=== PATIENT | male | born 1940 | race African-American/Black ===

== ENCOUNTER → 2017-01-26 | Outpatient (CLI) | payer BC ==
[~2017-01-26] MED LIST: B-COCAP2 PO; CALC-51 PO; MULT-506 PO; PRLSR20 PO; TAMS0.4C38 PO; VITAMIN B12 PO; vitamin d PO
[2017-01-26 17:04] LABS: ALB/GLOB RATIO 1.2 (0.9-2); ALKALINE PHOSPHATASE 55 U/L (45-117); ALT/SGPT 34 U/L (12-78); AST/SGOT 16 U/L (15-37); BLOOD UREA NITROGEN 13 mg/dl (7-18); BUN/CREATININE RATIO 11.6 (10-20); CALCIUM 9.1 mg/dl (8.5-10.1); CARBON DIOXIDE 27 mmol/L (21-32); CHLORIDE 108 mmol/L (98-107); GLUCOSE 99 mg/dl (70-99); POTASSIUM 3.9 mmol/L (3.5-5.1); SODIUM 143 mmol/L (136-145)
== END | disposition home or self-care (01) ==
LOC: C.LAB1850 15:00
PROVIDERS: ATTEND Internal Medicine
DX: E55.9 Vitamin D deficiency, unspecified (principal); G62.9 Polyneuropathy, unspecified; R74.8 Abnormal levels of other serum enzymes; Z86.39 Personal history of other endocrine, nutritional and metabolic disease

== ENCOUNTER → 2018-01-06 | Outpatient (CLI) | payer BC | END | disposition home or self-care (01) | LOC: C.LAB1850 15:58 | PROVIDERS: ATTEND Urology | DX: R35.0 Frequency of micturition (principal); R97.20 Elevated prostate specific antigen [PSA]; R35.1 Nocturia ==

== ENCOUNTER 2018-01-23 10:22 | Emergency (ER) | payer BC ==
[~2018-01-23] VITALS: Ht 180.3 cm; Wt 103.6 kg
[2018-01-23 10:28] VITALS: TEMP 36.4; Ht 180.3 cm; Wt 103.6 kg
[2018-01-23] MEDS ORDERED: PROPARACAINE HCL 0.5% OP SOLN 15 ML BTL ONE (10:58)
[2018-01-23] MEDS ORDERED: CYAN100020 PO (11:44)
[2018-01-23] MEDS ORDERED: CHOL100010 PO (11:44)
[2018-01-23] MEDS ORDERED: B-CO1CAP17 PO (11:44)
[2018-01-23] MEDS ORDERED: CALC-51 PO (11:44)
[2018-01-23 12:21] VITALS: BP 154/90; PULSE 62; O2SAT 98
--- NOTE | 2018-01-23 16:35 | EMERGENCY ROOM VISIT NOTE ---
History Report prepared by Ashia: Regino Shepherd Under the Supervision of: Dr. Roque Nowak M.D. First contact with patient: 10:44 Chief Complaint: EYE ASSESSMENT Stated Complaint: B/L RED EYE History of Present Illness The patient is a 77 year old male who presents to the Emergency Room with complaints of persistent left eye redness since yesterday. He states that he was on Skype with his daughter last night, when she noticed his left eye was red. He states that his insisted that he come to the ED for evaluation. He notified his eye doctor, though they were unable see him today. He denies any pain or changes to his vision. He denies any new discharge to his left eye. He notes that his right eye seems more teary-eyed than normal. He denies any crusting to the eye when he woke up this morning. He has a history of conjunctivitis. He wears glasses. He denies any history of glaucoma. He denies any trauma to his eye. He states that he has not been rubbing his eyes. Source of History: patient Onset: since yesterday Position: eye (left) Quality: other (redness) Timing: other (persistent) Note: He denies any pain or changes to his vision. He denies any crustiness or discharge to left eye. Review of Systems See HPI for pertinent positives & negatives. A total of 6 systems reviewed and were otherwise negative. Past Medical & Surgical Medical Problems: (1) Abnormal LFTs (2) Epigastric abdominal pain (3) Non-viral hepatitis Surgical Problems: (1) H/O parathyroidectomy (2) History of cholecystectomy Family History Cancer FH: heart disease FHx: gallbladder disease Hypertension Seizures Social History Smoking Status: Former Smoker Smokeless Tobacco Use: No Alcohol Use: occasionally Drug Use: none Marital Status: Housing Status: lives with significant other Occupation Status: unemployed Current/Historical Medications Scheduled Calcium Carbonate-Vitamin D (Calcium), 1 TAB PO DAILY Cholecalciferol (Vitamin D), 1 TAB PO DAILY Cyanocobalamin (Vitamin B12), 1 TAB PO DAILY Multivitamin (Multivitamin), 1 TAB PO DAILY Omeprazole (Prilosec), 20 MG PO DAILY Tamsulosin Hcl (Flomax), 1 CAP PO DAILY Vitamin B Cmplx/Vitc/Folic Ac (Nephrocaps), 1 CAP PO DAILY Allergies Coded Allergies: No Known Allergies (Verified , 09/23/15) Physical Exam Vital Signs Date Time Temp Pulse Resp B/P (MAP) Pulse Ox O2 Delivery O2 Flow Rate FiO2 01/23/18 12:21 62 18 154/90 98 01/23/18 10:28 36.4 64 16 173/115 97 Room Air Physical Exam GENERAL: Awake, alert, no distress, sitting on stretcher. HEENT: Mucous membranes moist. Conjunctival injection to lateral superior aspect of left eye. No crusting of lashes, no tearing. Left pupil is round and reactive to light. EOM intact and full. Visual acuity is 20/20 in both eyes. NEUROLOGIC: Awake and alert. Oriented x 3, no focal motor deficits. Medical Decision & Procedures Procedure Slit Lamp Examination Indication:left eye redness Slit lamp examination was performed in the standard fashion. Cornea appeared clear. Anterior chamber clear. Scleral injection was present laterally and superiorly. Zero discharge present. Fluorescein examination performed and revealed no uptake. No foreign bodies noted. Negative Hardik sign. The patient tolerated the procedure well without complication. ED Course 1047: The patient was evaluated in room C4. A complete history and physical exam was performed. 1108: I reassessed the patient at this time. I performed a slit lamp exam of the patient's left eye. Left eye pressure was 14 and right eye pressure was 15. 1216: I spoke with Dr. Carter, curbing stonecutter. We discussed the patient's case. He agrees with treatment plan. 1219: I reassessed the patient at this time. He is feeling better and resting comfortably. I discussed the results and treatment plan with the patient. I answered all pertaining questions that he had. He expressed understanding and verbalized agreement. The patient will be discharged home. Medical Decision The patient is a 77 year old male who presents to the ED with complaints of left eye redness. Differential diagnoses considered include subconjunctival hemorrhage, conjunctivitis, glaucoma, and allergic reaction. The patient presents with painless redness of the left eye. There has been no tearing or visual loss. On exam, the patient appeared to have a subconjunctival hemorrhage. Visual acuity was 20/20 in both eyes. Pressure testing in both eyes revealed a normal value. Slit-lamp exam did not reveal any concerning lesion or corneal irritation. The patient did not have any tearing from his eye. His blood pressure was high here but he was anxious and worked up and he states that the last time his blood pressure was taken, it was normal. The patient appears to have a subconjunctival hemorrhage. I did speak with ophthalmology. The patient is being discharged with [id number] eyedrops. He will follow with ophthalmology. If things are worsening, he can return. Medication Reconcilliation Current Medication List: was personally reviewed by me Blood Pressure Screening Patient's blood pressure: Elevated blood pressure Blood pressure disposition: Referred to PCP Consults Time Called: 1124 Consulting Physician: Dr. Carter, curbing stonecutter Returned Call: [address] Carter, curbing stonecutter. We discussed the patient's case. He agrees with treatment plan. Impression Primary Impression: Subconjunctival hemorrhage of left eye Scribe Attestation The scribe's documentation has been prepared under my direction and personally reviewed by me in its entirety. I confirm that the note above accurately reflects all work, treatment, procedures, and medical decision making performed by me. Departure Information Dispostion Home / Self-Care Referrals RV. Da Silva MD (PCP) Forms HOME CARE DOCUMENTATION FORM, IMPORTANT VISIT INFORMATION Patient Instructions My [facility] Additional Instructions use otc saline drops to the eye 1 drop every few hours return if worsening see your eye doctor as scheduled have your blood pressure rechecked by your doctor
== END 2018-01-23 12:21 | disposition home or self-care (01) ==
LOC: C.EDB 10:23 → C.EDC 12:21
DX: H11.32 Conjunctival hemorrhage, left eye (principal); Z87.891 Personal history of nicotine dependence; Z80.9 Family history of malignant neoplasm, unspecified; Z82.49 Family history of ischemic heart disease and other diseases of the circulatory system; Z83.79 Family history of other diseases of the digestive system; Z82.0 Family history of epilepsy and other diseases of the nervous system

== ENCOUNTER → 2018-03-03 | Outpatient (CLI) | payer BC ==
[~2018-03-03] MED LIST changes: +B-CO1CAP17 PO; -B-COCAP2 PO; +CHOL100010 PO; +CYAN100020 PO; -VITAMIN B12 PO; -vitamin d PO
[2018-03-03 16:52] LABS: ALBUMIN 3.7 gm/dl (3.4-5.0); ALT/SGPT 21 U/L (12-78); BLOOD UREA NITROGEN 18 mg/dl (7-18); CARBON DIOXIDE 25 mmol/L (21-32); GLUCOSE 83 mg/dl (70-99); SODIUM 141 mmol/L (136-145)
[2018-03-03 16:55] LABS: ALKALINE PHOSPHATASE 65 U/L (45-117); AST/SGOT 17 U/L (15-37); TOTAL PROTEIN 6.9 gm/dl (6.4-8.2)
== END | disposition home or self-care (01) ==
LOC: C.LABBC 14:05
PROVIDERS: ATTEND Internal Medicine
DX: R74.8 Abnormal levels of other serum enzymes (principal); M81.0 Age-related osteoporosis without current pathological fracture

== ENCOUNTER 2024-03-28 08:02 | Inpatient (IN) ==
--- NOTE | 2024-03-28 09:13 | XRay Report ---
SINGLE VIEW CHEST CLINICAL HISTORY: Dyspnea FINDINGS: An AP, portable, upright chest radiograph is compared to chest x-ray and chest CT dated 05/04. The heart is enlarged noting atherosclerotic calcification of the thoracic aorta. There is pul monary vascular congestion. Bilateral airspace opacities likely represent interstitial edema. There a re small layering pleural effusions with dependent consolidation. No pneumothorax is seen. The skelet al structures are osteopenic. The bony thorax is grossly intact. IMPRESSION: 1. Cardiomegaly with evidence of congestive failure. 2. Bilateral airspace opacities likely represent pulmonary edema. Correlate clinically for evidence o f a superimposed infectious/inflammatory pneumonitis. Radiographic follow-up to resolution is recomme nded. 3. Layering pleural effusions with dependent consolidation. ACT 112: Negative or not required by law. Electronically signed by: Roque Wong M.D. 03/28/2024 9:12 AM
[2024-03-28 09:15] LABS: Basophils # (auto) 0.05 K/uL (0.00-0.20); Basophils % (auto) 0.8 %; Eosinophils # (auto) 0.02 K/uL (0.00-0.50); Eosinophils % (auto) 0.3 %; Hematocrit (blood only) 43.8 % (42.0-52.0); Hemoglobin 15.1 g/dl (14.0-18.0); Immature Granulocytes # (auto) 0.02 K/uL (0.01-0.20); Immature Granulocytes % (auto) 0.3 %; Lymphocytes # (auto) 1.15 K/uL (1.20-3.40); Lymphocytes % (auto) 18.2 %; Mean Corpuscular Hemoglobin 31.3 pg (25.0-34.0); Mean Corpuscular Hgb Conc 34.5 g/dL (32.0-36.0); Mean Corpuscular Volume 90.7 fL (80.0-100.0); Mean Platelet Volume 11.1 fL (9.4-12.4); Monocytes # (auto) 0.43 K/uL (0.11-0.59); Monocytes % (auto) 6.8 %; Neutrophils # (auto) 4.65 K/uL (1.40-6.50); Neutrophils % (auto) 73.6 %; Platelet Count 216 K/uL (130-400); RDW Coefficient of Variation 13.6 % (11.5-14.5); RDW Standard Deviation 45.4 fL (36.4-46.3); Red Blood Count 4.83 M/uL (4.70-6.10); White Blood Count 6.32 K/ul (4.8-10.8)
[2024-03-28] MEDS: FUROSEMIDE INJ 20 MG/2 ML VIAL IV STA (09:35)
[2024-03-28 09:42] LABS: Albumin Globulin Ratio 1.5 (0.9-2); BUN Creatinine Ratio 18.7 (10-20); Bilirubin,Total 0.7 mg/dl (0.2-1.0); Calcium 8.8 mg/dl (8.6-10.3); Creatinine Clr Calc Pharmacy 62.6 ml/min; Est GFR (African American) 90.6 ml/min; Est GFR (Non-African American) 78.2 ml/min; Globulin 2.7 gm/dl (2.5-4.0); Potassium 3.8 mmol/L (3.5-5.1); Total Protein 6.7 gm/dl (6.0-8.3)
[2024-03-28] MEDS: FUROSEMIDE INJ 20 MG/2 ML VIAL IV ONE (09:56)
[2024-03-28 10:01] LABS: Troponin I High Sensitivity 55.8 pg/ml (0-20)
--- NOTE | 2024-03-28 10:40 | History & Physical Report ---
Date of Service March 28, 2024 Assessment & Plan (1) Acute heart failure with preserved ejection fraction: Plan: Lasix 40mg IV given in the ER, continue 40mg IV daily Strict I&Os Daily weight Low Na, heart healthy diet, fluid restrict TTE - consult cardiology if progression of aortic stenosis or new wall motion abnormalities (2) Aortic stenosis, moderate: (3) BPH (benign prostatic hyperplasia): Plan: Continue tamsulosin Bladder scan PVR to rule out if retention causing CHF Plan VTE prophylaxis - Lovenox 40 mg subcu daily Diet - low-sodium, heart healthy, fluid restricted Disposition - observation to med/tele Admission and Anticipated Discharge Date Admission Date: March 28, 2024 History of Present Illness Chief Complaint: Shortness of breath Primary Care Provider: Gee Wynn MD Vasile Thomas is an 84-year-old male with known moderate aortic stenosis who presents to the emergency room with shortness of breath on exertion and orthopnea. Symptoms started 1 week ago and getting progressively worse over the last week. No chest pain. Weight gain of 4 pounds this week. Noticed feet swelling this morning. No palpitations. Lightheadedness 1 week ago but not consistently. He is generally weak when climbing stairs and using his stair lift. No fevers, chills, nasal congestion, sinus pain. He has a mild cough which is no worse than usual. Due to shortness of breath while lying down he is averaging 2 hours of sleep per night. He has no known history of congestive heart failure although has moderate aortic stenosis and known regional wall abnormalities (deferred ischemic workup due to lack of ischemic symptoms). Allergies Allergy/AdvReac Type Severity Reaction Status Date / Time No Known Allergies Allergy Verified 03/28/24 09:08 Home Medications Medication Instructions Recorded Confirmed Type multivitamin (Daily Multi-Vitamin 1 tab PO DAILY #30 tabs 06/06/19 03/28/24 Rx tablet) vitamin B complex (B 1 tab PO DAILY #30 tabs 06/06/19 03/28/24 Rx Complex-Vitamin B12 tablet) calcium carbonate 500 mg-vitamin 1 tab PO DAILY 12/07/19 03/28/24 History D3 10 mcg (400 unit) chewable tablet (Calcium 500 + D) cyanocobalamin (vitamin B-12) 1,000 mcg PO DAILY 12/07/19 03/28/24 History 1,000 mcg tablet (Vitamin B-12) dextroamphetamine-amphetamine 5 mg 5 mg PO BID 05/18/22 03/28/24 History tablet (Adderall) tamsulosin 0.4 mg capsule 0.8 mg (2 x 0.4 mg) PO DAILY #180 10/31/23 03/28/24 Rx caps hydroxyzine HCl 10 mg tablet 5 - 10 mg (0.5 - 1 x 10 mg) PO HS 03/22/24 03/28/24 Rx PRN itching #20 tabs alprazolam 0.25 mg tablet 0.25 mg PO HS PRN Sleep 03/28/24 03/28/24 History aspirin 325 mg tablet 325 mg PO DAILY 03/28/24 03/28/24 History Past Med/Surg History Medical History Sleep disturbance Epigastric abdominal pain Adult ADHD Anxiety disorder Aortic stenosis, moderate Subconjunctival hemorrhage of left eye Abnormal LFTs Surgical History History of parathyroid surgery History of laparoscopic cholecystectomy H/O parathyroidectomy History of cholecystectomy Family History Sister Myocardial infarction Mother Ovarian cancer Schizophrenia Denies family history of Colon cancer Prostate cancer Breast cancer Social History Smoking Status: Former smoker Tobacco Type: Cigarettes, Pipe and Cigars Second Hand Exposure: No; Do You Dip or Chew Tobacco: No; Hx Alcohol Use: No Hx Substance Use: No Preferred Language: Turkish Communication Ability: Effective Visual Impairment: No Limitations Hearing Ability: Normal Transition Rn Required: No Beliefs That Will Affect Care: None marital status: Current Living Situation: Spouse current occupational status: retired Feels Safe at Home: Yes Childhood Exposure to Second-Hand Smoke: Yes Dental Care, Regularly: Yes Physical Activity Frequency: Does not Exercise Seatbelt Use: always Sunscreen Use: No Review of Systems Review of Systems: All systems reviewed & are unremarkable except as noted in HPI & below Physical Exam Constitutional: WD/WN, vitals as above Eyes: + anicteric sclerae; normal pupil size ENMT: external ear and nose normal, oropharynx normal Respiratory: normal respiratory effort; no respiratory distress Auscultation: + crackles (bibasal); breath sounds present, no diminished lung sounds, no rales, no rhonchi and no wheezes Cardiovascular: Rate/Rhythm: regular rate and regular rhythm Heart Sounds: + murmur ([place] loudest LUSB 5/6) Gastrointestinal (Abdomen): normal bowel sounds, soft, nontender, no hepatosplenomegaly Musculoskeletal: no cyanosis or clubbing, extremities motor strength 5/5 Skin: no rashes, warm and dry Neurologic: moves all extremities and awake; not confused Psychiatric: A+Ox3, euthymic affect Results & Data Results & Data Vital Signs (Past 12 Hours) Vital Signs Temp Pulse Pulse Resp BP BP Pulse Ox 03/28/24 09:35 95 H 20 118/92 94 03/28/24 08:58 99 H 20 120/90 91 03/28/24 08:58 91 03/28/24 08:57 91 03/28/24 08:41 102 H 03/28/24 08:06 36.0 C L 106 H 22 143/90 H 96 O2 Del Method 03/28/24 09:35 Room Air 03/28/24 08:58 Room Air 03/28/24 08:58 Room Air 03/28/24 08:57 Room Air 03/28/24 08:41 03/28/24 08:06 Room Air Laboratory Results Abnormal lab results 03/28/24 Range/Units 08:16 Lymph # (Auto) 1.15 L (1.20-3.40) K/uL Chloride 114 H (98-107) mmol/L Carbon Dioxide 20 L (21-32) mmol/L Glucose 103 H (70-99(Fasting)) mg/dl Troponin I High Sens 55.8 H* (0-20) pg/ml Diagnostic Findings SINGLE VIEW CHEST CLINICAL HISTORY: Dyspnea FINDINGS: An AP, portable, upright chest radiograph is compared to chest x-ray and chest CT dated 05/04/2022. The heart is enlarged noting atherosclerotic calcification of the thoracic aorta. There is pulmonary vascular congestion. Bilateral airspace opacities likely represent interstitial edema. There are small layering pleural effusions with dependent consolidation. No pneumothorax is seen. The skeletal structures are osteopenic. The bony thorax is grossly intact. IMPRESSION: 1. Cardiomegaly with evidence of congestive failure. 2. Bilateral airspace opacities likely represent pulmonary edema. Correlate clinically for evidence of a superimposed infectious/inflammatory pneumonitis. Radiographic follow-up to resolution is recommended. 3. Layering pleural effusions with dependent consolidation. Medications Administered ER medications given: Lasix 20 mg IV Lasix 20 mg IV ECG Rate (beats per minute): 106 Rhythm: sinus tachycardia Findings: + PAC and + RBBB Comparison ECG Date: from (May 19, 2023) Change: the following changes noted (PVCs no longer present, PACs now present) Code Status & VTE Plan Code Status Full VTE Prophylaxis Plan VTE Prophylaxis will be ordered: Yes PG Care Time/CCT Total # of Minutes Spent Total Time Spent with Patient: Total time spent is greater than 50% in coordination of care (as documented) at patient's floor/unit and/or counseling patient: Coding Level of Care Code 13654 INT INP/OBS CARE 3/75MIN Diagnoses Acute heart failure with preserved ejection fraction I50.31 Aortic stenosis, moderate I35.0 BPH (benign prostatic hyperplasia) N40.0
[2024-03-28 11:18] LABS: Troponin I High Sensitivity 69.8 pg/ml (0-20)
[2024-03-28 11:27] LABS: Thyroid Stimulating Hormone 4.076 uIu/ml (0.300-4.500)
--- NOTE | 2024-03-28 12:01 | Emergency Department Note ---
Impression & Plan Congestive heart failure, Aortic stenosis ED Provider Note CHIEF COMPLAINT: Shortness of breath HISTORY OF PRESENT ILLNESS: This 84-year-old male patient past medical history of moderate aortic stenosis, ADHD, anxiety disorder, GERD, hyperparathyroidism, LVH presents to the emergency department with complaints of difficulty sleeping and orthopnea. The patient has been to his PCP, he does have follow-up with cardiology scheduled. Patient states his nights have become increasingly more difficult, he sleeps just small increments and wakes up frequently with shortness of breath. He has been Google searching orthopnea and realized that it is related to congestive heart failure. He states the home health nurse that comes to take care of his was concerned about his heart murmur. Patient denies taking any diuretics. 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 REVIEW OF SYSTEMS: A review of systems was performed with positives and pertinent negatives listed in the history of present illness. 10 systems were reviewed and are otherwise negative. ALLERGIES: see below MEDICATIONS: see below PMH: see below SOCIAL HISTORY: see below DDx: Congestive heart failure, pneumonia, PE, hypertensive urgency, sleep apnea, asthma, among others PHYSICAL EXAM: Vital signs reviewed. General: Generally well-appearing 84-year-old male, in no significant distress. HEENT: No scleral icterus, PERRLA, neck supple. MMM Cardiovascular: Regular rate and rhythm,, systolic ejection murmur, no extra sounds. Pulmonary: Fine crackles to auscultation bilaterally, normal work of breathing sitting upright, increased work of breathing lying flat Abdomen: Soft, nontender, nondistended, positive bowel sounds. Musculoskeletal: Atraumatic, 2+ peripheral edema. Neurologic: Patient awake alert and oriented x 3, speech is clear Skin: Warm, dry, no rash EMERGENCY DEPARTMENT COURSE/MDM: This patient was evaluated and appeared to be in no significant distress. Patient did not require oxygen supplementation however was sitting up right at the bedside due to comfort. When lying flat, his work of breathing is significant. The patient's laboratory work reveals a mild elevation of the high-sensitivity troponin. Chest x-ray is consistent with cardiomegaly and congestive heart failure. The patient had been initially given 20 mg of IV Lasix. He was given an additional 20 mg of IV Lasix. On my reevaluation the patient was doing well, able to ambulate to the restroom on his own. Given his elevated troponin, congestive change on chest x-ray and orthopnea, hospitalist service was consulted for admission and further management. Case management was consulted to help assure the patient's 's caregivers are able to step when overnight. Patient was feeling comfortable with this plan and agrees. MONITORING: An order for cardiac monitoring was placed and the patient is noted to be in a normal sinus rhythm 87 beats per minute. RADIOLOGY: Chest x-ray to my interpretation reveals evidence of congestive heart failure, cardiomegaly. Otherwise defer to radiology is over read. EKG: To my interpretation reveals sinus tachycardia with PACs, left atrial enlargement, left axis deviation, right bundle branch block with rate of 106. QTc of 510. DISPOSITION: Admission Past Med/Surg History Medical History Sleep disturbance Epigastric abdominal pain Adult ADHD Anxiety disorder Aortic stenosis, moderate Subconjunctival hemorrhage of left eye Abnormal LFTs Surgical History History of parathyroid surgery History of laparoscopic cholecystectomy H/O parathyroidectomy History of cholecystectomy Family History Sister Myocardial infarction Mother Ovarian cancer Schizophrenia Denies family history of Colon cancer Prostate cancer Breast cancer Social History Smoking Status: Former smoker Tobacco Type: Cigarettes Second Hand Exposure: No; Do You Dip or Chew Tobacco: No; Hx Alcohol Use: No Hx Substance Use: No Preferred Language: Moldovan Communication Ability: Effective Visual Impairment: No Limitations Hearing Ability: Normal marital status: Current Living Situation: Spouse current occupational status: retired Feels Safe at Home: Yes Childhood Exposure to Second-Hand Smoke: Yes Dental Care, Regularly: Yes Physical Activity Frequency: Does not Exercise Seatbelt Use: always Sunscreen Use: No Allergies Allergies Allergy/AdvReac Type Severity Reaction Status Date / Time No Known Allergies Allergy Verified 03/28/24 09:08 Home Meds Home Medications Medication Instructions Recorded Confirmed calcium carbonate 500 mg-vitamin 1 tab PO DAILY 12/07/19 03/28/24 D3 10 mcg (400 unit) chewable tablet (Calcium 500 + D) cyanocobalamin (vitamin B-12) 1,000 mcg PO DAILY 12/07/19 03/28/24 1,000 mcg tablet (Vitamin B-12) dextroamphetamine-amphetamine 5 mg 5 mg PO BID 05/18/22 03/28/24 tablet (Adderall) alprazolam 0.25 mg tablet 0.25 mg PO HS PRN Sleep 03/28/24 03/28/24 aspirin 325 mg tablet 325 mg PO DAILY 03/28/24 03/28/24 Previous Rx's Medication Instructions Recorded multivitamin (Daily Multi-Vitamin 1 tab PO DAILY #30 tabs 06/06/19 tablet) vitamin B complex (B 1 tab PO DAILY #30 tabs 06/06/19 Complex-Vitamin B12 tablet) tamsulosin 0.4 mg capsule 0.8 mg (2 x 0.4 mg) PO DAILY #180 10/31/23 caps hydroxyzine HCl 10 mg tablet 5 - 10 mg (0.5 - 1 x 10 mg) PO HS 03/22/24 PRN itching #20 tabs Results & Data (ED) Vital Signs Vital Signs - 24 hr 03/28/24 08:06 03/28/24 08:41 03/28/24 08:57 Temperature 36.0 C L Temperature Source Temporal Artery Scan Pulse Rate 106 H 102 H Pulse Rate [Apical] Pulse Rhythm [Apical] Pulse Strength [Apical] Respiratory Rate 22 Respiratory Effort / Characteristics Non-Labored Respiratory Depth Normal Respiratory Pattern Blood Pressure 143/90 H Blood Pressure [Right Arm] Blood Pressure Mean 107 Blood Pressure Mean [Right Arm] Blood Pressure Position [Right Arm] Pulse Oximetry 96 91 Oxygen Delivery Method Room Air Room Air Sepsis Recent Fever Within 48 Hours No Sepsis New/Unexplained Change in Mental Status N/A Sepsis Action Taken by Nursing No Action Required 03/28/24 08:58 03/28/24 08:58 03/28/24 09:35 Temperature Temperature Source Pulse Rate Pulse Rate [Apical] 99 H 95 H Pulse Rhythm [Apical] Pulse Strength [Apical] Respiratory Rate 20 20 Respiratory Effort / Characteristics Non-Labored Non-Labored Respiratory Depth Normal Normal Respiratory Pattern Blood Pressure Blood Pressure [Right Arm] 120/90 118/92 Blood Pressure Mean Blood Pressure Mean [Right Arm] 100 100 Blood Pressure Position [Right Arm] Pulse Oximetry 91 91 94 Oxygen Delivery Method Room Air Room Air Room Air Sepsis Recent Fever Within 48 Hours Sepsis New/Unexplained Change in Mental Status Sepsis Action Taken by Nursing 03/28/24 11:15 Temperature Temperature Source Pulse Rate Pulse Rate [Apical] 87 Pulse Rhythm [Apical] Regular Pulse Strength [Apical] Normal Respiratory Rate 16 Respiratory Effort / Characteristics Non-Labored Respiratory Depth Normal Respiratory Pattern Regular Blood Pressure Blood Pressure [Right Arm] 121/93 Blood Pressure Mean Blood Pressure Mean [Right Arm] 102 Blood Pressure Position [Right Arm] Sitting Pulse Oximetry 95 Oxygen Delivery Method Sepsis Recent Fever Within 48 Hours Sepsis New/Unexplained Change in Mental Status Sepsis Action Taken by [facility] Medications Current Medication List: was personally reviewed by me Laboratory Data Attestation: I reviewed the patient's lab results. 03/28/24 08:16 03/28/24 08:16 Lab Results 03/28/24 03/28/24 03/28/24 Range/Units 08:16 10:20 10:28 WBC 6.32 (4.8-10.8) K/ul RBC 4.83 (4.70-6.10) M/uL Hgb 15.1 (14.0-18.0) g/dl Hct 43.8 (42.0-52.0) % MCV 90.7 (80.0-100.0) fL MCH 31.3 (25.0-34.0) pg MCHC 34.5 (32.0-36.0) g/dL RDW Std Deviation 45.4 (36.4-46.3) fL RDW Coeff of Renetta 13.6 (11.5-14.5) % Plt Count 216 (130-400) K/uL MPV 11.1 (9.4-12.4) fL Immature Gran % (Auto) 0.3 % Neut % (Auto) 73.6 % Lymph % (Auto) 18.2 % [place] % (Auto) 6.8 % Eos % (Auto) 0.3 % Baso % (Auto) 0.8 % Neut # (Auto) 4.65 (1.40-6.50) K/uL Lymph # (Auto) 1.15 L (1.20-3.40) K/uL [place] # (Auto) 0.43 (0.11-0.59) K/uL Eos # (Auto) 0.02 (0.00-0.50) K/uL Baso # (Auto) 0.05 (0.00-0.20) K/uL Immature Gran # (Auto) 0.02 (0.01-0.20) K/uL Sodium 142 (136-145) mmol/L Potassium 3.8 (3.5-5.1) mmol/L Chloride 114 H (98-107) mmol/L Carbon Dioxide 20 L (21-32) mmol/L Anion Gap 8 (3-11) BUN 17 (6-23) mg/dl Creatinine 0.91 (0.6-1.4) mg/dl Est Cr Clr Drug Dosing 62.6 ml/min Est GFR ( Amer) 90.6 ml/min Est GFR (Non-Af Amer) 78.2 ml/min BUN/Creatinine Ratio 18.7 (10-20) Glucose 103 H (70-99(Fasting)) mg/dl Calcium 8.8 (8.6-10.3) mg/dl Total Bilirubin 0.7 (0.2-1.0) mg/dl AST 28 (13-39) U/L ALT 46 (7-52) U/L Alkaline Phosphatase 52 (34-104) U/L Troponin I High Sens 55.8 H* 69.8 H* D Cancelled (0-20) pg/ml Total Protein 6.7 (6.0-8.3) gm/dl Albumin 4.0 (3.4-5.0) gm/dl Globulin 2.7 (2.5-4.0) gm/dl Albumin/Globulin Ratio 1.5 (0.9-2) TSH 4.076 (0.300-4.500) uIu/ml Administered Medications Discontinued Medications Furosemide (Furosemide Inj 20 Mg/2 Ml Vial) 20 mg IV NOW STA Stop: 03/28/24 08:54 Last Admin: 03/28/24 09:35 Dose: 20 mg Documented By: LILIA Furosemide (Furosemide Inj 20 Mg/2 Ml Vial) 20 mg IV ONE ONE Stop: 03/28/24 09:47 Last Admin: 03/28/24 09:56 Dose: 20 mg Documented By: LILIA Imaging Data Radiologist's Impression: Chest X-Ray 03/28/24 08:52 SINGLE VIEW CHEST CLINICAL HISTORY: Dyspnea FINDINGS: An AP, portable, upright chest radiograph is compared to chest x-ray and chest CT dated 05/04/2022. The heart is enlarged noting atherosclerotic calcification of the thoracic aorta. There is pulmonary vascular congestion. Bilateral airspace opacities likely represent interstitial edema. There are small layering pleural effusions with dependent consolidation. No pneumothorax is seen. The skeletal structures are osteopenic. The bony thorax is grossly intact. IMPRESSION: 1. Cardiomegaly with evidence of congestive failure. 2. Bilateral airspace opacities likely represent pulmonary edema. Correlate clinically for evidence of a superimposed infectious/inflammatory pneumonitis. Radiographic follow-up to resolution is recommended. 3. Layering pleural effusions with dependent consolidation. ACT 112: Negative or not required by law. Electronically signed by: Roque Wong M.D. 03/28/2024 9:12 AM Discharge Plan Visit Data Chief Complaint: Shortness of Breath/Dyspnea Stated Complaint: unable to sleep, trouble breathing when laying ED Provider: Omaira Lucas Discharge Problem: Congestive heart failure, Aortic stenosis Forms Stand Alone Forms: [employer] Prescriptions Prescriptions: No Action tamsulosin 0.4 mg capsule 0.8 mg PO DAILY Qty: 180 1RF multivitamin [Daily Multi-Vitamin] tablet 1 tab PO DAILY Qty: 30 0RF vitamin B complex [B Complex-Vitamin B12] tablet 1 tab PO DAILY Qty: 30 0RF dextroamphetamine-amphetamine [Adderall] 5 mg tablet 5 mg PO BID Rx Instructions: Morning and Noon hydroxyzine HCl 10 mg tablet 5 - 10 mg PO HS PRN (Reason: itching) Qty: 20 0RF cyanocobalamin (vitamin B-12) [Vitamin B-12] 1,000 mcg Tablet 1,000 mcg PO DAILY calcium carbonate-vitamin D3 [Calcium 500 + D] 500 mg(1,250mg) -400 unit Tablet,Chewable 1 tab PO DAILY aspirin 325 mg Tablet 325 mg PO DAILY alprazolam 0.25 mg tablet 0.25 mg PO HS PRN (Reason: Sleep) Referrals Referrals: Gee Wynn MD [Primary Care Provider] - Discharge Problem: Congestive heart failure Qualifiers: Heart failure type: unspecified Heart failure chronicity: acute Qualified Code(s): I50.9 - Heart failure, unspecified Aortic stenosis Qualifiers: Cardiac valve disease etiology: etiology unspecified Qualified Code(s): I35.0 - Nonrheumatic aortic (valve) stenosis
[2024-03-28 13:08] LABS: Appearance Urine Clear (Clear); Bilirubin Urine Negative (Negative); Blood Urine Negative (Negative); Color Urine Yellow; Glucose Urine UA Negative (Negative); Ketones Urine Negative (Negative); Leukocyte Esterase Urine Negative (Negative); Nitrite Urine Negative (Negative); Protein Urine Negative (Negative); Specific Gravity Urine 1.011 (1.000-1.030); Urobilinogen Urine Negative (Negative); pH Urine 5.5 (4.5-7.5)
[2024-03-28 15:08] LABS: Magnesium 2.2 mg/dl (1.7-2.4)
[2024-03-28] MEDS: ACETAMINOPHEN 325 MG TAB PO PRN (16:16)
[2024-03-28] MEDS ORDERED: ENOXAPARIN INJ 40 MG/0.4 ML SYR SQ SCH (21:00)
[2024-03-29 07:07] LABS: BUN Creatinine Ratio 24.2 (10-20); Calcium 8.5 mg/dl (8.6-10.3); Creatinine Clr Calc Pharmacy 62.6 ml/min; Est GFR (African American) 90.6 ml/min; Est GFR (Non-African American) 78.2 ml/min; Potassium 3.3 mmol/L (3.5-5.1)
[2024-03-29] MEDS: FUROSEMIDE 40 MG/4 ML VIAL IV SCH (08:11)
[2024-03-29] MEDS: MULTIVITAMIN TAB PO SCH (08:11)
[2024-03-29] MEDS: VITAMIN B COMPLEX TAB PO SCH (08:11)
[2024-03-29] MEDS: TAMSULOSIN HCL 0.4 MG CAP PO SCH (08:11)
[2024-03-29 08:58] LABS: Basophils # (auto) 0.05 K/uL (0.00-0.20); Basophils % (auto) 0.8 %; Eosinophils # (auto) 0.09 K/uL (0.00-0.50); Eosinophils % (auto) 1.4 %; Hematocrit (blood only) 39.9 % (42.0-52.0); Hemoglobin 13.7 g/dl (14.0-18.0); Immature Granulocytes # (auto) 0.04 K/uL (0.01-0.20); Immature Granulocytes % (auto) 0.6 %; Lymphocytes # (auto) 1.22 K/uL (1.20-3.40); Lymphocytes % (auto) 18.6 %; Mean Corpuscular Hemoglobin 30.9 pg (25.0-34.0); Mean Corpuscular Hgb Conc 34.3 g/dL (32.0-36.0); Mean Corpuscular Volume 90.1 fL (80.0-100.0); Mean Platelet Volume 11.5 fL (9.4-12.4); Monocytes # (auto) 0.54 K/uL (0.11-0.59); Monocytes % (auto) 8.2 %; Neutrophils # (auto) 4.61 K/uL (1.40-6.50); Neutrophils % (auto) 70.4 %; Platelet Count 201 K/uL (130-400); RDW Coefficient of Variation 13.5 % (11.5-14.5); RDW Standard Deviation 45.1 fL (36.4-46.3); Red Blood Count 4.43 M/uL (4.70-6.10); White Blood Count 6.55 K/ul (4.8-10.8)
--- NOTE | 2024-03-29 09:17 | Urology Consultation ---
<Statement entered by Mckay Dutta MD - 03/29/24 21:48> I have discussed Mr. Thomas' case with NOHELIA Navarrete and agree with the above documentation. Urinary retention currently managed with indwelling ocasio catheter. Hematuria most likely from traumatic catheterization or rapid decompression of his bladder. This should gradually clear, but catheter can be hand-irrigated if needed. We will plan to arrange outpatient followup to discuss urinary retention and further hematuria workup. -Mckay Dutta MD. Date of Consultation March 29, 2024 Assessment & Plan (1) Urinary retention: (2) BPH (benign prostatic hyperplasia): (3) Elevated PSA: Plan 84-year-old male admitted with acute heart failure. On admission, patient was found to be in urinary retention and a Ocasio catheter was placed. Urinary retention is currently managed with a Ocasio catheter. Ocasio is draining appropriatelyurine is clear yellow. Patient does report some hematuria after Ocasio insertion, but this appears to have cleared. Would recommend maintaining Ocasio catheter for 7-10 days to allow for bladder rest. Will arrange outpatient voiding trial in the urology clinic. We also discussed outpatient cystoscopy for further evaluation of the bladder and prostate. Recommend continuing tamsulosin. PSA 03/28/2024 noted to be 9.612. Prior PSA from 06/2023 was 2.895. We discussed potential implications of elevated PSA including benign explanations with inflammation and infection. Will plan to follow-up with repeat PSA as an outpatient after acute issues have resolved. Urology will sign-off. Please call with any further questions or concerns. History of Present Illness Attending Physician: Noelle Cheng MD History of Present Illness 84-year-old male who presented to the emergency room 03/28/24 with shortness of breath on exertion and orthopnea and admitted to medicine service with acute heart failure. In the ED, patient was bladder scanned for PVR of 900ml. A Ocasio catheter was placed. Patient developed hematuria after catheter placement. Urology was consulted for urinary retention. Urinalysis (03/28/24) without signs of infection or blood. Labs (03/29/2024): WBC 6.55, hemoglobin 13.7, creatinine 0.91. PSA (03/28/24): 9.612. Patient is known to the urology clinic, follows with Dr. Call. History of BPH on tamsulosin. Patient examined at bedside this AM. Awake, resting in bed on arrival. No acute distress. Ocasio intact and draining clear yellow urine. He reports that hematuria has cleared. Denies any significant pain or discomfort at present. Denies fever, chills, nausea, vomiting. Prior to this admission, he does note intermittent difficulty with voiding. Allergies Allergy/AdvReac Type Severity Reaction Status Date / Time No Known Allergies Allergy Verified 03/28/24 09:08 Home Medications Medication Instructions Recorded Confirmed Type multivitamin (Daily Multi-Vitamin 1 tab PO DAILY #30 tabs 06/06/19 03/28/24 Rx tablet) vitamin B complex (B 1 tab PO DAILY #30 tabs 06/06/19 03/28/24 Rx Complex-Vitamin B12 tablet) calcium carbonate 500 mg-vitamin 1 tab PO DAILY 12/07/19 03/28/24 History D3 10 mcg (400 unit) chewable tablet (Calcium 500 + D) cyanocobalamin (vitamin B-12) 1,000 mcg PO DAILY 12/07/19 03/28/24 History 1,000 mcg tablet (Vitamin B-12) dextroamphetamine-amphetamine 5 mg 5 mg PO BID 05/18/22 03/28/24 History tablet (Adderall) tamsulosin 0.4 mg capsule 0.8 mg (2 x 0.4 mg) PO DAILY #180 10/31/23 03/28/24 Rx caps hydroxyzine HCl 10 mg tablet 5 - 10 mg (0.5 - 1 x 10 mg) PO HS 03/22/24 03/28/24 Rx PRN itching #20 tabs alprazolam 0.25 mg tablet 0.25 mg PO HS PRN Sleep 03/28/24 03/28/24 History aspirin 325 mg tablet 325 mg PO DAILY 03/28/24 03/28/24 History Patient History Medical History Sleep disturbance Epigastric abdominal pain Adult ADHD Anxiety disorder Aortic stenosis, moderate Subconjunctival hemorrhage of left eye Abnormal LFTs Surgical History History of parathyroid surgery History of laparoscopic cholecystectomy H/O parathyroidectomy History of cholecystectomy Family History Sister Myocardial infarction Mother Ovarian cancer Schizophrenia Denies family history of Colon cancer Prostate cancer Breast cancer Social History Smoking Status: Former smoker Tobacco Type: Cigarettes, Pipe and Cigars Second Hand Exposure: No; Do You Dip or Chew Tobacco: No; Hx Alcohol Use: No Hx Substance Use: No Preferred Language: Canadian Communication Ability: Effective Visual Impairment: No Limitations Hearing Ability: Normal Heavy Duty Custodian Required: No Beliefs That Will Affect Care: None marital status: Current Living Situation: Spouse current occupational status: retired Feels Safe at Home: Yes Childhood Exposure to Second-Hand Smoke: Yes Dental Care, Regularly: Yes Physical Activity Frequency: Does not Exercise Seatbelt Use: always Sunscreen Use: No Assistive Devices: Glasses Review of Systems Review of Systems: All systems reviewed & are unremarkable except as noted in HPI & below Physical Exam Constitutional: no acute distress Respiratory: no respiratory distress and no labored breathing Musculoskeletal: Head/Neck/Chest: normocephalic Skin: No visible rashes or lesions to exposed skin areas Neurologic: moves all extremities and awake Psychiatric: A+Ox3, euthymic affect Genitourinary: Ocasio intact and draining clear yellow urine Results & Data Vital Signs (Past 12 Hours) Vital Signs Temp Pulse Pulse Resp BP Pulse Ox O2 Del Method 03/29/24 08:02 36.6 C 76 18 112/72 93 Room Air 03/29/24 03:09 36.6 C 65 18 99/62 L 94 Room Air 03/28/24 23:08 36.3 C L 53 L 18 110/66 96 Room Air 03/28/24 21:42 36.6 C 83 18 118/72 92 Room Air PG Care Time/CCT Total # of Minutes Spent Total Time Spent with Patient: Total time spent is greater than 50% in coordination of care (as documented) at patient's floor/unit and/or counseling patient: Coding Level of Care Code 93284 INT INP/OBS CARE 2/55MIN Diagnoses Urinary retention R33.9 BPH (benign prostatic hyperplasia) N40.0 Elevated PSA R97.20
[2024-03-29] MEDS: POTASSIUM CHLORIDE CRTAB 20 MEQ TABCR PO SCH (11:19)
--- NOTE | 2024-03-29 15:53 | Cardiology Consultation ---
Date of Consultation March 29, 2024 Assessment & Plan (1) Congestive heart failure: (2) Cardiomyopathy: (3) Aortic stenosis: (4) Elevated troponin: (5) Mitral regurgitation: Plan 1. Congestive heart failure: His congestive heart failure is most likely on the basis of aortic stenosis causing left ventricular dysfunction and failure, although other possibilities exist. This has improved with diuresis and I would continue. 2. Cardiomyopathy: We do not know the cause of his left ventricular dysfunction and that could have another cause other than aortic stenosis, however aortic stenosis is the most likely. The worsening of the mitral regurgitation could be contributory. Premature ventricular beats can also cause a cardiomyopathy but usually not this quickly but that is another possibility. It could also be ischemic or idiopathic. The best approach would be to perform cardiac catheterization to see whether he has coronary artery disease, both to determine whether that might be a cause of the cardiomyopathy and to see whether he would be a candidate for a TAVR versus an aortic valve replacement. He is agreeable to this approach and I will place him on the schedule for tomorrow afternoon and assuming he is stable for it we should be able to do with that. Otherwise we would have to wait till next week. I would probably hold off on testing for other causes of cardiomyopathy for the moment. He is currently not on any medications for his cardiomyopathy, I think low-dose beta-blockade would be a good idea and I will start him on carvedilol 3.125 mg twice a day. I am going to hold off on vasodilators such as PATITO, ARB or Entresto due to the aortic nasra nosis. Jardiance or Farxiga might not be unreasonable, especially if he would have coronary disease even if it is not a cause of his cardiomyopathy. 3. Aortic stenosis: He has had progressive aortic stenosis, it seems to have progressed quite significantly over the last year based on echocardiography and symptoms. At this point the valve will need to be treated if we are to keep this from progressing, in all likelihood it will progress quite quickly if we do not do anything with it. I discussed TAVR or open valve replacement with him and he is open to the idea. 4. Elevated troponin: His troponin is slightly elevated without a particular pattern, this is not really consistent with ischemia but more likely supply/demand mismatch. I suspect he does not have significant coronary disease but we would need to catheterization to be sure. 5. Mitral regurgitation: Last summer he had only trace mitral regurgitation, now it is perhaps moderate, that can be due to left ventricular dilatation affecting mitral valve closure. Morphologically the valve seems normal by echo so it is unlikely that mitral valve surgery would be required. History of Present Illness Reason for Consultation: CHF, cardiomyopathy, not aortic stenosis Attending Physician: Noelle Cheng MD History of Present Illness This is an 84-year-old male with a history of depression, peripheral neuropathy and hyperparathyroidism and remote alcohol abuse who also has a history of longstanding premature ventricular beats as well as aortic stenosis. He had been doing well when last seen in the office in the summer 2022. His PVCs have not been specifically treated and his aortic stenosis has not been severe and has been followed by echocardiography. He has never had invasive evaluation. He presented to the emergency room on March 28, 2024 with symptoms of shortness of breath. He described orthopnea and feels that this has been progressive with him waking up frequently due to shortness of breath. He evidently identified this as a symptom of heart failure when he looked it up himself. He has not had exertional chest discomfort. He has noticed some edema over the last several days which has improved during this hospitalization. In the emergency room he was found to be in congestive heart failure including by chest x-ray. 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 His electrocardiogram in the emergency room showed sinus tachycardia at 106 bpm with a bifascicular block pattern (right bundle branch block and left anterior fascicular block). This was similar to prior electrocardiograms. Laboratory studies included low-grade cardiac enzymes (peak troponin 69.8 but very little change control specialist 4 measurements) and his creatinine was 0.91. On his echocardiogram April 18, 2023 his left ventricular function was low normal with mild concentric left ventricular hypertrophy and a mildly dilated left ventricle with moderate aortic stenosis with a valve area reported 0.85 cm. An echocardiogram today (March 29, 2024) shows moderate to severe left ventricular dysfunction with an ejection fraction of 30 to 35%, concentric left ventricular hypertrophy and mild left ventricular dilatation. He has severe valvular aortic stenosis with a valve area calculated around 0.5 cm. He also has mild to moderate mitral regurgitation and an elevated right ventricular pressure (which is consistent with congestive heart failure), in contrast in March 2023 he had only trace mitral regurgitation. This could be related to ventricular dilatation or perhaps that has helped because him to go into congestive heart failure currently. Allergies Allergy/AdvReac Type Severity Reaction Status Date / Time No Known Allergies Allergy Verified 03/28/24 09:08 Home Medications Medication Instructions Recorded Confirmed Type multivitamin (Daily Multi-Vitamin 1 tab PO DAILY #30 tabs 06/06/19 03/28/24 Rx tablet) vitamin B complex (B 1 tab PO DAILY #30 tabs 06/06/19 03/28/24 Rx Complex-Vitamin B12 tablet) calcium carbonate 500 mg-vitamin 1 tab PO DAILY 12/07/19 03/28/24 History D3 10 mcg (400 unit) chewable tablet (Calcium 500 + D) cyanocobalamin (vitamin B-12) 1,000 mcg PO DAILY 12/07/19 03/28/24 History 1,000 mcg tablet (Vitamin B-12) dextroamphetamine-amphetamine 5 mg 5 mg PO BID 05/18/22 03/28/24 History tablet (Adderall) tamsulosin 0.4 mg capsule 0.8 mg (2 x 0.4 mg) PO DAILY #180 10/31/23 03/28/24 Rx caps hydroxyzine HCl 10 mg tablet 5 - 10 mg (0.5 - 1 x 10 mg) PO HS 03/22/24 03/28/24 Rx PRN itching #20 tabs alprazolam 0.25 mg tablet 0.25 mg PO HS PRN Sleep 03/28/24 03/28/24 History aspirin 325 mg tablet 325 mg PO DAILY 03/28/24 03/28/24 History Patient History Medical History Sleep disturbance Epigastric abdominal pain Adult ADHD Anxiety disorder Aortic stenosis, moderate Subconjunctival hemorrhage of left eye Abnormal LFTs Surgical History History of parathyroid surgery History of laparoscopic cholecystectomy H/O parathyroidectomy History of cholecystectomy Family History Sister Myocardial infarction Mother Ovarian cancer Schizophrenia Denies family history of Colon cancer Prostate cancer Breast cancer Social History Smoking Status: Former smoker Tobacco Type: Cigarettes, Pipe and Cigars Second Hand Exposure: No; Do You Dip or Chew Tobacco: No; Hx Alcohol Use: No Hx Substance Use: No Preferred Language: Indonesian Communication Ability: Effective Visual Impairment: No Limitations Hearing Ability: Normal Ekg Technician Required: No Beliefs That Will Affect Care: None marital status: Current Living Situation: Spouse current occupational status: retired Feels Safe at Home: Yes Childhood Exposure to Second-Hand Smoke: Yes Dental Care, Regularly: Yes Physical Activity Frequency: Does not Exercise Seatbelt Use: always Sunscreen Use: No Assistive Devices: Glasses Review of Systems Review of Systems: All systems reviewed & are unremarkable except as noted in HPI & below Physical Exam Physical Exam: Constitutional: Alert, cooperative and in no distress. HEENT: Unremarkable Neck: No jugular venous distention, carotid pulses are normal and equal bilaterally without bruits. Pulmonary: Decreased breath sounds on auscultation bilaterally. Cardiac: Regular rhythm with a grade 2/6 crescendo decrescendo murmur at the base, a grade 2/6 holosystolic murmur at the apex, no gallop or rub. Abdomen: Soft, nontender with normal bowel sounds. Extremities: No edema. Distal pulses intact. Neurologic: No focal findings. Skin: No rash, ecchymoses or petechiae. Results & Data Vital Signs (Past 12 Hours) Vital Signs Temp Pulse Resp BP Pulse Ox O2 Del Method O2 Del Method 03/29/24 13:26 Room Air 03/29/24 11:45 36.6 C 71 18 95/58 L 92 Room Air 03/29/24 08:02 36.6 C 76 18 112/72 93 Room Air Laboratory Results Cardiac Enzymes 03/28/24 03/29/24 Range/Units 18:21 05:53 Troponin I High Sens 65.1 H* 55.6 H* (0-20) pg/ml CBC 03/29/24 Range/Units 05:53 WBC 6.55 (4.8-10.8) K/ul RBC 4.43 L (4.70-6.10) M/uL Hgb 13.7 L (14.0-18.0) g/dl Hct 39.9 L (42.0-52.0) % Plt Count 201 (130-400) K/uL Neut # (Auto) 4.61 (1.40-6.50) K/uL Lymph # (Auto) 1.22 (1.20-3.40) K/uL [place] # (Auto) 0.54 (0.11-0.59) K/uL Eos # (Auto) 0.09 (0.00-0.50) K/uL Baso # (Auto) 0.05 (0.00-0.20) K/uL Comprehensive Metabolic Panel 03/29/24 Range/Units 05:53 Sodium 139 (136-145) mmol/L Potassium 3.3 L (3.5-5.1) mmol/L Chloride 109 H (98-107) mmol/L Carbon Dioxide 22 (21-32) mmol/L BUN 22 (6-23) mg/dl Creatinine 0.91 (0.6-1.4) mg/dl Glucose 106 H (70-99(Fasting)) mg/dl Calcium 8.5 L (8.6-10.3) mg/dl Intake and Output 03/29/24 03/29/24 03/29/24 06:59 14:59 22:59 Intake Total 250 / 250 240 / 240 Output Total 350 / 850 900 / 900 Balance -100 / -600 -660 / -660 Intake: Oral 250 / 250 240 / 240 Output: Urine Amount (Catheter) 350 / 850 900 / 900 [place]/Indwelling 350 / 850 900 / 900 Other: Weight 77.1 kg Weight Measurement Method Standing Scale Diagnostic Findings His electrocardiogram shows sinus rhythm and sinus tachycardia with bifascicular block. Telemetry shows sinus rhythm with his conduction abnormality throughout, frequent premature ventricular beats with some couplets and one 5 beat run of nonsustained ventricular tachycardia PG Care Time/CCT Total # of Minutes Spent Total Time Spent with Patient: Total time spent is greater than 50% in coordination of care (as documented) at patient's floor/unit and/or counseling patient: Coding Level of Care Code 13034 INT INP/OBS CARE 3/75MIN Diagnoses Congestive heart failure I50.9 Heart failure chronicity: acute Heart failure type: unspecified Cardiomyopathy I42.9 Aortic stenosis I35.0 Cardiac valve disease etiology: etiology unspecified Elevated troponin R79.89 Mitral regurgitation I34.0 (1) Congestive heart failure Heart failure chronicity: acute Heart failure type: unspecified Qualified Code(s): I50.9 - Heart failure, unspecified (3) Aortic stenosis Cardiac valve disease etiology: etiology unspecified Qualified Code(s): I35.0 - Nonrheumatic aortic (valve) stenosis
--- NOTE | 2024-03-29 16:03 | XCELERA ---
[id number]
[2024-03-29] MEDS ORDERED: PROCHLORPERAZINE 5 MG in SYRINGE 4 ML IV PRN (17:18)
--- NOTE | 2024-03-29 17:18 | Communication Note ---
Date of Service: March 29, 2024 10 beats VT -check BMP and mag Reviewed purchasing internship recs -carvedilol added -on schedule for cath tomorrow -appreciate input
--- NOTE | 2024-03-29 17:29 | Hospitalist Progress Note ---
Date of Service March 29, 2024 Assessment & Plan (1) Acute systolic heart failure: Plan: 84 y/o with history of aortic stenosis, previously moderate, who was admitted with new onset acute heart failure. Dyspnea and pulmonary edema improved with IV diuretics -remains volume overloaded - continue diuresis with IV lasix -BMP today reviewed, replaced mild hypokalemia, BUN/Cr stable and normal Cr -TTE reviewed - new moderately severe systolic dysfunction, worsened now severe by Echo, mod MR -consulted Dr. Gordon - added low dose carvedilol, planned for coronary angiogram tomorrow 10 beats WCT on tele - on IV diuretics, repeat BMP and mag now (2) Severe aortic stenosis: Plan: -now severe by Echo -assessment by coronary angiogram 03/30 (3) Urinary retention: Plan: Hx BPH Severe urinary retention in ED and ocasio placed Some mild hematuria likely ocasio trauma - monitor Urology consulted recommended catheter for 7-10d, follow up in urology clinic, outpatient cystoscopy, flomax, PSA elevated at 9.6 - planned for repeat PSA once acute issues resolved (4) BPH (benign prostatic hyperplasia): Plan: Continue tamsulosin Bladder scan PVR to rule out if retention causing CHF Plan VTE prophylaxis - SCDs, anticoagulation held because of hematuria Admission and Anticipated Discharge Date Admission Date: March 28, 2024 Subjective [place] much better in AM when I saw him with significant improvement in dyspnea and improvement in leg edema In afternoon dyspnea was more prominent again Discussed need for cardiology consultation and discussed option of thoracentesis Physical Exam 2 Physical Exam: PHYSICAL EXAMINATION Last 24h vital signs reviewed, see documentation in flowsheet General: comfortable appearing, no distress, very pleasant gentleman HEENT: Normocephalic, atraumatic, pupils round and equal, sclerae anicteric, no conjunctival injection, moist mucus membranes Lungs: Normal respiratory effort. Crackles one third of the way up in both bases, left base especially diminished no wheezing Heart: Regular rate and rhythm, no murmurs. +JVD Abdomen: Soft, nontender, nondistended. Bowel sounds present. Extremities: Warm, dry, well-perfused. Mild extremity edema. Neuro: Alert and oriented x 4, face symmetric, moves 4 extremities well Psych: Normal affect and behavior Results & Data Results & Data Vital Signs (Past 12 Hours) Vital Signs Temp Pulse Resp BP Pulse Ox O2 Del Method O2 Del Method 03/29/24 15:55 36.7 C 86 18 105/81 93 Room Air 03/29/24 13:26 Room Air 03/29/24 11:45 36.6 C 71 18 95/58 L 92 Room Air 03/29/24 08:02 36.6 C 76 18 112/72 93 Room Air Laboratory Results 03/29/24 05:53 03/29/24 05:53 PG Care Time/CCT Total # of Minutes Spent Total Time Spent with Patient: Total time spent is greater than 50% in coordination of care (as documented) at patient's floor/unit and/or counseling patient: Coding Level of Care Code 71467 SUB INP/OBS CARE 3/50MIN Diagnoses Acute systolic heart failure I50.21 Severe aortic stenosis I35.0 Urinary retention R33.9 BPH (benign prostatic hyperplasia) N40.0
[2024-03-29] MEDS: bisacodyL 5 MG TABEC PO PRN (18:04)
[2024-03-29] MEDS: carvediloL 3.125 MG TAB PO SCH (18:04)
[2024-03-29 18:17] LABS: BUN Creatinine Ratio 24.2 (10-20); Calcium 8.5 mg/dl (8.6-10.3); Creatinine Clr Calc Pharmacy 62.6 ml/min; Est GFR (African American) 90.6 ml/min; Est GFR (Non-African American) 78.2 ml/min; Potassium 3.4 mmol/L (3.5-5.1)
[2024-03-29] MEDS: POTASSIUM CHLORIDE CRTAB 20 MEQ TABCR PO STA (20:31)
[2024-03-29] MEDS: SENNA 8.6 MG TAB PO PRN (20:32)
[2024-03-29] MEDS: DOCUSATE SODIUM 100 MG CAP PO PRN (20:32)
[2024-03-29] MEDS: ALPRAZolam 0.25 MG TABLET PO PRN (20:32)
--- NOTE | 2024-03-29 21:41 | Communication Note ---
Date of Service: March 29, 2024 Notified by nursing of concern for increased dyspnea. Evaluated pt at bedside; no in any acute distress and no increased work of breathing. Denies chest pain/ chest tightness. States that he is having intermittent dyspnea and has been for much of the day. Lungs with crackles in bases. Repeat CXR per my read with pulmonology vasculature congestion, also concern for continued opacity especially in the left base. Will plan to give an additional 20mg IV Lasix this evening. Afebrile and no leukocytosis- does continue to have opacity on CXR so low threshold to start antibiotics. EKG largely unchanged form prior.. Troponin= 54.8; down from 55.6 earlier in the day. K= 3.6; will give an additional 20meq KCl.
[2024-03-29 21:48] LABS: BUN Creatinine Ratio 22.3 (10-20); Calcium 8.5 mg/dl (8.6-10.3); Creatinine Clr Calc Pharmacy 50.9 ml/min; Est GFR (African American) 70.5 ml/min; Est GFR (Non-African American) 60.8 ml/min; Magnesium 1.9 mg/dl (1.7-2.4); Potassium 3.6 mmol/L (3.5-5.1)
[2024-03-29 22:01] LABS: Troponin I High Sensitivity 54.8 pg/ml (0-20)
[2024-03-29] MEDS: FUROSEMIDE INJ 20 MG/2 ML VIAL IV ONE (23:12)
[2024-03-30] MEDS: POTASSIUM CHLORIDE CRTAB 20 MEQ TABCR PO ONE (00:56)
[2024-03-30] MEDS: MELATONIN 3 MG TAB PO PRN ×2 (01:58→22:00)
--- NOTE | 2024-03-30 07:44 | XRay Report ---
XR chest 1V portable HISTORY: Dyspnea COMPARISON: Chest 03/28/2024. FINDINGS: No pneumothorax. The heart remains mildly enlarged. Moderate pulmonary edema and small bila teral pleural effusions persist. No acute fractures. Bibasilar densities are nonspecific but favor at electasis. IMPRESSION: No significant change in pulmonary edema and small bilateral pleural effusions. ACT 112: Negative or not required by law. Electronically signed by: Sixto Potter M.D. 03/30/2024 7:43 AM
[2024-03-30 08:22] LABS: BUN Creatinine Ratio 25.8 (10-20); Calcium 8.9 mg/dl (8.6-10.3); Creatinine Clr Calc Pharmacy 61.2 ml/min; Est GFR (African American) 88.3 ml/min; Est GFR (Non-African American) 76.2 ml/min; Magnesium 2.1 mg/dl (1.7-2.4)
--- NOTE | 2024-03-30 12:22 | Electrocardiogram Report ---
Test Reason : Blood Pressure : / mmHG Vent. Rate : 083 BPM Atrial Rate : 083 BPM P-R Int : 182 ms QRS Dur : 144 ms QT Int : 380 ms P-R-T Axes : 039 -47 068 degrees QTc Int : 446 ms Sinus rhythm with frequent Premature ventricular complexes Possible Left atrial enlargement Right bundle branch block Left anterior fascicular block Bifascicular block Abnormal ECG When compared with ECG of 28-MAR-2024 08:14, (unconfirmed) Premature ventricular complexes are now Present Premature atrial complexes are no longer Present HR has decreased Confirmed by Milind Gordon ([id number]) on 03/30/2024 12:22:36 PM Referred By: REFERRED SELF Confirmed By:Milind Gordon
--- NOTE | 2024-03-30 14:08 | Pre Anesthesia Assessment ---
Date of Service March 30, 2024 Pre Sedation Assessment Vital Signs Temp Pulse Pulse Resp BP Pulse Ox O2 Del Method 03/30/24 13:50 88 14 126/82 98 Room Air 03/30/24 13:37 03/30/24 10:54 97.5 F L 56 L 18 111/71 96 Room Air 03/30/24 09:02 Room Air 03/30/24 09:02 96 H 03/30/24 07:38 97.2 F L 66 18 113/70 95 Room Air 03/30/24 03:10 97.5 F L 74 20 107/72 95 Room Air 03/30/24 00:16 76 03/29/24 22:27 97.5 F L 85 20 108/71 98 Room Air 03/29/24 19:38 98.1 F 73 18 103/66 94 Room Air 03/29/24 15:55 98.1 F 86 18 105/81 93 Room Air O2 Del Method 03/30/24 13:50 03/30/24 13:37 Room Air 03/30/24 10:54 03/30/24 09:02 03/30/24 09:02 03/30/24 07:38 03/30/24 03:10 03/30/24 00:16 03/29/24 22:27 03/29/24 19:38 03/29/24 15:55 Cardiovascular + regular rate Respiratory normal respiratory effort, lungs clear to auscultation Pre-Sedation Airway Assessment Smoking Status: Former smoker Hx Sleep Apnea: No Hx Difficult Intubation: No Short, Thick Neck: No Thyromental Distance: > or= 3.5 Finger Breadths Oral Cavity: + Dentures Mallampati Class: III ASA: ASA3 NPO Status Date of Last Intake of Fluids: 03/29/24 Time of Last Intake of Fluids: 17:00 Date of Last Intake of Solid Food: 03/29/24 Time of Last Intake of Solid Foods: 17:00 Procedure Planning Contraindications for Sedation: none Current Medications Reviewed: Yes Notes The planned sedation has been discussed with the patient. Informed Consent was o btained. I have identified the patient, determined the appropriateness of sedation and have assessed the patient immediately prior to the procedure. All medicine(s) and interventions are by my order.
[2024-03-30] MEDS: OPTIRAY 350 ONE (14:45)
[2024-03-30] MEDS: fentaNYL citrate PF 100 MCG/2 ML VIAL ONE (14:46)
[2024-03-30] MEDS: MIDAZOLAM HCL 1 MG/ML 2ML VIAL ONE (14:46)
[2024-03-30] MEDS: niCARdipine HCL INJ 2.5 MG/ML 10 ML AMP ONE (14:46)
[2024-03-30] MEDS: NITROGLYCERIN/D5W 100MCG/ML 20ML SYR ONE (14:46)
--- NOTE | 2024-03-30 14:50 | Post Anesthesia Assessment ---
Date of Service March 30, 2024 Post Sedation Assessment Vital Signs Temp Pulse Pulse Resp BP Pulse Ox O2 Del Method 03/30/24 13:50 88 14 126/82 98 Room Air 03/30/24 13:37 03/30/24 10:54 97.5 F L 56 L 18 111/71 96 Room Air 03/30/24 09:02 Room Air 03/30/24 09:02 96 H 03/30/24 07:38 97.2 F L 66 18 113/70 95 Room Air 03/30/24 03:10 97.5 F L 74 20 107/72 95 Room Air 03/30/24 00:16 76 03/29/24 22:27 97.5 F L 85 20 108/71 98 Room Air 03/29/24 19:38 98.1 F 73 18 103/66 94 Room Air 03/29/24 15:55 98.1 F 86 18 105/81 93 Room Air O2 Del Method 03/30/24 13:50 03/30/24 13:37 Room Air 03/30/24 10:54 03/30/24 09:02 03/30/24 09:02 03/30/24 07:38 03/30/24 03:10 03/30/24 00:16 03/29/24 22:27 03/29/24 19:38 03/29/24 15:55 Recovery Score Activity: Moves 4 extremities Respiration: Deep Breath/Cough Circulation: +/-20% PreAnes Value Consciousness: Fully Awake Oxygen Saturation: O2 needed for >90% Discharge Sedation Level of Care: Fast Track Phase II Post Sedation Plan On clinical assessment, the patient appears to have tolerated the sedation without complications. Patient is recovering as anticipated. Patient will continue to be monitored by nursing and may be discharged when sedation discharge criteria are met per below protocol. Upon Completions of procedure up to 15 minutes continue every 5 minute vital signs and the P.A.R. score; then discharge to a Phase I or Fast Track to Phase II per the following guidelines: * Discharge Patient to appropriate Phase II area if PAR is 8 or greater or return to pre- procedure baseline. The post - procedure orders will be as directed. * If PAR score is less than 8 or not return to pre-procedure baseline then alexa ent will follow Phase I monitoring till PAR is reached for Phase II. The Phase I may be done in procedure room or may call to secure a Phase I area. * If naloxone or flumazenil are used for reversal, hold in Phase I for continued monitoring from when last reversal dose was given for a minimum of 60 minutes or longer pending the nurse and/or physician discretion of patient condition before discharge to Phase II. Please call the Sedation Physician to re-evaluate and complete post-note for discharge to Phase II area. Do NOT discharge from procedure sedation or Phase 1 until post- sedation e valuation note is complete by procedure /sedation MD Sedation Discharge Instructions to be given to the patient at discharge to home.
--- NOTE | 2024-03-30 15:00 | Cardiac Catheterization ---
[facility] Data: Visual Merchandising Director Cardiac Status Clinical evaluation leading to the procedure CAD Presenation: Sx unlikely to be ischemic Heart Failure: NYHA Class: CCS IV Diagnostic Physicians Name: Bony Griffin MD Closure Device Recommendations: Medical Therapy and/or Counseling Cardiac Cath Procedure Full Procedure Date March 30, 2024 Pre-Procedure Diagnosis Pre-Procedure Diagnosis: Valvular Disease, CHF and Cardiomyopathy AUC Score AUC Score: 7 Post-Procedure Diagnosis Post-Procedure Diagnosis: Moderate CAD Procedure(s) Performed Procedure(s) Performed: Coronary Angiography Industrial Boilermaker Bony Griffin MD Brake Coupler Dinkey(s) Claudia Estimated Blood Loss Estimated Blood Loss: 5 Medication(s) Medication(s): Fentanyl, Heparin, Lidocaine 1%, Nicardipine, Nitroglycerin and Versed Summary of Findings Indication: Severe aortic stenosis, LV dysfunction, CHF Access: 6 Fr slender right radial artery Catheters: [place] Findings: LM -normal caliber, luminal irregularities LAD -large caliber, 20% proximal to mid disease. Distal vessel wraps around apex. Medium D2 without significant disease. Circumflex -large caliber, no significant disease. Gives off large high OM1. Branch of OM1 with 60% ostial stenosis remainder of OM1 without significant dis ease. RCA -dominant, large caliber, no significant disease. Small PDA, medium terminal PLB without significant disease. Arterial Closure: TR band Summary: 1. Mild to moderate nonobstructive coronary artery disease -25% proximal to mid LAD disease Small Branch off OM1 with 60% ostial stenosis Recommendations: Referral to tertiary center for TAVR evaluation Continued ASCVD risk factor modification Hemodynamics Rest Ao:: 106/75/9 Final Ao: 105/79/107 LV: -- Recommendations Recommendations: Medical Therapy and/or Counseling Specimens Specimens: None Radiation Exposure (mGy) 729 Contrast (mls) 40 Anesthesia Moderate [id number] Procedural Complication(s) None Disposition PCU I attest to the content of the Intraoperative Record and any orders documented therein. Any exceptions are noted below. [facility] Card Cath Procedure Codes Cardiac Catheterization Procedure 1: Cardiovascular Cath Procedures: 05834 Coronaries Moderate Sedation Procedure 1: Sedation/Anesthesia: 14389 Mod Sedation by the same physician;Init15 Min Child Age 5 & Up PG Care Time/CCT Total # of Minutes Spent Total Time Spent with Patient: Total time spent is greater than 50% in coordination of care (as documented) at patient's floor/unit and/or counseling patient:
--- NOTE | 2024-03-30 15:29 | Hospitalist Progress Note ---
Date of Service March 30, 2024 Assessment & Plan (1) Acute systolic heart failure: Plan: 84 y/o with history of aortic stenosis, previously moderate, who was admitted with new onset acute heart failure. Dyspnea and pulmonary edema improved with IV diuretics -remains volume overloaded - 20 mg IV additional lasix and potassium given last night by resident -TTE reviewed - new moderately severe systolic dysfunction, worsened now severe by Echo, mod MR -consulted Dr. Gordon - added low dose carvedilol, consider jardiance or farxiga, hold off on PATITO/ARB/entresto because of severe , recommended coronary angiogram -BMP today reviewed, electrolytes and Cr normal, BUN elevated at 24. urine is dark but might be old blood/hematuria resolving, BP normal -continue lasix IV in AM, AM BMP mag -if still dyspneic with relative euvolemia pursue thoracentesis for comfort. bilateral pleural effusions probably related to heart failure Coronary angiogram 03/30: Summary: 1. Mild to moderate nonobstructive coronary artery disease -25% proximal to mid LAD disease Branch off of large OM1 with 60% ostial stenosis 10 beats WCT on tele 03/29 - replaced potassium of 3.4, mag 1.9. May be triggered by mild electrolyte depletion setting IV diuretics and underlying cardiomyopathy (2) Severe aortic stenosis: Plan: -now severe by Echo -coronary angiogram 03/30 -signal manager recommended referral to tertiary care for consideration of TAVR (3) BPH (benign prostatic hyperplasia): Plan: BPH with severe urinary retention in ED requiring ocasio catheter placement Some mild hematuria likely ocasio trauma - monitor, improved Urology consulted recommended catheter for 7-10d, follow up in urology clinic, outpatient cystoscopy, flomax, PSA elevated at 9.6 - planned for repeat PSA once acute issues resolved Plan VTE prophylaxis - SCDs, anticoagulation held because of hematuria Admission and Anticipated Discharge Date Admission Date: March 28, 2024 Subjective had a bad night with increasing shortness of breath, resident gave more IV lasix which did help has felt ok today wrt dyspnea and tolerated cath procedure well urine in ocasio is dark, not red any more Physical Exam 2 Physical Exam: PHYSICAL EXAMINATION Last 24h vital signs reviewed, see documentation in flowsheet General: comfortable appearing, no distress, very pleasant gentleman HEENT: Normocephalic, atraumatic, pupils round and equal, sclerae anicteric, no conjunctival injection, moist mucus membranes Lungs: Normal respiratory effort. Crackles chcf in both bases, DTP R>L base Heart: Regular rate and rhythm, no murmurs. +JVD Abdomen: Soft, nontender, nondistended. Bowel sounds present. dark urine in ocasio Extremities: Warm, dry, well-perfused. Mild extremity edema. Neuro: Alert and oriented x 4, face symmetric, moves 4 extremities well Psych: Normal affect and behavior Results & Data Results & Data Vital Signs (Past 12 Hours) Vital Signs Temp Pulse Pulse Resp BP Pulse Ox O2 Del Method 03/30/24 15:10 85 18 117/78 92 Room Air 03/30/24 14:55 77 18 117/89 92 Room Air 03/30/24 13:50 88 14 126/82 98 Room Air 03/30/24 13:37 03/30/24 10:54 36.4 C L 56 L 18 111/71 96 Room Air 03/30/24 09:02 Room Air 03/30/24 09:02 96 H 03/30/24 07:38 36.2 C L 66 18 113/70 95 Room Air O2 Del Method 03/30/24 15:10 03/30/24 14:55 03/30/24 13:50 03/30/24 13:37 Room Air 03/30/24 10:54 03/30/24 09:02 03/30/24 09:02 03/30/24 07:38 Laboratory Results 03/29/24 05:53 03/30/24 07:36 PG Care Time/CCT Total # of Minutes Spent Total Time Spent with Patient: Total time spent is greater than 50% in coordination of care (as documented) at patient's floor/unit and/or counseling patient: Coding Level of Care Code 88483 SUB INP/OBS CARE 2/35MIN Diagnoses Acute systolic heart failure I50.21 Severe aortic stenosis I35.0 BPH (benign prostatic hyperplasia) N40.0
[2024-03-30] MEDS: HEPARIN (PORCINE) 1000 UNIT/ML 10 ML (CATH LAB USE ONLY) ONE (19:33)
[2024-03-30] MEDS: ALPRAZolam 0.25 MG TABLET PO STA (22:00)
--- NOTE | 2024-03-31 03:55 | Communication Note ---
Date of Service: March 31, 20241999 Notified that patient was experiencing was experiencing increased dyspnea and anxiety. Patient noted to have waxing and waning dyspnea througout admission in association with CHF associated pulmonary edema/pleural effusions - considering thoracentesis. Patient's symptoms were noted to be largely situational and resolve with company and conversation. Patient elected to take night time dose of PRN Xanax. 2100 Notified that patient was feeling like something was 'off' and that he could not fall asleep. Presented to bedside to evaluate patient. He noted ongoing dyspnea w/o chest pain that improves whenever he has someone in the room to talk with him. Patient denies headaches, lightheadedness, or dizziness. He is not experiencing abdominal discomfort or bowel/bladder changes. Vitals wnl. Physical exam revealed RRR w/ systolic murmur and unlabored breathing w/ crackles in the lower lobes bilaterally (unchanged from prior examinations). Ongoing lower extremity edema. Lagunas draining clear yellow urine. Nasal canula applied by nursing for comfort. Patient elected to try additional dose of Xanax 0.25, Melatonin, and Tylenol. Nursing noted resolution of symptoms and patient fell asleep shortly after. 0300 Notified that patient now awakening from sleep in a panicked state, vital signs remain normal. Patient notes he has not slept well his entire admission and believes he is becoming 'sleep deprived'. Patient noted to have a recurring cycle of falling asleep, sleeping for 5-10 minutes, and they waking up again panicked. Symptoms resolve with 1:1 support and conversation. Patient noting significant life stressors regarding his own health, family's health, and career. Patient takes Vistaril at home, offered a dose for symptom support. Patient accepted. 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
[2024-03-31] MEDS: hydrOXYzine HCl 25 MG TAB PO STA (04:34)
[2024-03-31] MEDS ORDERED: FAMOTIDINE 20 MG TAB PO PRN (07:58)
[2024-03-31] MEDS: ALUMINUM/MAGNESIUM SUSP 30 ML UDC PO PRN (08:46)
[2024-03-31] MEDS: CYANOCOBALAMIN (B-12) 500 MCG TABLET PO SCH (08:47)
[2024-03-31 09:17] LABS: BUN Creatinine Ratio 30.2 (10-20); Creatinine Clr Calc Pharmacy 59.3 ml/min; Est GFR (Non-African American) 73.3 ml/min; Magnesium 2.1 mg/dl (1.7-2.4); Potassium 4.2 mmol/L (3.5-5.1)
--- NOTE | 2024-03-31 09:17 | Cardiology Progress Note ---
Date of Service March 31, 2024 Assessment & Plan (1) Congestive heart failure: (2) Cardiomyopathy: (3) Aortic stenosis: (4) Elevated troponin: (5) Mitral regurgitation: (6) NSVT (nonsustained ventricular tachycardia): (7) CAD (coronary artery disease): Plan 1. Congestive heart failure: His congestive heart failure is most likely on the basis of aortic stenosis causing left ventricular dysfunction and failure, although other possibilities exist. This has improved with diuresis and I would continue although we need to be careful not to drop his intravascular volume due to his aortic stenosis. If he goes home over the weekend I would make sure that he is seen in our heart failure area midweek next week to monitor his volume status closely. 2. Cardiomyopathy: We do not know the cause of his left ventricular dysfunction and that could have another cause other than aortic stenosis, however aortic stenosis is the most likely. The worsening of the mitral regurgitation could be contributory. Premature ventricular beats can also cause a cardiomyopathy but usually not this quickly but that is another possibility. It evidently is not ischemic. It could be idiopathic. I would probably hold off on testing for other causes of cardiomyopathy for the moment. He is currently on minimal medications for his cardiomyopathy, I think low-dose beta-blockade is a good idea and he is on carvedilol 3.125 mg twice a day. With his labile blood pressure I am not going to increase that today. I am going to hold off on vasodilators such as PATITO, ARB or Entresto due to the aortic stenosis. Jardiance or Farxiga might not be unreasonable, especially since he does have coronary disease even if it is not a cause of his cardiomyopathy. 3. Aortic stenosis: He has had progressive aortic stenosis, it seems to have progressed quite significantly over the last year based on echocardiography and symptoms. At this point the valve will need to be treated if we are to keep this from progressing, in all likelihood it will progress quite quickly if we do not do anything with it. He will need an outpatient evaluation for possible TAVR. 4. Elevated troponin: His troponin is slightly elevated without a particular pattern, this is not really consistent with ischemia but consistent with supply/demand mismatch. His underlying coronary artery disease could be contributory. 5. Mitral regurgitation: Last summer he had only trace mitral regurgitation, now it is perhaps moderate, that can be due to left ventricular dilatation affecting mitral valve closure. Morphologically the valve seems normal by echo so it is unlikely that mitral valve surgery would be required. 6. NSVT: He does have some ventricular rhythms, these are brief and relatively slow., this is a little bit worrisome given his left ventricular dysfunction and beta-blockade would be a good idea for this but I would not start antiarrhythmic therapy at this time. I would like to gradually go up on his beta-blockade although at the moment I am not increasing it. This can be done as an outpatien t. 7. Coronary disease: He does have coronary disease, he is on aspirin which I would continue, he should also be on a statin and I will start atorvastatin. If he goes home over the weekend I will make sure that we have made some type of arrangement for TAVR evaluation, that may have been done by Dr. Griffin. If not I can make those arrangements Tuesday. He would prefer [facility] over [facility] but does not have a true preference. Admission and Anticipated Discharge Date Admission Date: March 30, 2024 Subjective Cardiac catheterization yesterday shows nonobstructive coronary disease which should be treated with risk factor modification but does not indicate a need for revascularization or intervention. Intermittent dyspnea during the night noted. This is felt to be at least in part anxiety related. Today he is not feeling short of breath but he is concerned about getting short of breath at night at home. In general at rest however he does not have cardiovascular symptoms. Physical Exam Physical Exam: Constitutional: Alert, cooperative and in no distress. HEENT: Unremarkable Neck: No jugular venous distention, carotid pulses are normal and equal bilaterally without bruits. Pulmonary: Decreased breath sounds on auscultation bilaterally. Cardiac: Regular rhythm with a grade 2/6 crescendo decrescendo murmur at the base, a grade 2/6 holosystolic murmur at the apex, no gallop or rub. Abdomen: Soft, nontender with normal bowel sounds. Extremities: No edema. Distal pulses intact. Neurologic: No focal findings. Skin: No rash, ecchymoses or petechiae. Results & Data Vital Signs (Past 12 Hours) Vital Signs Temp Pulse Pulse Resp BP BP Pulse Ox 03/31/24 08:13 36.5 C 63 24 150/57 H 92 03/31/24 03:00 36.5 C 73 23 120/89 98 03/31/24 00:51 72 22 110/83 96 03/31/24 00:00 67 18 91/55 L 90 03/30/24 22:55 36.5 C 80 18 96/69 L 97 03/30/24 22:00 78 O2 Del Method O2 Flow Rate 03/31/24 08:13 Room Air 03/31/24 03:00 Nasal Cannula 03/31/24 00:51 Nasal Cannula 2 03/31/24 00:00 Nasal Cannula 03/30/24 22:55 Nasal Cannula 03/30/24 22:00 Laboratory Results Comprehensive Metabolic Panel 03/31/24 Range/Units 08:20 Sodium 140 (136-145) mmol/L Potassium 4.2 (3.5-5.1) mmol/L Chloride 110 H (98-107) mmol/L Carbon Dioxide 24 (21-32) mmol/L BUN 29 H (6-23) mg/dl Creatinine 0.96 (0.6-1.4) mg/dl Glucose 121 H (70-99(Fasting)) mg/dl Calcium 9.0 (8.6-10.3) mg/dl Intake and Output 03/30/24 03/31/24 03/31/24 22:59 06:59 14:59 Output Total 500 / 650 150 / 650 Balance -500 / -650 -150 / -650 Output: Urine Amount (Catheter) 500 / 650 150 / 650 Lagunas/Indwelling 500 / 650 150 / 650 Other: Weight 76.5 kg Weight Measurement Method Built in [facility] Diagnostic Findings Telemetry sinus rhythm in the 80s generally. He does have PVCs, and runs of a slow ventricular rhythm. These are brief runs and evidently asymptomatic. PG Care Time/CCT Total # of Minutes Spent Total Time Spent with Patient: Total time spent is greater than 50% in coordination of care (as documented) at patient's floor/unit and/or counseling patient: Coding Level of Care Code 25323 SUB INP/OBS CARE 3/50MIN Diagnoses Congestive heart failure I50.9 Heart failure chronicity: acute Heart failure type: unspecified Cardiomyopathy I42.9 Aortic stenosis I35.0 Cardiac valve disease etiology: etiology unspecified Elevated troponin R79.89 Mitral regurgitation I34.0 NSVT (nonsustained ventricular tachycardia) I47.29 CAD (coronary artery disease) I25.10 (1) Congestive heart failure Heart failure chronicity: acute Heart failure type: unspecified Qualified Code(s): I50.9 - Heart failure, unspecified (3) Aortic stenosis Cardiac valve disease etiology: etiology unspecified Qualified Code(s): I35.0 - Nonrheumatic aortic (valve) stenosis
[2024-03-31] MEDS ORDERED: DEXTROAMPHETAMINE/AMPHETAMINE ER 5 MG CAP PO ONE (10:05)
[2024-03-31] MEDS: ASPIRIN 325 MG ECTAB PO SCH (10:17)
[2024-03-31] MEDS: DEXTROAMPHETAMINE/AMPHETAMIME IR 5 MG TAB PO SCH (10:18)
[2024-03-31] MEDS: ATORVASTATIN 20 MG TAB PO SCH (10:20)
--- NOTE | 2024-03-31 16:01 | Discharge Summary ---
Date of Service March 31, 2024 Admission HPI Per Admitting Provider Vasile Thomas is an 84-year-old male with known moderate aortic stenosis who presents to the emergency room with shortness of breath on exertion and orthopnea. Symptoms started 1 week ago and getting progressively worse over the last week. No chest pain. Weight gain of 4 pounds this week. Noticed feet swelling this morning. No palpitations. Lightheadedness 1 week ago but not consistently. He is generally weak when climbing stairs and using his stair lift. No fevers, chills, nasal congestion, sinus pain. He has a mild cough which is no worse than usual. Due to shortness of breath while lying down he is averaging 2 hours of sleep per night. He has no known history of congestive heart failure although has moderate aortic stenosis and known regional wall abnormalities (deferred ischemic workup due to lack of ischemic symptoms). Principal Diagnosis acute systolic heart failure, severe aortic stenosis, mild-moderate coronary artery disease, BPH with acute urinary retention Discharge Exam PHYSICAL EXAMINATION Last 24h vital signs reviewed, see documentation in flowsheet General: sitting in bed, comfortable appearing HEENT: Normocephalic, atraumatic, pupils round and equal, sclerae anicteric, no conjunctival injection, moist mucus membranes Lungs: Normal respiratory effort. Heart: neck veins flat Abdomen: Soft, nondistended. yellow urine in ocasio Extremities: Warm, dry, well-perfused. Mild extremity edema. Neuro: Alert and oriented x 4, face symmetric, moves 4 extremities well Psych: Normal affect and behavior Discharge Data Allergies Allergy/AdvReac Type Severity Reaction Status Date / Time No Known Allergies Allergy Verified 03/28/24 09:08 Consultations 03/28/24 10:24 ED Decision to Admit Stat 03/28/24 14:02 Consult Urology Routine 03/29/24 15:04 Consult Cardiology Routine 03/31/24 15:53 Consult [facility] regional rehabilitation director Routine Procedures Performed Operation Date: 03/30/24 11:30 Actual Procedures p Cineradiography w/Routine Exam - Bony Griffin MD s Cath, Coronaries ONLY (no LV) - Bony Griffin MD Ordered Studies 03/30/24 07:01 CL Cath Imgs for PACS use only Routine Hospital Course (1) Acute systolic heart failure: 84 y/o with history of aortic stenosis, previously moderate, who was admitted with new onset acute heart failure. Dyspnea and pulmonary edema improved with IV diuretics - diuresed with IV Lasix from 8182 kg down to 76.5 kg with improvement in dyspnea, lung exam, edema -TTE obtained - new moderately severe systolic dysfunction, worsened now severe by Echo, mod MR -consulted Dr. Gordon - added low dose carvedilol, consider jardiance or farxiga, hold off on PATITO/ARB/entresto because of severe , recommended coronary angiogram - only mild to moderate nonobstructive coronary artery disease on angiogram therefore etiology of cardiomyopathy is likely his aortic stenosis, other possibilities remain - discharged on Lasix 20 mg daily and low-dose carvedilol, made referral to heart failure clinic, also follow-up with his hair and makeup designer Dr. Rodriguez Coronary angiogram 03/30: Summary: 1. Mild to moderate nonobstructive coronary artery disease -25% proximal to mid LAD disease Branch off of large OM1 with 60% ostial stenosis - aspirin was continued and atorvastatin was added for coronary artery disease (2) Severe aortic stenosis: -now severe by Echo -coronary angiogram 03/30 -hair and makeup designer recommended referral to tertiary care for consideration of TAVR - Drs. Griffin and ana Gonzalez making outpatient referral (3) BPH (benign prostatic hyperplasia): BPH with severe urinary retention in ED requiring ocasio catheter placement, gross hematuria following catheter placement was likely traumatic in nature and resolved urology consulted this admission Some mild hematuria likely ocasio trauma - monitor, improved Urology recommended catheter for 7-10d, follow up in urology clinic, outpatient cystoscopy, flomax, PSA elevated at 9.6 - planned for repeat PSA once acute issues resolved has urology appointment 04/05 Total Time Total Time Spent Total Time Spent (In Minutes): I personally spent: 40 minutes today on clinical care activities including: reviewing chart notes and vital signs reviewing labs discussion with hair and makeup designer discussion with career representative examining and counseling the patient writing orders, prescriptions, discharge instructions coordinating clinic follow-up/referral documentation Discharge Plan Discharge Items Patient Disposition: Home - Self-Care Reason For Visit: ACUTE CHF Discharge Diagnosis: acute systolic heart failure, severe aortic stenosis, mild-moderate coronary artery disease, BPH with acute urinary retention Activity: Resume your previous activity Non-emergency contact: Primary Care Provider, Instructor Physical Education and Urologist Call non-emergency contact if: you have any medication questions, your symptoms worsen and you have a fever Follow-up/Referrals: Mikie Call MD [Physician] - Gee Wynn MD [Primary Care Provider] - 04/04/24 3:00 pm (Hospital follow up scheduled April 04 at 3:00 with Maria De Jesus Jonna) Bony Rodriguez MD [Physician] - Jing Palma PA-C [Physician Foundry Superintendant] - Diet: Low Sodium (2gm) Addtl Attending Provider Instructions: You were treated for acute heart failure (fluid buildup in lungs and legs) related to severe aortic stenosis which has also caused some weakening of your heart squeeze -this was treated with diuretics -you had coronary angiogram and you do have some mild to moderate coronary artery disease, but stents were not required -the hair and makeup designer recommended continuing daily aspirin, low dose of carvedilol, atorvastatin to help prevent progression of coronary artery disease -you will be on a diuretic - lasix (furosemide) -referral will be made to tertiary care to consider aortic valve procedure -follow up with Dr. Rodriguez - call to see if your appointment can be moved up -we made referral to heart failure clinic to check on your medications and symptoms - ideally they will see you within 1-2 weeks monitor your weight every morning -if you gain 3 pounds or more over 1-2 nights or 5 pounds or more in a week it is likely water weight - call your hair and makeup designer for adjustment of diuretic dose -likewise if you have increasing leg swelling and/or trouble breathing You had urinary retention related to enlarged prostate. Your PSA was elevated - hopefully just related to urinary retention/catheter placement -keep taking tamsulosin -keep the catheter for now -follow up with Dr. Call on 04/05 as scheduled. He can do a voiding trial, recheck PSA, arrange any other necessary testing Addtl Meter Mechanic Provider Instructions: Call your Primary Care doctor if any of the following symptoms or problems start or get worse: * Shortness of breath or difficulty breathing * Wake up at night short of breath * Chest pain * Cough * Swelling of your hands, feet, or legs * More fatigued or tired with your normal activity * Palpitations - sudden fast heart beats WEIGHT * Weigh yourself every morning after using the bathroom. * Use the same scale. * Wear the same amount of clothing. * Write your weight down on a chart. * Call your Primary Care doctor if you gain more than 2-3 pounds in 1-2 days. MEDICATIONS * Use this discharge instruction sheet for medication instructions. * Take your medications at the time your doctor ordered. * Do not skip a dose of your medicines. * If you miss a dose of medicine, take it as soon as possible, but DO NOT DOUBLE A DOSE. * Read your medicine information when you get home. * Know all of the side effects of your medicine. If in doubt, ask your pharmacist * Call your Primary Care doctor's office if you have any side effects. * Be sure all of your doctors know what medicine and herbs you take (including cold, flu, and herbal medicine). Take the following with you to your follow-up doctor appointments: * Weight Chart * Medication List * List of questions Do not drink excessive alcohol, beer or wine. Pending Studies at Discharge: No Stand-Alone Forms: My [facility], Smoking Cessation Medications and DC Order Prescriptions: New atorvastatin 20 mg Tablet 20 mg PO QAM Qty: 30 0RF carvedilol 3.125 mg Tablet 3.125 mg PO BIDM Qty: 60 0RF furosemide 20 mg tablet 20 mg PO QAM Qty: 30 0RF potassium chloride 10 mEq tablet extended release 10 meq PO DAILY Qty: 30 0RF Continued tamsulosin 0.4 mg capsule 0.8 mg PO DAILY Qty: 180 1RF multivitamin [Daily Multi-Vitamin] tablet 1 tab PO DAILY Qty: 30 0RF vitamin B complex [B Complex-Vitamin B12] tablet 1 tab PO DAILY Qty: 30 0RF dextroamphetamine-amphetamine [Adderall] 5 mg tablet 5 mg PO BID Rx Instructions: Morning and Noon hydroxyzine HCl 10 mg tablet 5 - 10 mg PO HS PRN (Reason: itching) Qty: 20 0RF cyanocobalamin (vitamin B-12) [Vitamin B-12] 1,000 mcg Tablet 1,000 mcg PO DAILY calcium carbonate-vitamin D3 [Calcium 500 + D] 500 mg(1,250mg) -400 unit Tablet,Chewable 1 tab PO DAILY aspirin 325 mg Tablet 325 mg PO DAILY alprazolam 0.25 mg tablet 0.25 mg PO HS PRN (Reason: Sleep) Discharge Orders: Discharge Order- CHF (Routine); Ordered 03/31/24 Ordered By: Noelle Oconnor/Other Patient Handouts: Aortic Stenosis, Cardiomyopathy Dc, ED Ocasio Catheter, Care Admission Data Admit Date/Time: 03/30/24 18:21 Attending Provider: Noelle Cheng Admit Provider: Noelle Cheng Primary Care Provider: Gee Wynn V. Other Providers: Stevo Espinoza; Milind Gorodn Other Interventions: Discharge Summary Assessment (RN) Last Done: 03/31/24 13:25 Coding Level of Care Code 16304 INP/OBS DISCH >30 MIN Diagnoses Acute systolic heart failure I50.21 Severe aortic stenosis I35.0 BPH (benign prostatic hyperplasia) N40.0
--- NOTE | 2024-04-01 18:48 | Electrocardiogram Report ---
Test Reason : Blood Pressure : / mmHG Vent. Rate : 106 BPM Atrial Rate : 106 BPM P-R Int : 176 ms QRS Dur : 142 ms QT Int : 384 ms P-R-T Axes : 049 -36 057 degrees QTc Int : 510 ms Sinus tachycardia with Premature atrial complexes Possible Left atrial enlargement Left axis deviation Right bundle branch block Abnormal ECG When compared with ECG of 19-MAY-2023 10:44, (unconfirmed) Premature ventricular complexes are no longer Present Vent. rate has increased BY 36 BPM Confirmed by Milind Gordon ([id number]) on 04/01/2024 6:48:17 PM Referred By: REFERRED SELF Confirmed By:Milind Gordon
== END 2024-03-31 14:12 | disposition home or self-care (01) | DRG 287 ==
LOC: ED 08:02 → EDINP 08:02 → SUATTDRO 10:51 → 2W 20:43 → 2S 03-30 15:42
PROC: CLB.CCO (2024-03-30 11:30)

== ENCOUNTER 2024-05-02 03:39 | Inpatient (IN) ==
[2024-05-02 04:35] LABS: iSTAT Creatinine 1.6 mg/dl (0.6-1.3); iSTAT Hemoglobin 11.9 g/dl (14.0-18.0); iSTAT Ionized Calcium 1.02 mmol/l (1.12-1.32)
[2024-05-02 04:49] LABS: Alanine Aminotransferase 111 U/L (7-52); Albumin Globulin Ratio 0.9 (0.9-2); Albumin Level 2.9 gm/dl (3.4-5.0); Alkaline Phosphatase 98 U/L (34-104); Anion Gap 20 (3-11); Aspartate Aminotransferase 125 U/L (13-39); BUN Creatinine Ratio 43.9 (10-20); Bilirubin,Total 1.2 mg/dl (0.2-1.0); Blood Urea Nitrogen 69 mg/dl (6-23); Calcium 8.2 mg/dl (8.6-10.3); Carbon Dioxide 18 mmol/L (21-32); Chloride 107 mmol/L (98-107); Est GFR (African American) 46.9 ml/min; Est GFR (Non-African American) 40.4 ml/min; Globulin 3.2 gm/dl (2.5-4.0); Glucose 147 mg/dl (70-99(Fasting)); Potassium 4.1 mmol/L (3.5-5.1); Sodium 145 mmol/L (136-145); Total Protein 6.1 gm/dl (6.0-8.3)
[2024-05-02] MEDS: CEFEPIME 2,000 MG/20 ML VIAL IV STA (05:06)
[2024-05-02 05:07] LABS: Troponin I High Sensitivity 265.6 pg/ml (0-20)
[2024-05-02 05:14] LABS: Basophils # (auto) 0.02 K/uL (0.00-0.20); Basophils % (auto) 0.1 %; Hematocrit (blood only) 35.4 % (42.0-52.0); Hemoglobin 11.1 g/dl (14.0-18.0); Immature Granulocytes # (auto) 0.14 K/uL (0.01-0.20); Immature Granulocytes % (auto) 0.9 %; Lymphocytes # (auto) 0.71 K/uL (1.20-3.40); Lymphocytes % (auto) 4.4 %; Mean Corpuscular Hemoglobin 29.8 pg (25.0-34.0); Mean Corpuscular Hgb Conc 31.4 g/dL (32.0-36.0); Mean Corpuscular Volume 95.2 fL (80.0-100.0); Mean Platelet Volume 12.1 fL (9.4-12.4); Monocytes # (auto) 0.57 K/uL (0.11-0.59); Monocytes % (auto) 3.5 %; Neutrophils # (auto) 14.87 K/uL (1.40-6.50); Neutrophils % (auto) 91.1 %; Nucleated RBC % (auto) 0.6 %; Platelet Count 52 K/uL (130-400); Platelet Estimate Decreased (Normal); Polychromasia 1+; RDW Coefficient of Variation 15.3 % (11.5-14.5); RDW Standard Deviation 53.1 fL (36.4-46.3); Red Blood Count 3.72 M/uL (4.70-6.10); White Blood Count 16.31 K/ul (4.8-10.8)
[2024-05-02] MEDS: NOREPINEPHRINE/D5W 4 MG/250 ML PLCT IV SCH (05:28)
[2024-05-02] MEDS ORDERED: VANCOMYCIN CONSULT ACTIVE PRN ×2 (05:49→07:38)
[2024-05-02] MEDS: MIDAZOLAM HCL 1 MG/ML 2ML VIAL ONE (05:57)
[2024-05-02] MEDS: MIDAZOLAM HCL 1 MG/ML 2ML VIAL IV STA (06:01)
--- NOTE | 2024-05-02 06:03 | History & Physical Report ---
Date of Service May 02, 2024 Assessment & Plan (1) CAD (coronary artery disease): Plan: 84yo male with history of CAD, severe and HFrEF, recent embolic CVA s/p thrombectomy on 04/03/24 presenting from [facility] with confusion. Patient appears to be septic - elevated WBC count, tachycardic, tachypneic and hypotensive on arrival. Markedly elevated lactate level of 9. Source unclear, likely pulmonary/pneumonia. Neuro: Patient with confusion, likely secondary to underlying infection and critical illness. He is awake and answering questions at present. Patient with recent embolic CVA s/p thrombectomy performed at [facility] [place] on 04/03/24. -Admit to MICU -Check CT head -Delirium prevention strategies Pulmonary: patient with bilateral airspace opacities present on CXR. Suspect PNA vs pulmonary edema/CHF. He has neutrophil predominant leukocytosis as well as elevation of BNP>4000. Presently with adequate oxygenation on HFNC. -Check Procalcitonin -Follow cultures - blood and urine sent from ER -Continue supplemental O2 as needed -No diuresis at this time as patient is currently on Levophed Cardiovascular: Patient hypotensive requiring Levophed. Presently on 1mcg/kg/min. Blood pressure has been difficult to obtain, most recently 97/62. Patient with ICA dissection noted during thrombectomy at [facility] [place] - he is on ASA and Pravastatin. Also with HFrEF - echocardiogram performed 04/09/24 with moderately reduced EF of 35-40%, diffuse hypokinesis, biatrial enlargement, severe , severe MR. Also with CAD - mild to moderate nonobstructive CAD noted on most recent cardiac catheterization from 03/30/24. Patient with elevated troponin - no acute ischemic changes present on EKG. Component of acute decompensated CHF suspected -Continue Levophed as needed - titrate for target MAP of 65 -Continue ASA and Pravastatin -Trend troponin -Check Cortisol -Continue Coumadin 2.5mg po daily - INR is pending GI: No acute issues -Keep NPO : Patient with Lagun[place] catheter in place. Minimal amount of dark urine in the bag. Has history of hematuria. Patient with JONY, Cr=1.57 from baseline of appx 1. Likely secondary to hypotension, possible sepsis and CHF. Anion gap metabolic acidosis with Gap=20, HCO3=18. Likely secondary to patient's elevated Lactate and mild JONY. VBG with pH of 7.4 performed in ER -Monitor UOP -Avoid nephrotoxic agents -Renal dosing where needed Heme: Neutrophil predominant leukocytosis, mild anemia and thrombocytopenia. Likely secondary to underlying infection -Check ddimer, fibrinogen -monitor INR -Continue Coumadin ID: Suspect PNA as source of sepsis. Leukocytosis, elevated lactate -Vancomycin and Cefepime -Follow cultures -Procalcitonin pending -Check MRSA nares -Trend Lactate -Biofire panel PENDING Endo: No active issues -Hyperglycemia protocol (2) Severe aortic stenosis: (3) Acute systolic heart failure: (4) Hyperlipidemia: (5) GERD without esophagitis: History of Present Illness Chief Complaint: unresponsive Primary Care Provider: Gee Wynn MD Vasile Thomas is an 84yo male presenting from [facility] with confusion. Patient is an 84yo male with history of CAD, severe aortic stenosis, MR, GERD and HFrEF who was recently admitted to [facility] after presenting with a left M1 embolic CVA. Patient had a thrombectomy performed by Neurosurgery on 04/03/24. 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 CVA thought to be secondary to undiagnosed atrial fibrillation. Patient was started on Coumadin for anticoagulation. Patient's hospital course was complicated by an episode of flash pulmonary edema requiring diuresis. Also with ongoing hematuria which was treated with continuous bladder irrigation. Patient was discharged to [facility] on 04/29/24. Patient confused tonight and was brought to [facility]. On arrival he was tachycardic - atrial fibrillation with HR of 140 - 160. Blood pressure was unobtainable initially. He was tachypneic. Saturation was unobtainable initially. Patient was emergently cardioverted at bedside with improvement in heart rate. He is answering some questions but is confused. Offers no complaints. ER Course: Midazolam 1mg IV Levophed gtt Cefepime 2gm Allergies Allergy/AdvReac Type Severity Reaction Status Date / Time No Known Allergies Allergy Verified 04/03/24 20:34 Home Medications Medication Instructions Recorded Confirmed Type multivitamin (Daily Multi-Vitamin 1 tab PO DAILY #30 tabs 06/06/19 04/03/24 Rx tablet) calcium carbonate 500 mg-vitamin 1 tab PO DAILY 12/07/19 04/03/24 History D3 10 mcg (400 unit) chewable tablet (Calcium 500 + D) cyanocobalamin (vitamin B-12) 1,000 mcg PO DAILY 12/07/19 04/03/24 History 1,000 mcg tablet (Vitamin B-12) dextroamphetamine-amphetamine 5 mg 5 mg PO BID 05/18/22 04/03/24 History tablet (Adderall) tamsulosin 0.4 mg capsule 0.8 mg (2 x 0.4 mg) PO DAILY #180 10/31/23 04/03/24 Rx caps hydroxyzine HCl 10 mg tablet 5 - 10 mg (0.5 - 1 x 10 mg) PO HS 03/22/24 04/03/24 Rx PRN itching #20 tabs alprazolam 0.25 mg tablet 0.25 mg PO HS PRN Sleep 03/28/24 04/03/24 History aspirin 325 mg tablet 325 mg PO DAILY 03/28/24 04/03/24 History atorvastatin 20 mg tablet 20 mg PO QAM #30 tabs 03/31/24 04/03/24 Rx carvedilol 3.125 mg tablet 3.125 mg PO BIDM #60 tabs 03/31/24 04/03/24 Rx furosemide 20 mg tablet 20 mg PO QAM #30 tabs 03/31/24 04/03/24 Rx potassium chloride 10 mEq 10 meq PO DAILY take with lasix 03/31/24 04/03/24 Rx tablet,extended release (furosemide) #30 tabs vitamin B complex 1 tab PO DAILY 04/03/24 04/03/24 History Past Med/Surg History Problem List (Updated 05/02/24 @ 06:45 by NOHELIA Bradley) Dissection of carotid artery Acute kidney injury Acute hypoxic respiratory failure Septic shock CAD (coronary artery disease) Severe aortic stenosis Acute systolic heart failure Mitral regurgitation Cardiomyopathy Urinary retention Apneic episode Sleep disturbance Hyperlipidemia Abnormal ventricular wall motion Echocardiogram abnormal Constipation Adult ADHD (Acute) Anxiety disorder (Acute) Health care maintenance BPH (benign prostatic hyperplasia) (Acute) Depression (Acute) Elevated PSA (Acute) Frequent PVCs (Acute) GERD without esophagitis (Acute) History of hyperparathyroidism (Acute) Impairment of balance (Acute) LVH (left ventricular hypertrophy) (Acute) Liver cyst (Acute) Lung nodule (Acute) Nocturia (Acute) Osteopenia (Acute) Osteoporosis (Acute) Peripheral neuropathy (Acute) Systolic murmur (Acute) Toenail deformity (Acute) Urinary frequency (Acute) Vitamin D deficiency disease (Acute) Medical History Sleep disturbance Epigastric abdominal pain Subconjunctival hemorrhage of left eye Abnormal LFTs Surgical History History of parathyroid surgery History of laparoscopic cholecystectomy H/O parathyroidectomy History of cholecystectomy Family History Sister Myocardial infarction Mother Ovarian cancer Schizophrenia Denies family history of Colon cancer Prostate cancer Breast cancer Social History Smoking Status: Unknown if ever smoked Tobacco Type: Cigarettes, Pipe and Cigars Second Hand Exposure: No; Do You Dip or Chew Tobacco: No; Hx Alcohol Use: No Hx Substance Use: No Preferred Language: Welsh Communication Ability: Effective Visual Impairment: No Limitations Hearing Ability: Normal Smoking Pipes Cleaner Required: No Beliefs That Will Affect Care: None marital status: Current Living Situation: Spouse current occupational status: retired Feels Safe at Home: Yes Childhood Exposure to Second-Hand Smoke: Yes Dental Care, Regularly: Yes Physical Activity Frequency: Does not Exercise Seatbelt Use: always Sunscreen Use: No Assistive Devices: Glasses Review of Systems Review of Systems: All systems reviewed & are unremarkable except as noted in HPI & below Physical Exam Physical Exam: General: patient ill in appearance, answers some questions and follows commands Skin: warm, dry, intact, no rashes or lesions HEENT: NC/AT, PERRL, EOMI, anicteric sclera, conjunctiva without injection, external ear normal to inspection and nontender, nares patent, moist mucus membranes, dentition intact, no oropharyngeal lesions, neck supple, trachea midline, no LAD, no thyromegaly, no JVD Heart: +S1/S2, irregularly irregular, 3/6 [place] across precordium Lungs: tachypneic, no rales/rhonchi/wheezes anteriorly Abd: +BS, soft, ND, no masses/organomegaly/ascites Ext: cool feet and hands, palpable distal pulses Neuro: patient moving all extremities Results & Data Results & Data Vital Signs (Past 12 Hours) Vital Signs Temp Pulse Pulse Resp BP BP Pulse Ox 05/02/24 05:53 89 97/62 L 100 05/02/24 05:10 36.5 C 90 26 H 101/70 05/02/24 05:00 83 30 H 122/78 05/02/24 04:46 81 05/02/24 04:42 87 40 H 90/73 L 05/02/24 04:30 80 26 H 05/02/24 04:18 131 H 36 H 100/59 L 05/02/24 04:03 129 H 34 H 87/67 L 05/02/24 03:54 140 H 32 H 90/56 L 05/02/24 03:47 133 H O2 Del Method O2 Flow Rate FiO2 05/02/24 05:53 High Flow Nasal Cannula 05/02/24 05:10 05/02/24 05:00 05/02/24 04:46 05/02/24 04:42 05/02/24 04:30 High Flow Nasal Cannula 40 100 05/02/24 04:18 05/02/24 04:03 05/02/24 03:54 05/02/24 03:47 Laboratory Results Laboratory Results WBC 16.31 K/ul (4.8-10.8) H 05/02/24 04:17 RBC 3.72 M/uL (4.70-6.10) L 05/02/24 04:17 Hgb 11.1 g/dl (14.0-18.0) L 05/02/24 04:17 POC Hgb 11.9 g/dl (14.0-18.0) L 05/02/24 04:22 Hct 35.4 % (42.0-52.0) L 05/02/24 04:17 POC Hct 35 % (42-52) L 05/02/24 04:22 MCV 95.2 fL (80.0-100.0) 05/02/24 04:17 MCH 29.8 pg (25.0-34.0) 05/02/24 04:17 MCHC 31.4 g/dL (32.0-36.0) L 05/02/24 04:17 RDW Std Deviation 53.1 fL (36.4-46.3) H 05/02/24 04:17 RDW Coeff of Renetta 15.3 % (11.5-14.5) H 05/02/24 04:17 Plt Count 52 K/uL (130-400) L 05/02/24 04:17 MPV 12.1 fL (9.4-12.4) 05/02/24 04:17 Immature Gran % (Auto) 0.9 % 05/02/24 04:17 Neut % (Auto) 91.1 % 05/02/24 04:17 Lymph % (Auto) 4.4 % 05/02/24 04:17 [place] % (Auto) 3.5 % 05/02/24 04:17 Eos % (Auto) 0.0 % 05/02/24 04:17 Baso % (Auto) 0.1 % 05/02/24 04:17 Neut # (Auto) 14.87 K/uL (1.40-6.50) H 05/02/24 04:17 Lymph # (Auto) 0.71 K/uL (1.20-3.40) L 05/02/24 04:17 [place] # (Auto) 0.57 K/uL (0.11-0.59) 05/02/24 04:17 Eos # (Auto) 0.00 K/uL (0.00-0.50) 05/02/24 04:17 Baso # (Auto) 0.02 K/uL (0.00-0.20) 05/02/24 04:17 Immature Gran # (Auto) 0.14 K/uL (0.01-0.20) 05/02/24 04:17 Absolute Nucleated RBC 0.10 K/uL (0.00-0.12) 05/02/24 04:17 Nucleated RBC % (auto) 0.6 % 05/02/24 04:17 Platelet Estimate Decreased (Normal) L 05/02/24 04:17 Polychromasia 1+ 05/02/24 04:17 PT Cancelled 05/02/24 04:17 INR Cancelled 05/02/24 04:17 POC Sodium 143 mmol/L (135-144) 05/02/24 04:22 Sodium 145 mmol/L (136-145) 05/02/24 04:17 POC Potassium 4.0 mmol/L (3.3-5.0) 05/02/24 04:22 Potassium 4.1 mmol/L (3.5-5.1) 05/02/24 04:17 POC Chloride 109 mmol/L (101-112) 05/02/24 04:22 Chloride 107 mmol/L (98-107) 05/02/24 04:17 Carbon Dioxide 18 mmol/L (21-32) L 05/02/24 04:17 POC Total CO2 19 mmol/L (24-31) L 05/02/24 04:22 Anion Gap 20 (3-11) H 05/02/24 04:17 POC Anion Gap 20.0 mmol/L (16-25) 05/02/24 04:22 POC BUN 55 mg/dl (7-18) H 05/02/24 04:22 BUN 69 mg/dl (6-23) H 05/02/24 04:17 Creatinine 1.57 mg/dl (0.6-1.4) H 05/02/24 04:17 POC Creatinine 1.6 mg/dl (0.6-1.3) H 05/02/24 04:22 Est Cr Clr Drug Dosing Not Reportable 05/02/24 04:17 Est GFR ( Amer) 46.9 ml/min 05/02/24 04:17 Est GFR (Non-Af Amer) 40.4 ml/min 05/02/24 04:17 BUN/Creatinine Ratio 43.9 (10-20) H 05/02/24 04:17 Glucose 147 mg/dl (70-99(Fasting)) H 05/02/24 04:17 POC Glucose (other) 139 mg/dl (70-99) H 05/02/24 04:22 Lactate 9.3 mmol/L (0.4-2.0) H* 05/02/24 04:17 Calcium 8.2 mg/dl (8.6-10.3) L 05/02/24 04:17 POC Ioniz Calcium Krishna 1.02 mmol/l (1.12-1.32) L 05/02/24 04:22 Total Bilirubin 1.2 mg/dl (0.2-1.0) H 05/02/24 04:17 AST 125 U/L (13-39) H 05/02/24 04:17 ALT 111 U/L (7-52) H 05/02/24 04:17 Alkaline Phosphatase 98 U/L (34-104) 05/02/24 04:17 Troponin I High Sens 265.6 pg/ml (0-20) H* 05/02/24 04:17 B-Natriuretic Peptide 4167 pg/ml (0-100) H 05/02/24 04:17 Total Protein 6.1 gm/dl (6.0-8.3) 05/02/24 04:17 Albumin 2.9 gm/dl (3.4-5.0) L 05/02/24 04:17 Globulin 3.2 gm/dl (2.5-4.0) 05/02/24 04:17 Albumin/Globulin Ratio 0.9 (0.9-2) 05/02/24 04:17 Urine Color [place] 05/02/24 05:35 Urine Appearance Turbid (Clear) A 05/02/24 05:35 Urine pH 5.0 (4.5-7.5) 05/02/24 05:35 Ur Specific [place] 1.018 (1.000-1.030) 05/02/24 05:35 Urine Protein 2+ (Negative) H 05/02/24 05:35 Urine Glucose (UA) Negative (Negative) 05/02/24 05:35 Urine Ketones Negative (Negative) 05/02/24 05:35 Urine Blood 3+ (Negative) H 05/02/24 05:35 Urine Nitrite Negative (Negative) 05/02/24 05:35 Urine Bilirubin 1+ (Negative) H 05/02/24 05:35 Urine Urobilinogen Negative (Negative) 05/02/24 05:35 Ur Leukocyte Esterase 1+ (Negative) H 05/02/24 05:35 Urine WBC (Auto) 11-20 /hpf (0-5) H 05/02/24 05:35 Urine RBC (Auto) >20 /hpf (0-2) H 05/02/24 05:35 U Hyaline Cast (Auto) >20 /lpf (0-2) H 05/02/24 05:35 U Epithel Cells (Auto) 6-10 /hpf (0-2) H 05/02/24 05:35 Urine Bacteria (Auto) None Seen (None Seen) 05/02/24 05:35 Hyaline Casts Present /lpf (None Presnt) A 05/02/24 05:35 Granular Casts Present /lpf (None Prsent) A 05/02/24 05:35 Diagnostic Findings CXR - per my interpretation - patient with bilateral airspace disease, right more than left, bilateral pleural effusions Code Status & VTE Plan VTE Prophylaxis Plan VTE Prophylaxis will be ordered: Yes PG Care Time/CCT Total # of Minutes Spent Total Time Spent with Patient: Total time spent is greater than 50% in coordination of care (as documented) at patient's floor/unit and/or counseling patient: Coding Level of Care Code 55005 INT INP/OBS CARE 375MIN Diagnoses CAD (coronary artery disease) I25.10 Severe aortic stenosis I35.0 Acute systolic heart failure I50.21 Hyperlipidemia E78.5 GERD without esophagitis K21.9
[2024-05-02 06:06] LABS: Appearance Urine Turbid (Clear); Bacteria Urine Automated None Seen (None Seen); Bilirubin Urine 1+ (Negative); Blood Urine 3+ (Negative); Cast Urine Automated >20 /lpf (0-2); Color Urine Orange; Glucose Urine UA Negative (Negative); Granular Casts Urine Present /lpf (None Prsent); Hyaline Casts Urine Present /lpf (None Presnt); Ketones Urine Negative (Negative); Leukocyte Esterase Urine 1+ (Negative); Nitrite Urine Negative (Negative); Protein Urine 2+ (Negative); RBC Urine Automated >20 /hpf (0-2); Specific Gravity Urine 1.018 (1.000-1.030); Urobilinogen Urine Negative (Negative)
[2024-05-02 06:57] LABS: Magnesium 2.7 mg/dl (1.7-2.4)
--- NOTE | 2024-05-02 06:59 | Critical Care Consultation ---
Date of Consultation May 02, 2024 Assessment & Plan (1) Septic shock: Reason Critically Ill: 84-year-old male with extensive past medical history significant for Atrial fibrillation, CHF, severe , severe mitral stenosis, and recent admission for MCA CVA at [facility] where he underwent thrombectomy and was found to have ICA dissection. Presents to the emergency department with A-fib RVR, hypotensive, and hypoxic requiring high flow nasal cannula and vasopressor support and underwent cardioversion. Neuro - Encephalopathylikely secondary to underlying sepsis. Mild elevation of BUN may be contributing. CT head currently pending. 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 Cardiac - Shocklikely mixed etiology with underlying systolic heart failure, severe and A-fib RVR on admission requiring cardioversion. Patient likely septic from pulmonary source as well. - See ID for treatment of sepsis - Random cortisol pending - TTE 04/20: Moderate to severely reduced EF, with mild concentric hypertrophy, severe valvular aortic stenosis with moderate mitral regurg and elevated RV systolic pressure 40-50. - Cardiology recommendation for TAVR consult once stable enough to proceed on last admission. - Cardioverted for A-fib RVR. Continuous monitoring on telemetry - Currently maintaining MAP greater than 65 with low-dose Levophed drip. Consider central line if increased vasopressor requirement -Careful with fluid and resuscitation given underlying CHF/hypoxic respiratory failure Respiratory - Acute hypoxic respiratory failurelikely mixed etiology in the setting of acute CHF following A-fib RVR, and possible underlying pneumonia. - CT chest pending - ABG with hypoxia, compensated metabolic acidosis - PE unlikely given systemic anticoagulation - Careful with diuresis giving shock - See ID for treatment of underlying pneumonia - Currently on high flow nasal cannula, low threshold for intubation. - Continuous O2 monitoring GI - N.p.o. for now RENAL/LYTES - AKIlikely prerenal in the setting of septic shock. - Maintain MAP greater than 65. -Trend BMPs. - Avoid nephrotoxins and renally adjust medications. Monitor - Careful with fluid resuscitation given sepsis - Foleystrict I's and O's ENDO - Is currently euglycemic. ICU hyperglycemic protocol HEME - H&H stable, monitor routine CBC ID - Sepsispatient with leukocytosis, Possible pneumonia on chest x-ray. CT chest currently pending - Elevated lactate, Pro-Barrington pending - Blood cultures and urine culture pending - BioFire, nasal MRSA pending - Continue vancomycin, cefepime, for now LINES/IV ACCESS - Peripheral IVs DVT PROPHYLAXIS - SCDs, systemic anticoagulation I have personally spent 46 minutes of critical care time in the direct management of this patient. This is a life/limb threatening event. This includes time spent evaluating patient, direct bedside care, chart review, placing orders, interpretation of diagnostic studies, discussion with consultants, patient, and family members, as well as other required patient management activities. This time is exclusive of all separately billable procedures, and teaching time and separate from and in addition to any other critical care service time. Thank you for allowing us to participate in the care of this patient. Please refer to my attending physician's documentation for any further recommendations. (2) Acute hypoxic respiratory failure: (3) Severe aortic stenosis: (4) Mitral regurgitation: (5) GERD without esophagitis: (6) Acute kidney injury: (7) Acute systolic heart failure: (8) CAD (coronary artery disease): (9) Hyperlipidemia: (10) Dissection of carotid artery: Supervising Physician Co-Signing Physician Notes I have personally evaluated and examined this patient. I agree with assessment and plan of Sukumar POZO. This note represents my care after receiving the patient in signout at 0 700. Adjusting antibiotics to Zosyn from cefepime to provide anaerobic coverage given the pneumobilia discontinuing the Flagyl. Adding doxycycline 200 mg initial dose then continuing for atypical coverage. I cannot exclude a abdominal source however I am led to believe this is predominantly a pulmonary issue. There could also be aspects of DIC. Concern for healthcare acquired as he is recently been in [facility] for a stroke as well as DIC History of Present Illness History of Present Illness Patient is a 84-year-old male with past medical history significant for severe aortic stenosis, MR, GERD, HFrEF, CAD with recent admission to [facility] for M1 embolic CVA in which he had a thrombectomy on 04/03 and was found to have ICA dissection. CVA contributed to atrial fibrillation, and he was started on Coumadin. During the hospital course he was noted to have episode of pulmonary edema requiring diuretics and ongoing hematuria with continuous bladder irrigation. He was discharged to [facility] care on 04/29. Patient presented from [facility] with respiratory distress and found to be in A-fib RVR, with hypoxic respiratory failure and hypotension. He underwent cardioversion, but remained hypotensive and hypoxic. He is now on high flow nasal cannula, and low-dose Levophed. Upon evaluation in the emergency department the patient is mildly confused but able to answer most questions appropriately. He denies any headache, dizziness, chest pain, palpitations, cough or congestion, abdominal pain, back pain, nausea or vomiting or diarrhea. He does report shortness of breath. Chest x-ray consistent with pulmonary edema, with possible underlying pneumonia. ABG showing metabolic acidosis and he did have elevated lactate. Patient now being admitted to ICU for further management at this time. Allergies Allergy/AdvReac Type Severity Reaction Status Date / Time No Known Allergies Allergy Verified 04/03/24 20:34 Home Medications Medication Instructions Recorded Confirmed Type multivitamin (Daily Multi-Vitamin 1 tab PO DAILY #30 tabs 06/06/19 04/03/24 Rx tablet) calcium carbonate 500 mg-vitamin 1 tab PO DAILY 12/07/19 04/03/24 History D3 10 mcg (400 unit) chewable tablet (Calcium 500 + D) cyanocobalamin (vitamin B-12) 1,000 mcg PO DAILY 12/07/19 04/03/24 History 1,000 mcg tablet (Vitamin B-12) dextroamphetamine-amphetamine 5 mg 5 mg PO BID 05/18/22 04/03/24 History tablet (Adderall) tamsulosin 0.4 mg capsule 0.8 mg (2 x 0.4 mg) PO DAILY #180 10/31/23 04/03/24 Rx caps hydroxyzine HCl 10 mg tablet 5 - 10 mg (0.5 - 1 x 10 mg) PO HS 03/22/24 04/03/24 Rx PRN itching #20 tabs alprazolam 0.25 mg tablet 0.25 mg PO HS PRN Sleep 03/28/24 04/03/24 History aspirin 325 mg tablet 325 mg PO DAILY 03/28/24 04/03/24 History atorvastatin 20 mg tablet 20 mg PO QAM #30 tabs 03/31/24 04/03/24 Rx carvedilol 3.125 mg tablet 3.125 mg PO BIDM #60 tabs 03/31/24 04/03/24 Rx furosemide 20 mg tablet 20 mg PO QAM #30 tabs 03/31/24 04/03/24 Rx potassium chloride 10 mEq 10 meq PO DAILY take with lasix 03/31/24 04/03/24 Rx tablet,extended release (furosemide) #30 tabs vitamin B complex 1 tab PO DAILY 04/03/24 04/03/24 History Patient History Medical History Sleep disturbance Epigastric abdominal pain Subconjunctival hemorrhage of left eye Abnormal LFTs Surgical History History of parathyroid surgery History of laparoscopic cholecystectomy H/O parathyroidectomy History of cholecystectomy Family History Sister Myocardial infarction Mother Ovarian cancer Schizophrenia Denies family history of Colon cancer Prostate cancer Breast cancer Social History Smoking Status: Former smoker Tobacco Type: Cigarettes, Pipe and Cigars Second Hand Exposure: No; Do You Dip or Chew Tobacco: No; Hx Alcohol Use: No Hx Substance Use: No Preferred Language: Frisian Communication Ability: Effective Visual Impairment: No Limitations Hearing Ability: Normal Servomechanism Assembler Required: No Beliefs That Will Affect Care: None marital status: Current Living Situation: Rehab Current Living Situation Comment: [facility] 04/03 current occupational status: retired Feels Safe at Home: Yes Childhood Exposure to Second-Hand Smoke: Yes Dental Care, Regularly: Yes Physical Activity Frequency: Does not Exercise Seatbelt Use: always Sunscreen Use: No Assistive Devices: Glasses Review of Systems Review of Systems: All systems reviewed & are unremarkable except as noted in HPI & below Physical Exam Constitutional: + frail appearing; no acute distress Eyes: PERRL, conjunctivae normal, anicteric sclerae ENMT: external ear and nose normal, oropharynx normal Neck: trachea midline, no thyromegaly Respiratory: Coarse crackles auscultated bilaterally with diminished bases bilaterally. Symmetrical chest wall movement. Tachypnea without labored breathing. Cardiovascular: Regular rate and rhythm, S1-S2 auscultated, positive murmur. +1 bilateral lower extremity edema. Gastrointestinal (Abdomen): normal bowel sounds, soft, nontender, no he patosplenomegaly Musculoskeletal: no cyanosis or clubbing, extremities motor strength 5/5 Skin: no rashes, warm and dry Neurologic: PERRL, EOMI, accommodation nl, no face palsy, no dysarthria Psychiatric: Orientation: oriented to person and cooperative; + not oriented to place and + not oriented to time Genitourinary: Indwelling Lagunas catheter present, urine cloudy and concentrated yellow Results & Data Results & Data Vital Signs (Past 12 Hours) Vital Signs Temp Pulse Pulse Resp BP BP Pulse Ox 05/02/24 05:53 89 97/62 L 100 05/02/24 05:10 36.5 C 90 26 H 101/70 05/02/24 05:00 83 30 H 122/78 05/02/24 04:46 81 05/02/24 04:42 87 40 H 90/73 L 05/02/24 04:30 80 26 H 05/02/24 04:18 131 H 36 H 100/59 L 05/02/24 04:03 129 H 34 H 87/67 L 05/02/24 03:54 140 H 32 H 90/56 L 05/02/24 03:47 133 H O2 Del Method O2 Flow Rate FiO2 05/02/24 05:53 High Flow Nasal Cannula 05/02/24 05:10 05/02/24 05:00 05/02/24 04:46 05/02/24 04:42 05/02/24 04:30 High Flow Nasal Cannula 40 100 05/02/24 04:18 05/02/24 04:03 05/02/24 03:54 05/02/24 03:47 Coding Level of Care Code 71713 CRITICAL CARE 1ST 30-74M Diagnoses Septic shock A41.9; R65.21 Acute hypoxic respiratory failure J96.01 Severe aortic stenosis I35.0 Mitral regurgitation I34.0 GERD without esophagitis K21.9 Acute kidney injury N17.9 Acute systolic heart failure I50.21 CAD (coronary artery disease) I25.10 Hyperlipidemia E78.5 Dissection of carotid artery I77.71
[2024-05-02 07:02] LABS: Phosphorus 6.4 mg/dl (2.5-4.9)
--- NOTE | 2024-05-02 07:09 | CT Scan Report ---
CT SCAN OF THE BRAIN WITHOUT IV CONTRAST CLINICAL HISTORY: Change in mental status. COMPARISON STUDY: CT of the brain dated 04/03/2024. TECHNIQUE: Unenhanced axial CT scan of the brain is performed from the vertex to the skull base. A do se lowering technique was utilized adhering to the principles of ALARA. 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 There is no hemorrhage, mass effect, or evidence of acute territ orial ischemia by CT criteria. Almendarez-white matter differentiation is preserved. No extra-axial fluid c ollection is seen. Ventricles, sulci, cisterns: Prominent secondary to involutional change. Intracranial vasculature: There is atherosclerotic calcification of the cavernous carotid arteries. Calvarium: Unremarkable. Sinuses and mastoids: The visualized paranasal sinuses are clear. The mastoid air cells are well pneu matized. Orbits: The bony orbits are grossly intact. IMPRESSION: There is no hemorrhage, mass effect, or evidence of acute territorial ischemia by CT yancy hoover. ACT 112: Negative or not required by law. Electronically signed by: Roque Wong M.D. 05/02/2024 7:07 AM
[2024-05-02 07:18] LABS: Troponin I High Sensitivity 338.4 pg/ml (0-20)
--- NOTE | 2024-05-02 07:29 | CT Scan Report ---
CT SCAN OF THE ABDOMEN AND PELVIS WITHOUT IV CONTRAST CLINICAL HISTORY: Sepsis. COMPARISON STUDY: Abdominal CT dated 04/03/2024. TECHNIQUE: CT scan of the abdomen and pelvis is performed from the lung bases to the proximal femora. Images are reviewed in the axial, sagittal, and coronal planes. IV contrast was not administered for this examination. Note that the examination is suboptimal without oral and IV contrast. There is str eak artifact from the arms which could not be elevated above the abdomen, as well as motion artifact. A dose lowering technique was utilized adhering to the principles of ALARA. FINDINGS: Lung bases: The heart is enlarged and without pericardial effusion. There are coronary artery calcifi cations. There is diminished attenuation of the cardiac blood pool was compared to the myocardium sug gesting anemia. There are small left and trace right pleural effusions. Airspace consolidation is pre sent at both lung bases. A small hiatal hernia is noted. Liver: The unenhanced liver is normal in size, contour, and attenuation. There is mild central intrah epatic biliary ductal dilatation. A multiloculated right lobe cyst measures up to 3.3 cm. Additional subcentimeter hepatic hypodensities also likely represent cysts but are too small for definitive keira acterization. There is a focus of gas within the right hepatic lobe on image #48. This could represen t trace pneumobilia versus portal venous gas. Gallbladder: Surgically absent noting clips in the gallbladder fossa. Spleen: Diminutive. Pancreas: The unenhanced pancreas is moderately atrophic and grossly unremarkable. Adrenal glands: Nonspecific thickening of the adrenal glands is similar to previous. Kidneys: The unenhanced kidneys demonstrate mild cortical atrophy and are without hydronephrosis. The re is a punctate nonobstructing left renal calculus. No ureteral stone is seen. There is no evidence of contour deforming renal mass lesion. Abdominal vasculature: The abdominal aorta is normal in course and caliber noting mild atheroscleroti c calcification. Bowel: Question gastric wall thickening. There is rectosigmoid fecal retention and moderate constipat ion. No bowel obstruction is seen. There is no pneumatosis intestinalis or mesenteric venous gas. The appendix is not visualized. Peritoneum: There is no intraperitoneal free air or abdominal ascites. There is mesenteric edema. A s mall fat-containing umbilical hernia is observed. Lymphadenopathy: None. Pelvic viscera: The prostate gland is enlarged and heterogeneous. The bladder is partially decompress ed and a Lagunas catheter. The wall is thickened/trabeculated indicating chronic outlet obstruction. Th ere is nonspecific intraluminal gas which may be related to instrumentation. There are likely tiny bl adder calculi. Skeletal structures: The skeletal structures are osteopenic. There is a severe chronic compression de formity of L2. Moderate lumbosacral spondylosis is observed. No lytic or blastic lesions are seen. Soft tissues: There is body wall edema. IMPRESSION: 1. Significantly suboptimal examination without oral or IV contrast. There is also significant streak and motion artifact. 2. Multifocal airspace consolidation is seen at both lung bases. 3. Cardiomegaly noting small left and trace right pleural effusions. 4. There is a small focus of indeterminate gas within the right hepatic lobe which could represent tr kosta pneumobilia versus portal venous gas. No pneumobilia was seen on several prior CT scans. Clinical correlation will be essential. 5. Retrosigmoid fecal retention and moderate constipation. 6. The bladder wall is significantly thickened, which may related to chronic outlet obstruction. Liset elate with urinalysis. 7. Punctate nonobstructing left renal calculus. 8. There is body wall and mesenteric edema suggesting fluid overload. 9. Question gastric wall thickening. This is not well assessed by CT. If clinically warranted this co uld be further assessed with endoscopy. 10. Additional findings as above. ACT 112: Negative or not required by law. Electronically signed by: Roque Wong M.D. 05/02/2024 7:27 AM
[2024-05-02 07:36] LABS: Prothrombin Time 69.2 Seconds (9.0-12.0)
[2024-05-02] MEDS ORDERED: ONDANSETRON INJ 2 MG/ML 2 ML VIAL IV PRN (07:38)
--- NOTE | 2024-05-02 07:39 | XRay Report ---
SINGLE VIEW CHEST CLINICAL HISTORY: Respiratory distress. Dyspnea. FINDINGS: An AP, portable, upright chest radiograph is compared to study dated 03/29/2024 and correlate d with chest CT dated 04/03/2024. The heart is enlarged. There is pulmonary vascular congestion. Multif ocal airspace consolidation is seen throughout both lungs, right greater than left. There are small p leural effusions. No pneumothorax is seen. The skeletal structures are osteopenic. The bony thorax is grossly intact. IMPRESSION: 1. Cardiomegaly with pulmonary vascular congestion. 2. Asymmetric multifocal airspace consolidation is seen throughout both lungs. This could represent p ulmonary edema, multifocal pneumonia, and/or ARDS. Clinical correlation will be required and radiogra [facility] follow-up to resolution is recommended. 3. Small pleural effusions. ACT 112: Negative or not required by law. Electronically signed by: Roque Wong M.D. 05/02/2024 7:38 AM
[2024-05-02 07:43] LABS: D Dimer > 35200 ug/L FEU (0-500); Fibrinogen < 50 mg/dl (184-400); INR 7.2 (0.9-1.1)
[2024-05-02] MEDS: VANCOMYCIN HCL 1,500 MG in SODIUM CHLORIDE 0.9% 500 ML IV ONE (07:51)
--- NOTE | 2024-05-02 07:52 | Emergency Department Note ---
Impression & Plan Atrial fibrillation with rapid ventricular response, Sepsis, Acute hypotension admit to the ICU ED Provider Note NAME: CAYDEN PEREZ AGE: 84 SEX: Male INFORMANT: EMS ED PROVIDER(S): Lynda Guzman DO CHIEF COMPLAINT: tachypnea and hypoxia PLAN: Disposition: admit to the ICU MEDICAL DECISION MAKING: this is an 84-year-old male patient who presents to us from [facility] with tachypnea and hypoxia. The patient was admitted to their facility yesterday afternoon from [facility] where the patient had been admitted for a stroke. They noticed overnight tonight the patient was having increased respiratory distress and was hypoxic. EMS was called and he was transported here. And route, the patient was noted to be in atrial fibrillation with a rapid ventricular response. I had difficulty obtaining an O2 saturation and blood pressure. Patient does have history of atrial fibrillation and takes Coumadin. Upon presentation, heart rates were in the 160s, the patient was hypothermic. We were not able to obtain an O2 saturation. Initial blood pressure readings readings were mid 90s systolic. IV lock was initiated and labs were drawn. Patient was placed on supplemental oxygen and multiple attempts were made at obtaining an oxygen saturation with no success. The patient became more tachypneic and the patient was placed on high flow oxygen. The patient became more hypotensive and required synchronized cardioversion. Chest x-ray revealed evidence of pulmonary vascular congestion along with multifocal airspace opacity. This in conjunction with lactate greater than 9 raise concern for severe sepsis and septic shock. Patient was treated with IV antibiotics and placed on Levophed for pressure support. I did discuss the case by phone with the patient's and made her aware of his critical condition. She did present to the emergency department I spoke with her in the room. Patient had a white count of 16.3. H&H were stable. The patient had significant thrombocytopenia with a platelet count of 5052. INR was up to 5.2. BUN of 75 and creatinine of 1.5. BNP of 4167. ABG revealed a pH of 7.5 pCO2 of 21 pO2 of 57 and bicarb of 17. Urinalysis revealed 3+ blood, 1+ leukocyte esterase and 11-20 white blood cells. This is somewhat concerning for infection. I discussed the case with the [facility] Hospitalist as well as the critical care team and the patient was transferred over the ICU. The patient did not receive IV crystalloid therapy for sepsis as he had significant pulmonary vascular congestion and fluid overload. His blood pressure was supported with IV Levophed. patient will be admitted to the ICU Care/management discussed with: community marketing manager, the patient's , Ernesto V[facility] Hospitalist, critical care medicine Triage Nursing notes: reviewed and agree with them. Vital Signs: reviewed and remarkable for tachypnea and hypotension Additional History obtained from: EMS Chronic Medical/Social Conditions affecting care: recent left MCA stroke; A-fib Prior/ Outside/ External records reviewed: I reviewed discharge summary from [facility] Differential Diagnosis: A-fib with RVR, STEMI, CHF, pneumonia, sepsis ECG: As interpreted by ga-atrial fibrillation with rapid ventricular response a rate of 131. There is no obvious signs of ischemia repeat ECG: As interpreted by ga-normal sinus rhythm at a rate of 85 with no obvious ischemia. There are PVCs. Portable chest x-ray: As per my independent interpretation-pulmonary vascular congestion with cardiomegaly; multifocal airspace opacities bilaterally PAST MEDICAL HISTORY: See Below, PAST SURGICAL HISTORY: See Below, SOCIAL HISTORY: See Below, HOME MEDICATIONS: see list ALLERGIES: none VITALS: See Below PHYSICAL EXAMINATION: HEENT: Head - normocephalic and atraumatic. Pupils are equal, round, and reactive to light. Extraocular eye muscles are intact, and sclera are anicteric. Nose - moist nasal mucosa without discharge. Mouth - moist buccal mucosa. Oropharynx is nonerythematous and there is no tonsillar exudate or edema noted. Neck: Supple; no JVD, nuchal rigidity, cervical lymphadenopathy, or auscultated bruits. Heart: irregularly irregular rhythm with a tachycardic rate. There is a normal S1 and S2 with no murmurs, clicks, or gallops appreciated. Lungs: Clear to auscultation bilaterally with no wheezes, rales, or rhonchi. Abdomen: Soft, completely nontender, nondistended, with good bowel sounds. There are no palpable pulsatile masses or hepatosplenomegaly. There is no guarding, rigidity, or rebound noted. Extremities: trace pitting edema with poor perfusion Skin: warm and dry with good turgor and no rashes. emergency department treatment: satellite project site monitor, supplemental oxygen, high flow oxygen, IV Versed, IV cefepime emergency department course: The patient was evaluated in room C-3. A complete history and physical was performed. Laboratory studies were drawn as above. Patient was placed on nasal cannula. He was switched to high flow nasal cannula. and orders placed for continuous cardiac monitoring. The patient was in A-fib with rapid ventricular response at a rate of 168. A twelve-lead EKG was obtained. Patient became increasingly hypotensive and decision was made for synchronized cardioversion. All the appropriate equipment and personnel were assembled. The patient was medicated with 1 mg of IV Versed. He was cardioverted with 100 J. This produced a normal sinus rhythm at a rate of 85. Portable chest x-ray was performed. ABG was obtained. Repeat EKG was performed. Lactate returned at 9. The patient was dosed with IV cefepime. Patient remained hypotensive and was thought to be septic. He was placed on IV Levophed. I discussed the case with the patient's . A urine specimen and blood cultures were obtained. I discussed the case with the [facility] Hospitalist as well as the critical care team. I have personally spent greater than 120 minutes of critical care time in the direct management of this patient. This includes bedside care, interpretation of diagnostic studies, and testing, discussion with consultants, patient, and family members, and other required patient management activities. This 120 minutes is in excess of all separately billable procedures. Past Med/Surg History Problem List (Updated 05/02/24 @ 14:49 by Janelle Ballesteros) Pneumonia (Acute) Encephalopathy (Acute) Acute hypotension (Acute) Sepsis (Acute) Atrial fibrillation with rapid ventricular response (Acute) Dissection of carotid artery Acute kidney injury Acute hypoxic respiratory failure Septic shock CAD (coronary artery disease) Severe aortic stenosis Acute systolic heart failure Mitral regurgitation Cardiomyopathy Urinary retention Apneic episode Sleep disturbance Hyperlipidemia Abnormal ventricular wall motion Echocardiogram abnormal Constipation Adult ADHD (Acute) Anxiety disorder (Acute) Health care maintenance BPH (benign prostatic hyperplasia) (Acute) Depression (Acute) Elevated PSA (Acute) Frequent PVCs (Acute) GERD without esophagitis (Acute) History of hyperparathyroidism (Acute) Impairment of balance (Acute) LVH (left ventricular hypertrophy) (Acute) Liver cyst (Acute) Lung nodule (Acute) Nocturia (Acute) Osteopenia (Acute) Osteoporosis (Acute) Peripheral neuropathy (Acute) Systolic murmur (Acute) Toenail deformity (Acute) Urinary frequency (Acute) Vitamin D deficiency disease (Acute) Medical History Sleep disturbance Epigastric abdominal pain Subconjunctival hemorrhage of left eye Abnormal LFTs Surgical History History of parathyroid surgery History of laparoscopic cholecystectomy H/O parathyroidectomy History of cholecystectomy Family History Sister Myocardial infarction Mother Ovarian cancer Schizophrenia Denies family history of Colon cancer Prostate cancer Breast cancer Social History Smoking Status: Former smoker Tobacco Type: Cigarettes, Pipe and Cigars Second Hand Exposure: No; Do You Dip or Chew Tobacco: No; Hx Alcohol Use: No Hx Substance Use: No Preferred Language: Bolivian Communication Ability: Effective Visual Impairment: No Limitations Hearing Ability: Normal Broker Required: No Beliefs That Will Affect Care: None marital status: Current Living Situation: Rehab Current Living Situation Comment: [facility] 04/03 current occupational status: retired Feels Safe at Home: Yes Childhood Exposure to Second-Hand Smoke: Yes Dental Care, Regularly: Yes Physical Activity Frequency: Does not Exercise Seatbelt Use: always Sunscreen Use: No Assistive Devices: Glasses and Walker Allergies Allergies Allergy/AdvReac Type Severity Reaction Status Date / Time No Known Allergies Allergy Verified 04/03/24 20:34 Home Meds Home Medications Medication Instructions Recorded Confirmed calcium carbonate 500 mg-vitamin 1 tab PO DAILY 12/07/19 04/03/24 D3 10 mcg (400 unit) chewable tablet (Calcium 500 + D) cyanocobalamin (vitamin B-12) 1,000 mcg PO DAILY 12/07/19 04/03/24 1,000 mcg tablet (Vitamin B-12) dextroamphetamine-amphetamine 5 mg 5 mg PO BID 05/18/22 04/03/24 tablet (Adderall) alprazolam 0.25 mg tablet 0.25 mg PO HS PRN Sleep 03/28/24 04/03/24 aspirin 325 mg tablet 325 mg PO DAILY 03/28/24 04/03/24 vitamin B complex 1 tab PO DAILY 04/03/24 04/03/24 Previous Rx's Medication Instructions Recorded multivitamin (Daily Multi-Vitamin 1 tab PO DAILY #30 tabs 06/06/19 tablet) tamsulosin 0.4 mg capsule 0.8 mg (2 x 0.4 mg) PO DAILY #180 10/31/23 caps hydroxyzine HCl 10 mg tablet 5 - 10 mg (0.5 - 1 x 10 mg) PO HS 03/22/24 PRN itching #20 tabs atorvastatin 20 mg tablet 20 mg PO QAM #30 tabs 03/31/24 carvedilol 3.125 mg tablet 3.125 mg PO BIDM #60 tabs 03/31/24 furosemide 20 mg tablet 20 mg PO QAM #30 tabs 03/31/24 potassium chloride 10 mEq 10 meq PO DAILY take with lasix 03/31/24 tablet,extended release (furosemide) #30 tabs Results & Data (ED) Vital Signs Vital Signs - 24 hr 05/02/24 03:47 05/02/24 03:54 05/02/24 04:03 Temperature Temperature Source Pulse Rate 133 H 140 H 129 H Pulse Rate [Apical] Pulse Rhythm Irregular Pulse Rhythm [Apical] Respiratory Rate 32 H 34 H Respiratory Effort / Characteristics Respiratory Depth Respiratory Pattern Rapid/Deep Blood Pressure 90/56 L 87/67 L Blood Pressure [Right Arm] Blood Pressure Mean 67 72 Blood Pressure Mean [Right Arm] Pulse Oximetry Oxygen Delivery Method Oxygen Flow Rate Fraction of Inspired Oxygen Sepsis Recent Fever Within 48 Hours No Sepsis New/Unexplained Change in Mental Status Yes Sepsis Action Taken by Nursing Physician Notified 05/02/24 04:18 05/02/24 04:30 05/02/24 04:42 Temperature Temperature Source Pulse Rate 131 H 87 Pulse Rate [Apical] 80 Pulse Rhythm Pulse Rhythm [Apical] Respiratory Rate 36 H 26 H 40 H Respiratory Effort / Characteristics Spontaneous Accessory Muscle Use Respiratory Depth Respiratory Pattern Blood Pressure 100/59 L 90/73 L Blood Pressure [Right Arm] Blood Pressure Mean 72 78 Blood Pressure Mean [Right Arm] Pulse Oximetry Oxygen Delivery Method High Flow Nasal Cannula Oxygen Flow Rate 40 Fraction of Inspired Oxygen 100 Sepsis Recent Fever Within 48 Hours Sepsis New/Unexplained Change in Mental Status Sepsis Action Taken by Nursing 05/02/24 04:46 05/02/24 05:00 05/02/24 05:10 Temperature 36.5 C Temperature Source Rectal Pulse Rate 81 83 Pulse Rate [Apical] 90 Pulse Rhythm Pulse Rhythm [Apical] Respiratory Rate 30 H 26 H Respiratory Effort / Characteristics Respiratory Depth Normal Respiratory Pattern Blood Pressure 122/78 Blood Pressure [Right Arm] 101/70 Blood Pressure Mean 92 Blood Pressure Mean [Right Arm] 80 Pulse Oximetry Oxygen Delivery Method Oxygen Flow Rate Fraction of Inspired Oxygen Sepsis Recent Fever Within 48 Hours Sepsis New/Unexplained Change in Mental Status Sepsis Action Taken by Nursing 05/02/24 05:53 Temperature Temperature Source Pulse Rate Pulse Rate [Apical] 89 Pulse Rhythm Pulse Rhythm [Apical] Irregular Respiratory Rate Respiratory Effort / Characteristics Respiratory Depth Respiratory Pattern Blood Pressure Blood Pressure [Right Arm] 97/62 L Blood Pressure Mean Blood Pressure Mean [Right Arm] 73 Pulse Oximetry 100 Oxygen Delivery Method High Flow Nasal Cannula Oxygen Flow Rate Fraction of Inspired Oxygen Sepsis Recent Fever Within 48 Hours Sepsis New/Unexplained Change in Mental Status Sepsis Action Taken by Nursing Laboratory Data 05/02/24 04:17 05/02/24 11:55 Lab Results 05/02/24 05/02/24 05/02/24 Range/Units 04:17 04:21 04:22 WBC 16.31 H (4.8-10.8) K/ul RBC 3.72 L (4.70-6.10) M/uL Hgb 11.1 L (14.0-18.0) g/dl POC Hgb 12.2 L 11.9 L (14.0-18.0) g/dl Hct 35.4 L (42.0-52.0) % POC Hct 36 L 35 L (42-52) % MCV 95.2 (80.0-100.0) fL MCH 29.8 (25.0-34.0) pg MCHC 31.4 L (32.0-36.0) g/dL RDW Std Deviation 53.1 H (36.4-46.3) fL RDW Coeff of Renetta 15.3 H (11.5-14.5) % Plt Count 52 L (130-400) K/uL MPV 12.1 (9.4-12.4) fL Immature Gran % (Auto) 0.9 % Neut % (Auto) 91.1 % Lymph % (Auto) 4.4 % [place] % (Auto) 3.5 % Eos % (Auto) 0.0 % Baso % (Auto) 0.1 % Neut # (Auto) 14.87 H (1.40-6.50) K/uL Lymph # (Auto) 0.71 L (1.20-3.40) K/uL [place] # (Auto) 0.57 (0.11-0.59) K/uL Eos # (Auto) 0.00 (0.00-0.50) K/uL Baso # (Auto) 0.02 (0.00-0.20) K/uL Immature Gran # (Auto) 0.14 (0.01-0.20) K/uL Absolute Nucleated RBC 0.10 (0.00-0.12) K/uL Nucleated RBC % (auto) 0.6 % Platelet Estimate Decreased L (Normal) Polychromasia 1+ Peripher Smr Path Cons PT Cancelled INR Cancelled POC pH 7.50 H (7.35-7.45) POC pCO2 21 L (35-46) mmHg POC pO2 57 L (80-95) mmHg POC HCO3 17 L (19-24) sarah/L POC Total CO2 17 L 19 L (24-31) mmol/L POC Base Excess -7.0 (-9-1.8) sarah/L POC ABG O2 Sat 92.0 (90-95) % POC Sodium 137 143 (135-144) mmol/L Sodium 145 (136-145) mmol/L POC Potassium > 9.0 H* 4.0 (3.3-5.0) mmol/L Potassium 4.1 (3.5-5.1) mmol/L POC Chloride 109 (101-112) mmol/L Chloride 107 (98-107) mmol/L Carbon Dioxide 18 L (21-32) mmol/L Anion Gap 20 H (3-11) POC Anion Gap 20.0 (16-25) mmol/L POC BUN 55 H (7-18) mg/dl BUN 69 H (6-23) mg/dl Creatinine 1.57 H (0.6-1.4) mg/dl POC Creatinine 1.6 H (0.6-1.3) mg/dl Est Cr Clr Drug Dosing Not Reportable Est GFR ( Amer) 46.9 ml/min Est GFR (Non-Af Amer) 40.4 ml/min BUN/Creatinine Ratio 43.9 H (10-20) Glucose 147 H (70-99(Fasting)) mg/dl POC Glucose (other) 139 H (70-99) mg/dl Lactate 9.3 H* (0.4-2.0) mmol/L Calcium 8.2 L (8.6-10.3) mg/dl POC Ioniz Calcium Krishna 1.02 L (1.12-1.32) mmol/l Total Bilirubin 1.2 H (0.2-1.0) mg/dl AST 125 H (13-39) U/L ALT 111 H (7-52) U/L Alkaline Phosphatase 98 (34-104) U/L Troponin I High Sens 265.6 H* (0-20) pg/ml B-Natriuretic Peptide 4167 H (0-100) pg/ml Total Protein 6.1 (6.0-8.3) gm/dl Albumin 2.9 L (3.4-5.0) gm/dl Globulin 3.2 (2.5-4.0) gm/dl Albumin/Globulin Ratio 0.9 (0.9-2) Urine Color Urine Appearance (Clear) Urine pH (4.5-7.5) Ur Specific Knott (1.000-1.030) Urine Protein (Negative) Urine Glucose (UA) (Negative) Urine Ketones (Negative) Urine Blood (Negative) Urine Nitrite (Negative) Urine Bilirubin (Negative) Urine Urobilinogen (Negative) Ur Leukocyte Esterase (Negative) Urine WBC (Auto) (0-5) /hpf Urine RBC (Auto) (0-2) /hpf U Hyaline Cast (Auto) (0-2) /lpf U Epithel Cells (Auto) (0-2) /hpf Urine Bacteria (Auto) (None Seen) Hyaline Casts (None Presnt) /lpf Granular Casts (None Prsent) /lpf 05/02/24 Range/Units 05:35 WBC (4.8-10.8) K/ul RBC (4.70-6.10) M/uL Hgb (14.0-18.0) g/dl POC Hgb (14.0-18.0) g/dl Hct (42.0-52.0) % POC Hct (42-52) % MCV (80.0-100.0) fL MCH (25.0-34.0) pg MCHC (32.0-36.0) g/dL RDW Std Deviation (36.4-46.3) fL RDW Coeff of Renetta (11.5-14.5) % Plt Count (130-400) K/uL MPV (9.4-12.4) fL Immature Gran % (Auto) % Neut % (Auto) % Lymph % (Auto) % [place] % (Auto) % Eos % (Auto) % Baso % (Auto) % Neut # (Auto) (1.40-6.50) K/uL Lymph # (Auto) (1.20-3.40) K/uL [place] # (Auto) (0.11-0.59) K/uL Eos # (Auto) (0.00-0.50) K/uL Baso # (Auto) (0.00-0.20) K/uL Immature Gran # (Auto) (0.01-0.20) K/uL Absolute Nucleated RBC (0.00-0.12) K/uL Nucleated RBC % (auto) % Platelet Estimate (Normal) Polychromasia Peripher Smr Path Cons PT INR POC pH (7.35-7.45) POC pCO2 (35-46) mmHg POC pO2 (80-95) mmHg POC HCO3 (19-24) sarah/L POC Total CO2 (24-31) mmol/L POC Base Excess (-9-1.8) sarah/L POC ABG O2 Sat (90-95) % POC Sodium (135-144) mmol/L Sodium (136-145) mmol/L POC Potassium (3.3-5.0) mmol/L Potassium (3.5-5.1) mmol/L POC Chloride (101-112) mmol/L Chloride (98-107) mmol/L Carbon Dioxide (21-32) mmol/L Anion Gap (3-11) POC Anion Gap (16-25) mmol/L POC BUN (7-18) mg/dl BUN (6-23) mg/dl Creatinine (0.6-1.4) mg/dl POC Creatinine (0.6-1.3) mg/dl Est Cr Clr Drug Dosing Est GFR ( Amer) ml/min Est GFR (Non-Af Amer) ml/min BUN/Creatinine Ratio (10-20) Glucose (70-99(Fasting)) mg/dl POC Glucose (other) (70-99) mg/dl Lactate (0.4-2.0) mmol/L Calcium (8.6-10.3) mg/dl POC Ioniz Calcium Krishna (1.12-1.32) mmol/l Total Bilirubin (0.2-1.0) mg/dl AST (13-39) U/L ALT (7-52) U/L Alkaline Phosphatase (34-104) U/L Troponin I High Sens (0-20) pg/ml B-Natriuretic Peptide (0-100) pg/ml Total Protein (6.0-8.3) gm/dl Albumin (3.4-5.0) gm/dl Globulin (2.5-4.0) gm/dl Albumin/Globulin Ratio (0.9-2) Urine Color [place] Urine Appearance Turbid A (Clear) Urine pH 5.0 (4.5-7.5) Ur Specific Knott 1.018 (1.000-1.030) Urine Protein 2+ H (Negative) Urine Glucose (UA) Negative (Negative) Urine Ketones Negative (Negative) Urine Blood 3+ H (Negative) Urine Nitrite Negative (Negative) Urine Bilirubin 1+ H (Negative) Urine Urobilinogen Negative (Negative) Ur Leukocyte Esterase 1+ H (Negative) Urine WBC (Auto) 11-20 H (0-5) /hpf Urine RBC (Auto) >20 H (0-2) /hpf U Hyaline Cast (Auto) >20 H (0-2) /lpf U Epithel Cells (Auto) 6-10 H (0-2) /hpf Urine Bacteria (Auto) None Seen (None Seen) Hyaline Casts Present A (None Presnt) /lpf Granular Casts Present A (None Prsent) /lpf Administered Medications Aspirin (Aspirin 81 Mg Ectab) 81 mg PO DAILY [facility] Stop: 06/01/24 08:59 Last Admin: 05/02/24 10:03 Dose: Not Given Documented By: CAROLYN Norepinephrine Bitartrate (Levophed/D5w) 4 mg in 250 mls @ 22.5 mls/hr IV .Q11H7M [facility]; Protocol Stop: 06/01/24 05:29 Last Admin: 05/02/24 15:00 Dose: 0.08 mcg/kg/min, 22.5 mls/hr Documented By: CAROLYN Co-signed By: CHAZ Titration: 05/02/24 14:34 Dose: Infused Documented By: CAROLYN Co-signed By: CHAZ Titration: 05/02/24 05:51 Dose: 0.1 mcg/kg/min, 28.1 mls/hr Documented By: Admin: 05/02/24 05:28 Dose: 0.05 mcg/kg/min, 14.1 mls/hr Documented By: CHRIS Co-signed By: FLEX Thiamine HCl 500 mg/ Sodium (Chloride) 55 mls @ 210 mls/hr IV Q8H [facility] Stop: 05/03/24 02:16 Last Infusion: 05/02/24 11:15 Dose: Infused Documented By: Admin: 05/02/24 10:59 Dose: 210 mls/hr Documented By: CAROLYN Pantoprazole Sodium 40 mg/ (Syringe) 10 mls @ 5 mls/min IV DAILY@1100 [facility] Stop: 06/01/24 10:59 Last Admin: 05/02/24 11:00 Dose: 5 mls/min Documented By: CAROLYN Miscellaneous (Icu Protocol For Hyperglycemia) 1 each N/A ACHS [facility] Stop: 05/04/24 07:37 Last Admin: 05/02/24 12:33 Dose: Not Given Documented By: Admin: 05/02/24 10:03 Dose: Not Given Documented By: CAROLYN Discontinued Medications Cefepime HCl (Maxipime) 2,000 mg in 20 mls @ 5 mls/min IV NOW STA; Protocol Stop: 05/02/24 04:52 Last Admin: 05/02/24 05:06 Dose: 5 mls/min Documented By: SHANTANU Vancomycin HCl 1,500 mg/ (Sodium Chloride) 530 mls @ 200 mls/hr IV NOW ONE Stop: 05/02/24 08:27 Last Infusion: 05/02/24 10:30 Dose: Infused Documented By: Admin: 05/02/24 07:51 Dose: 200 mls/hr Documented By: CAROLYN Metronidazole (Flagyl) 500 mg in 100 mls @ 100 mls/hr IV Q8H [facility]; Protocol Stop: 05/12/24 07:59 Last Infusion: 05/02/24 09:42 Dose: Infused Documented By: Admin: 05/02/24 08:42 Dose: 100 mls/hr Documented By: CAROLYN Calcium Gluconate () 1,000 mg in 60 mls @ 240 mls/hr IV NOW STA Stop: 05/02/24 07:52 Last Infusion: 05/02/24 08:10 Dose: Infused Documented By: Admin: 05/02/24 07:55 Dose: 240 mls/hr Documented By: CAROLYN Piperacillin Sod/Tazobactam (Sod 4.5 gm/ Dextrose) 100 mls @ 200 mls/hr IV NOW ONE; Protocol Stop: 05/02/24 10:29 Last Infusion: 05/02/24 11:28 Dose: Infused Documented By: Admin: 05/02/24 10:58 Dose: 200 mls/hr Documented By: CAROLYN Doxycycline Hyclate 100 mg/ (Dextrose) 100 mls @ 50 mls/hr IV Q2H [facility] Stop: 05/02/24 13:59 Last Infusion: 05/02/24 14:57 Dose: Infused Documented By: Admin: 05/02/24 12:57 Dose: 50 mls/hr Documented By: Infusion: 05/02/24 12:57 Dose: Infused Documented By: Admin: 05/02/24 10:59 Dose: 50 mls/hr Documented By: CAROLYN Midazolam HCl (Midazolam Hcl 1 Mg/Ml 2ml Vial) Confirm Administered Dose 2 mg .ROUTE .STK-MED ONE Stop: 05/02/24 04:26 Last Admin: 05/02/24 05:57 Dose: 1 mg Documented By: FLEX Midazolam HCl (Midazolam Hcl 1 Mg/Ml 2ml Vial) 1 mg IV NOW STA Stop: 05/02/24 05:58 Last Admin: 05/02/24 06:01 Dose: Not Given Documented By: HB Miscellaneous (Stat Iv Infusion Titration Per Protocol) 1 each N/A NOW STA Stop: 05/02/24 05:25 Last Admin: 05/02/24 13:22 Dose: Not Given Documented By: ES Miscellaneous (Patient's Height &/Or Weight Needed) 1 each N/A NOW STA Stop: 05/02/24 05:56 Last Admin: 05/02/24 07:53 Dose: 1 each Documented By: CAROLYN Imaging Data Radiologist's Impression: Chest X-Ray 05/02/24 04:04 SINGLE VIEW CHEST CLINICAL HISTORY: Respiratory distress. Dyspnea. FINDINGS: An AP, portable, upright chest radiograph is compared to study dated 03/29/2024 and correlated with chest CT dated 04/03/2024. The heart is enlarged. There is pulmonary vascular congestion. Multifocal airspace consolidation is seen throughout both lungs, right greater than left. There are small pleural effusions. No pneumothorax is seen. The skeletal structures are osteopenic. The bony thorax is grossly intact. IMPRESSION: 1. Cardiomegaly with pulmonary vascular congestion. 2. Asymmetric multifocal airspace consolidation is seen throughout both lungs. This could represent pulmonary edema, multifocal pneumonia, and/or ARDS. Clinical correlation will be required and radiographic follow-up to resolution is recommended. 3. Small pleural effusions. ACT 112: Negative or not required by law. Electronically signed by: Roque Wong M.D. 05/02/2024 7:38 AM Discharge Plan Visit Data Chief Complaint: Altered Mental Status Stated Complaint: RAPID AFIB, POOR PERFUSION, ALTERED ED Provider: Lynda Guzman Discharge Problem: Atrial fibrillation with rapid ventricular response, Sepsis, Acute hypotension Patient Disposition: Admitted As Inpatient Discharge Instructions Interventions: ED Discharge Assessment Last Done: 05/02/24 07:16
[2024-05-02] MEDS: Patient's HEIGHT &/or WEIGHT Needed STA (07:53)
[2024-05-02 07:55] LABS: Adenovirus PCR Not Detected (NotDetected); Bordetella parapertussis PCR Not Detected (NotDetected); Bordetella pertussis PCR Not Detected (NotDetected); Chlamydia pneumoniae PCR Not Detected (NotDetected); Coronavirus 229E PCR Not Detected (NotDetected); Coronavirus CoV-2 (COVID19)PCR Not Detected (NotDetected); Coronavirus HKU1 PCR Not Detected (NotDetected); Coronavirus NL63 PCR Not Detected (NotDetected); Coronavirus OC43PCR Not Detected (NotDetected); Human Metapneumovirus PCR Not Detected (NotDetected); Influenza A PCR Not Detected (NotDetected); Influenza B PCR Not Detected (NotDetected); Mycoplasma pneumoniae PCR Not Detected (NotDetected); Parainfluenza Virus 1 PCR Not Detected (NotDetected); Parainfluenza Virus 2 PCR Not Detected (NotDetected); Parainfluenza Virus 3 PCR Not Detected (NotDetected); Parainfluenza Virus 4 PCR Not Detected (NotDetected); Respiratory Syncytial VirusPCR Not Detected (NotDetected); Rhinovirus/Enterovirus PCR Not Detected (NotDetected)
[2024-05-02] MEDS: CALCIUM GLUCONATE 1,000 MG/60 ML BAG IV STA (07:55)
--- NOTE | 2024-05-02 08:13 | Pharmacy Report ---
Pharmacy PK ABX Note - Date of Service May 02, 2024 - Assessment and Plan Assessment 84 year old M receiving vancomycin and cefepime empirically. Pertinent microbiologic data includes:MRSA Nasal Swab, urine and bcx pending. WBC and lactic acid elevated, procalcitonin is pending. Day # 1 of antimicrobial therapy. Plan Vancomycin * Loading dose: 1500 mg IV x 1 * Maintenance dose: 1000 mg IV every 24 hours * Regimen is predicted to achieve target AUC/EDIN of 400-600 mg/L.hr * Level will be ordered if therapy continues past current duration of 48 hours Pharmacy will continue to follow and will adjust dose/frequency as necessary. Thank you. Pharmacy has transitioned to AUC monitoring for vancomycin. AUC/EDIN is the preferred PK/PD target and is associated with decreased risk of nephrotoxicity compared to traditional trough targets.
--- NOTE | 2024-05-02 08:24 | CT Scan Report ---
CT chest diagnostic wo con CT DOSE: 2306.58 mGy.cm HISTORY: Hypoxic resp failure TECHNIQUE: Multiaxial CT images of the chest were performed without contrast. A dose lowering techni que was utilized adhering to the principles of ALARA. COMPARISON: Chest CT 04/03/2024. FINDINGS: There is an old, healed midsternal fracture. No acute fractures within the chest. The centr al airways are patent. No pneumothorax. The abdominal structures will be reported separately on the day abdomen and pelvis CT. Trace right and small left pleural effusions are again noted. Moderate body wall edema. Surgical clips adjacent to the left thyroid lobe. Normal caliber esophagus. The hea rt remains enlarged. Decreased attenuation within the blood pool suggestive of underlying anemia. Nor mal caliber thoracic aorta. Moderate coronary artery calcifications. No mediastinal or hilar lymphade nopathy. Punctate focus of gas in the right hepatic lobe. Multifocal bilateral airspace opacities and interstitial thickening seen throughout the lungs. This has progressed in the interval. This could r epresent multifocal pneumonia with superimposed pulmonary edema. Irregular 12 mm right upper lobe air space opacity seen on the prior study is likely obscured by the airspace opacities. IMPRESSION: 1. Interval progression of the multifocal bilateral airspace opacities and interstitial thickening. T his may represent a pneumonia with superimposed pulmonary edema. 2. Trace right and small left pleural effusions. 3. Cardiomegaly. 4. The irregular 12 mm density within the right upper lobe on the prior chest CT is likely obscured b y the airspace opacities. Therefore, [address] follow-up recommended for further evaluation of this possible pulmonary lesion. 5. Please refer to the same day abdomen and pelvis CT for further evaluation of the abdominal structu res including the punctate focus of gas within the right hepatic lobe. ACT 112: Negative or not required by law. Electronically signed by: Sixto Potter M.D. 05/02/2024 8:23 AM
[2024-05-02] MEDS: metroNIDAZOLE 500 MG/100 ML BAG IV SCH (08:42)
[2024-05-02] MEDS: ICU Protocol for HYPERglycemia SCH (10:03)
[2024-05-02] MEDS: ASPIRIN 81 MG ECTAB PO SCH (10:03)
[2024-05-02 10:38] LABS: iSTAT Arterial Blood Gas HCO3 17 meg/L (19-24); iSTAT Arterial Blood Gas pCO2 21 mmHg (35-46); iSTAT Arterial Blood Gas pO2 57 mmHg (80-95); iSTAT Carbon Dioxide 17 mmol/L (24-31); iSTAT Hematocrit 36 % (42-52); iSTAT Hemoglobin 12.2 g/dl (14.0-18.0); iSTAT Potassium > 9.0 mmol/L (3.3-5.0); iSTAT Sodium 137 mmol/L (135-144)
[2024-05-02] MEDS: PIPER/TAZO 4.5g in D5W MINI-B 100 ML IV ONE (10:58)
[2024-05-02] MEDS: THIAMINE HCL 500 MG in SODIUM CHLORIDE 0.9% 50 ML IV SCH (10:59)
[2024-05-02] MEDS: DOXYCYCLINE HYCLATE 100 MG in D5W MINI-B (NOW) IV SCH (10:59)
[2024-05-02] MEDS: PANTOprazole 40 MG in SYRINGE DAILY IV SCH (11:00)
[2024-05-02 12:37] LABS: Albumin Level 2.7 gm/dl (3.4-5.0); BUN Creatinine Ratio 48.7 (10-20); Bilirubin Direct 0.4 mg/dl (0-0.2); Calcium 8.1 mg/dl (8.6-10.3); Creatinine Clr Calc Pharmacy 36.8 ml/min; Est GFR (Non-African American) 41.4 ml/min; Potassium 3.8 mmol/L (3.5-5.1); Total Protein 5.4 gm/dl (6.0-8.3)
[2024-05-02 13:02] LABS: Partial Thromboplastin Ratio 1.7; Partial Thromboplastin Time 45 Seconds (21-31)
[2024-05-02 13:05] LABS: Prothrombin Time 51.7 Seconds (9.0-12.0)
[2024-05-02 13:08] LABS: INR 5.2 (0.9-1.1)
[2024-05-02 13:09] LABS: Fibrinogen < 50 mg/dl (184-400)
[2024-05-02] MEDS: STAT IV Infusion **Titration per Protocol STA (13:22)
--- OUTSIDE RECORDS SUMMARY | 2024-05-02 13:35 | External Medical Summary | Continuity of Care Document ---
Author Name Unknown Organization [facility] [address] Address [address] [place], [place] [id number] Care Team Providers Care Embossing Clerk Name Role Phone Gee Da Silva V Primary Care Ph ysician [phone] Encounter [facility] [id number] Date(s): 04/03/24 - 04/03/24 [facility] [address] [place], [place] [id number] [place] Discharge Disposition: Home or Self Care Attending Physician: MD Arnulfo, Inocencio Noe Referring Physician: MD Tierra, Ben Sandoval Allergies, Adverse Reactions, Alerts Substance Reaction Severity Status Unable to Obtain Allergy Act carin Medications ALPRAZolam 0.25 mg oral tablet Start: 04/04/24 5:18:00 EDT, 1 tab, PO, qhs, PRN: insomnia Start Date: 04/04/24 Status: Ordered amphetamine-dextroamphetamine 5 mg oral tablet take 1 tablet by mouth every morning and 1 tablet by mouth AT NOON Start Date: 04/04/24 Status: Ordered aspirin 325 mg oral delayed release tablet Start: 04/04/24 5:18:00 EDT, 1 tab, PO, Daily Start Date: 04/04/24 Status: Ordered Aspirin Low Dose Start: 12/18/15 14:52:00, 81 mg =, PO, Daily Start Date: 12/18/15 Status: Ordered atorvastatin 20 mg oral tablet Start: 04/04/24 5:19:00 EDT, 1 tab, PO, Daily Start Date: 04/04/24 Status: Ordered calcium (as carbonate)-vitamin D 500 mg-10 mcg (400 intl units) oral tablet Start: 04/04/24 5:17:00 EDT, 1 tab, Daily Start Date: 04/04/24 Status: Ordered Calcium 500+D Start: 12/18/15 14:52:00, 1 tab, PO, bid Start Date: 12/18/15 Status: Ordered carvedilol 3.125 mg oral tablet Start: 04/04/24 5:19:00 EDT, 1 tab, PO, bid Start Date: 04/04/24 Status: Ordered Flomax 0.4 mg oral capsule Start: 12/18/15 14:58:00, 1 cap, PO, Daily Start Date: 12/18/15 Status: Ordered furosemide 20 mg oral tablet Start: 04/04/24 5:19:00 EDT, 1 tab, PO, Daily Start Date: 04/04/24 Status: Ordered multivitamin Start: 12/18/15 14:52:00, 1 tab, PO, Daily Start Date: 12/18/15 Status: Ordered omeprazole Start: 12/18/15 14:53:00, 40 mg =, PO, Daily Start Date: 12/18/15 Status: Ordered Potassium Chloride (Yxr-[id number] 10) 10 mEq oral tablet, extended release TAKE 1 TABLET ORALLY DAILY FOR TAKE WITH LASIX (FUROSEMIDE) Start Date: 04/04/24 Status: Ordered Vitamin B Complex Start: 12/18/15 14:52:00, 1 tab, PO, Daily Start Date: 12/18/15 Status: Ordered Vitamin B12 Start: 04/04/24 5:17:00 EDT, 1,000 mcg =, Daily Start Date: 04/04/24 Status: Ordered Vitamin B12 Start: 12/18/15 14:51:00, 100 mcg =, PO, Daily Start Date: 12/18/15 Status: Ordered Vitamin D2 Start: 12/18/15 14:52:00, 400 Int_Unit =, PO, Daily Start Date: 12/18/15 Status: Ordered Problem List Condition Confirmation Course Effective Dates Status Health St atus Informant Arthritis Confirmed Active Neuropathy, peripheral Confirmed Active Heartburn Confirmed Active Hiatal hernia Confirmed Active Weight disorder Confirmed Active Procedures Procedure Date Related Diagnosis Body Site Status CAT scan 2014 Completed MRI 2014 Completed Surgery 2013 Completed Cholecystectomy 1996 Completed 1ABD 2ABD 3parathyroid Social History Social History Type Response Smoking Status Never smoked cigaret vinnie Sex Male Patient Care team information Care Team Personnel Name: MD Rekha, Gee Durbin Position: Referring DIRECT Member Role: Primary Care Provider Address: Address: [facility] [address] [place] [address] Care Team Related Persons Name: JAMAL PEREZ Address: [address], [place] [phone] Name: CUONG RODARTE
[2024-05-02] MEDS ORDERED: WARFARIN SOD 2.5 MG TAB PO SCH (16:00)
[2024-05-02] MEDS: PIPER/TAZO 4.5g in D5W MINI-B 100 ML IV SCH (16:43)
[2024-05-02] MEDS: PRAVASTATIN SOD 10 MG TAB PO SCH (16:43)
[2024-05-02] MEDS ORDERED: CEFEPIME 2,000 MG in SYRINGE 0 ML IV SCH (17:00)
--- NOTE | 2024-05-02 17:11 | Medical Student Progress Note ---
Date of Service May 02, 2024 Assessment & Plan (1) Septic shock: Plan: Patient with leukocytosis, Possible pneumonia on chest x-ray. CT chest showed possible pna and pneumobilia - Elevated lactate, Pro-Barrington elevated (0.69) - Blood cultures and urine culture pending - BioFire, nasal MRSA neg, likely hospital acquired - Etiology:iatrogenic pneumonia v pneumobilia, given history and chest CT pna more likely - Given low Platelet 52, elevated D-dimer>[id number], low fibrinogen<50, elevated PT 51.7 and elevated aPTT 45, concern for DIC, however peripheral smear was reassuring - Continue vancomycin, Zosyn, doxycycline (2) Acute hypoxic respiratory failure: Plan: Acute hypoxic respiratory failurelikely mixed etiology in the setting of acute CHF following A-fib RVR, and possible underlying pneumonia. - CT chest showed bilateral airspace opacities and interstitial thickening possibly pna and superimposed pulmonary edema as well as a possible lesion - ABG with hypoxia respiratory alkalosis - PE unlikely given systemic anticoagulation - Careful with diuresis giving shock - Currently on high flow nasal cannula, low threshold for intubation. - Continuous O2 monitoring (3) Encephalopathy: Plan: Likely secondary to underlying sepsis. Mild elevation of BUN may be contributing. CT head unremarkable. 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 (4) Acute kidney injury: Plan: Likely prerenal in the setting of septic shock. - Maintain MAP greater than 65. - Trend BMPs. - Avoid nephrotoxins and renally adjust medications. Monitor - Careful with fluid resuscitation given sepsis (5) Acute systolic heart failure: Plan: -Random cortisol elevated (>60) -TTE 04/20: Moderate to severely reduced EF, with mild concentric hypertrophy, severe valvular aortic stenosis with moderate mitral regurg and elevated RV systolic pressure 40-50. - Currently maintaining MAP greater than 65 with low-dose Levophed drip. Consider central line if increased vasopressor requirement. Picc line placed this morning -Careful with fluid and resuscitation given underlying CHF/hypoxic respiratory failure (6) Atrial fibrillation with rapid ventricular response: Plan: Cardioverted 05/02 for A-fib RVR. Continuous monitoring on telemetry. Currently NSR (7) CAD (coronary artery disease): Plan: as above (8) Severe aortic stenosis: Plan: Cardiology recommendation for TAVR consult once stable enough to proceed on last admission. 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 Easily confused. Denies any pain or shortness of breath. Vitals noted, in general he is awake and alert easily confused but does not appear to be in distress. He is on significant high flow nasal cannula. Lungs are surprisingly clear without rales rhonchi or wheezes, although of course exam is suboptimal because of his positioning and weakness. Skin with diffuse bruising scattered throughout, but no petechiae. No focal neurodeficits on gross exam. Labs and diagnostics noted and reviewed severe sepsis/septic shock with possible DICpneumonia is most likely source. Pneumobilia concerning, but he does not otherwise clinically appear consistent with cholangitiscontinue broad antibiotic coverage, serial exams, supportive care, follow cultures. While delirious, he does look more alert and energetic at bedside than anticipated based on how ill he is, which is reassuring. Greatly appreciate ICU management Subjective Admitted to the ICU after presenting in the ED for confusion and hypotension from [facility] after recent discharge from [facility]. Confused at bedside this morning, oriented to self, interview limited due to disorientation. Review of Systems Review of Systems: as per HPI Physical Exam Constitutional: frail appearing, in distress (confusion) Respiratory: tachypneic, shallow breaths, no accessory muscle use, crackles in the lower cabello bilaterally on ascultation Cardiovascular: Regular rate and rhythm, no edema, lower extremities cool to touch Gastrointestinal (Abdomen): Normal bowel sounds, no hepatosplenomegaly palpated Psychiatric: Oriented to self but not time, place, or president, poor gross memory, did not seem internally preoccupied Genitourinary: Indwelling ocasio catheter Results & Data Vital Signs (Past 12 Hours) Vital Signs Temp Pulse Pulse Resp BP BP Pulse Ox 05/02/24 07:28 90 26 H 95 05/02/24 05:53 89 97/62 L 100 06/05/24 05:10 36.5 C 90 26 H 101/70 05/02/24 05:00 83 30 H 122/78 05/02/24 04:46 81 05/02/24 04:42 87 40 H 90/73 L 05/02/24 04:30 80 26 H 05/02/24 04:18 131 H 36 H 100/59 L 05/02/24 04:03 129 H 34 H 87/67 L 05/02/24 03:54 140 H 32 H 90/56 L 05/02/24 03:47 133 H O2 Del Method O2 Flow Rate FiO2 05/02/24 07:28 High Flow Nasal Cannula 40 100 05/02/24 05:53 High Flow Nasal Cannula 05/02/24 05:10 05/02/24 05:00 05/02/24 04:46 05/02/24 04:42 05/02/24 04:30 High Flow Nasal Cannula 40 100 05/02/24 04:18 05/02/24 04:03 05/02/24 03:54 05/02/24 03:47
[2024-05-02] MEDS: DOXYCYCLINE HYCLATE 100 MG in D5W MINI-B 100 ML (Q12H) IV SCH (21:00)
[2024-05-02] MEDS: ACETAMINOPHEN 325 MG TAB PO PRN (22:18)
[2024-05-03 05:17] LABS: Hematocrit (blood only) 29.1 % (42.0-52.0); Hemoglobin 9.5 g/dl (14.0-18.0); Mean Corpuscular Hemoglobin 30.4 pg (25.0-34.0); Mean Corpuscular Hgb Conc 32.6 g/dL (32.0-36.0); Mean Corpuscular Volume 93.3 fL (80.0-100.0); Mean Platelet Volume 12.2 fL (9.4-12.4); Nucleated RBC # (auto) 0.06 K/uL (0.00-0.12); Nucleated RBC % (auto) 0.3 %; Platelet Count 42 K/uL (130-400); RDW Coefficient of Variation 15.4 % (11.5-14.5); RDW Standard Deviation 51.3 fL (36.4-46.3); Red Blood Count 3.12 M/uL (4.70-6.10); White Blood Count 18.45 K/ul (4.8-10.8)
[2024-05-03 05:44] LABS: Albumin Level 2.5 gm/dl (3.4-5.0); BUN Creatinine Ratio 54.4 (10-20); Bilirubin Direct 0.3 mg/dl (0-0.2); Bilirubin,Total 0.9 mg/dl (0.2-1.0); Calcium 7.9 mg/dl (8.6-10.3); Creatinine Clr Calc Pharmacy 49.7 ml/min; Est GFR (Non-African American) 59.6 ml/min; Magnesium 2.6 mg/dl (1.7-2.4); Phosphorus 3.8 mg/dl (2.5-4.9); Potassium 3.1 mmol/L (3.5-5.1); Total Protein 5.1 gm/dl (6.0-8.3)
--- NOTE | 2024-05-03 07:14 | XRay Report ---
XR chest 1V portable HISTORY: 84 years-old Male Resp failure acute shortness of breath with respiratory failure COMPARISON: 05/02/2024 TECHNIQUE: AP view of the chest FINDINGS: Right-sided PICC has been placed, distal tip in expected location of the mid SVC. No postprocedural p neumothorax. Cardiac silhouette is enlarged. Extensive mixed interstitial and alveolar opacities are redemonstrated, right greater than left. Trace right and small left pleural effusions. No significant change. Bones appear grossly intact. IMPRESSION: 1. Status post placement of a right-sided PICC. No postprocedural pneumothorax. 2. Stable appearance of the extensive mixed interstitial and alveolar opacities. 3. Trace right and small left pleural effusions. ACT 112: Negative or not required by law. The above report was generated using voice recognition software. It may contain grammatical, syntax o r spelling errors. Electronically signed by: Deuce Zuniga M.D. 05/03/2024 7:13 AM
[2024-05-03] MEDS ORDERED: DEXTROSE 50% 50 ML SYRINGE IV PRN (08:09)
[2024-05-03] MEDS ORDERED: GLUCOSE 10 TAB/TUBE PO PRN (08:09)
[2024-05-03] MEDS ORDERED: CARBOHYDRATES FOR HYPOGLYCEMIA PO PRN (08:09)
[2024-05-03] MEDS ORDERED: GLUCAGON FOR INJ 1 MG VIAL SQ PRN (08:09)
[2024-05-03] MEDS ORDERED: GLUCOSE 40% GEL 15 GM TUBE PO PRN (08:09)
[2024-05-03] MEDS: METOPROLOL TARTRATE 1 MG/ML VIAL IV STA ×2 (09:43→15:00)
[2024-05-03] MEDS ORDERED: 0.2 MICRON FILTER SET 1 EACH IV STA (09:44)
[2024-05-03] MEDS ORDERED: AMIODARONE IV BOLUS & DRIP IV STA (09:44)
[2024-05-03] MEDS ORDERED: STAT IV Infusion **Titration per Protocol STA (09:44)
--- NOTE | 2024-05-03 10:03 | Critical Care Progress Note ---
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 Presents to the emergency department with A-fib RVR, hypotensive, and hypoxic requiring high flow nasal cannula and vasopressor support and underwent cardioversion. Neuro - Encephalopathylikely secondary to underlying sepsis. Mild elevation of BUN may be contributing. CT head currently pending. 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 Cardiac - Shocklikely mixed etiology with underlying systolic heart failure, severe and A-fib RVR on admission requiring cardioversion. Patient likely septic from pulmonary source as well. -Yesterday patient was by enlarge part normal sinus rhythm with frequent PVCs, this morning he converted into paroxysmal atrial fibrillation -Emergently cardioverted on 05/02. -Suspect paroxysmal A-fib is worsened by relative hypoxia and underlying pneumonia -Will start amiodarone 4 rate control and hopefully rhythm control - 2.5 mg metoprolol every 6 hours (holding Coreg), very poor cardiac function at baseline with systolic CHF and severe aortic stenosis and severe mitral regurg would benefit from slower heart rates -If we cannot achieve better heart rates and blood pressure with vasoactive's will consider cardioversion: Understand risk for increase stroke however he has been supratherapeutic and his INR and feel the risks of severe ongoing cardiac dysfunction and hypotension outweigh the risks of possible embolism in the setting of cardioversion. -Cardioversion in the emergency department was completed with 1 mg of Versed and 100 J Respiratory - Acute hypoxic respiratory failurelikely mixed etiology in the setting of acute CHF following A-fib RVR, and possible underlying pneumonia. -Heated high flow 40 L 60% saturating 99, oxygen saturations dropped to 91 with and he converted to atrial fibrillation -Patient wants aggressive measures undertaken if he continues to be hypoxic we may proceed with intubation if we cannot resolve the hemodynamic dis ruptions - PE unlikely given systemic anticoagulation GI - N.p.o. for now Mild transaminitis: Improving -Suspect hypotension secondary to sepsis versus congestive hepatopathy RENAL/LYTES - AKIimproving -Suspect it was likely hypotension induced secondary to atrial fibrillation given that the patient has not had profound volume expansion and his creatinine improved. - Maintain MAP greater than 65. -Mild hyperchloremia and hypernatremia -Mild hypokalemia 3.1, replete with 60 mEq potassium acetate -Magnesium adequate at 2.6 -Small volume expansion with 250 mL of Plasma-Lyte bolus. -Suspect large contribution to underlying cardiac dysfunction will need to carefully monitor fluid responsiveness to avoid CHF -Believe the patient is by enlarge hypervolemic peripherally but may be intravascularly volume down - Foleystrict I's and O's -Hematuria: Will follow and provide supportive care for coagulation profile disturbances ENDO - Is currently euglycemic. ICU hyperglycemic protocol HEME - Anemia: Suspect anemia of chronic disease however continue to monitor as it is downtrending -Reviewed peripheral smear, no evidence of DIC Supratherapeutic INR 5.2 continue to hold warfarin Hypofibrinogenemia: Suspect this is secondary to sepsis and underlying organ dysfunction -Will transfuse 1 unit [id number] hematuria ID - Sepsispatient with leukocytosis, Possible pneumonia on chest x-ray. CT chest currently pending - Elevated lactate, Pro-Barrington pending - Blood cultures: No growth in 24 hours and urine culture: Unremarkable - BioFire, nasal MRSA negative -Doxycycline for atypical coverage, Zosyn for pneumonia/hospital- acquired/questionable aspiration and pneumobilia, vancomycin empiric coverage: Planned 7 days of Doxy Zosyn coverage pulmonary source -Discontinue vancomycin today LINES/IV ACCESS - Peripheral IVs DVT PROPHYLAXIS - SCDs, systemic anticoagulation I have personally spent 70 minutes of critical care time in the direct management of this patient. This is a life/limb threatening event. This includes time spent evaluating patient, direct bedside care, chart review, placing orders, interpretation of diagnostic studies, discussion with consultants, patient, and family members, as well as other required patient management activities. This time is exclusive of all separately billable procedures, and teaching time and separate from and in addition to any other critical care service time. 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 This morning patient resting in room Physical Exam Physical Exam: General: Sleeping in room initially, experiencing bouts of intermittent confusion Skin: Warm, dry, Head: Atraumatic Ears, nose, mouth and throat: airway patent Cardiovascular: Normal peripheral perfusion, Respiratory: no respiratory distress, mild tachypnea however able to speak in full sentences Gastrointestinal: Non distended Musculoskeletal: No deformity Results & Data Results & Data Vital Signs (Past 12 Hours) Vital Signs Temp Pulse Pulse Pulse Resp BP Pulse Ox 05/03/24 07:23 82 28 H 99 05/03/24 06:06 37.2 C 81 30 H 99 05/03/24 06:06 93/62 L 05/03/24 06:01 84/51 L 05/03/24 05:54 37.3 C 82 27 H 91 05/03/24 05:30 37.3 C 80 29 H 102/65 96 05/03/24 05:09 37.3 C 84 22 98 05/03/24 05:01 91/67 L 05/03/24 04:27 37.2 C 79 23 100 05/03/24 04:06 37.2 C 77 27 H 100/56 L 96 05/03/24 03:30 37.1 C 82 32 H 05/03/24 03:15 86 24 97 05/03/24 03:00 37.2 C 83 22 101/66 05/03/24 02:36 37.2 C 80 25 H 95 05/03/24 02:18 37.2 C 80 29 H 99/71 L 05/03/24 01:36 37.3 C 83 16 05/03/24 01:12 37.3 C 82 33 H 92 05/03/24 01:01 97/60 L 05/03/24 00:45 37.4 C 86 25 H 97 05/03/24 00:30 37.4 C 76 26 H 100 05/03/24 00:05 101/63 05/03/24 00:03 37.5 C 82 25 H 100 05/03/24 00:00 37.5 C 80 25 H 100 05/03/24 00:00 05/02/24 23:39 37.6 C H 82 29 H 100 05/02/24 23:15 83 06/05/24 23:00 97/70 L 05/02/24 23:00 37.7 C H 83 27 H 100 05/02/24 22:42 82 26 H 100 05/02/24 22:39 37.7 C H 84 34 H 05/02/24 22:00 101/84 05/02/24 22:00 37.8 C H 87 34 H 91 05/02/24 21:39 37.8 C H 86 21 99 O2 Del Method O2 Flow Rate FiO2 05/03/24 07:23 High Flow Nasal Cannula 40 60 05/03/24 06:06 High Flow Nasal Cannula 40 70 05/03/24 06:06 05/03/24 06:01 05/03/24 05:54 High Flow Nasal Cannula 40 70 05/03/24 05:30 High Flow Nasal Cannula 40 70 05/03/24 05:09 High Flow Nasal Cannula 40 70 05/03/24 05:01 05/03/24 04:27 05/03/24 04:06 High Flow Nasal Cannula 40 80 05/03/24 03:30 05/03/24 03:15 High Flow Nasal Cannula 40 70 05/03/24 03:00 05/03/24 02:36 High Flow Nasal Cannula 40 80 05/03/24 02:18 05/03/24 01:36 05/03/24 01:12 05/03/24 01:01 05/03/24 00:45 05/03/24 00:30 High Flow Nasal Cannula 40 80 05/03/24 00:05 05/03/24 00:03 05/03/24 00:00 05/03/24 00:00 High Flow Nasal Cannula 40 80 05/02/24 23:39 High Flow Nasal Cannula 05/02/24 23:15 05/02/24 23:00 05/02/24 23:00 High Flow Nasal Cannula 80 05/02/24 22:42 High Flow Nasal Cannula 40 80 05/02/24 22:39 05/02/24 22:00 05/02/24 22:00 High Flow Nasal Cannula 100 05/02/24 21:39 Critical Care Results & Data Vital Signs (Past 12 Hours) Vital Signs Temp Pulse Pulse Pulse Resp BP Pulse Ox 05/03/24 07:23 82 28 H 99 05/03/24 06:06 37.2 C 81 30 H 99 05/03/24 06:06 93/62 L 05/03/24 06:01 84/51 L 05/03/24 05:54 37.3 C 82 27 H 91 05/03/24 05:30 37.3 C 80 29 H 102/65 96 05/03/24 05:09 37.3 C 84 22 98 05/03/24 05:01 91/67 L 05/03/24 04:27 37.2 C 79 23 100 05/03/24 04:06 37.2 C 77 27 H 100/56 L 96 05/03/24 03:30 37.1 C 82 32 H 05/03/24 03:15 86 24 97 05/03/24 03:00 37.2 C 83 22 101/66 05/03/24 02:36 37.2 C 80 25 H 95 05/03/24 02:18 37.2 C 80 29 H 99/71 L 05/03/24 01:36 37.3 C 83 16 05/03/24 01:12 37.3 C 82 33 H 92 05/03/24 01:01 97/60 L 05/03/24 00:45 37.4 C 86 25 H 97 05/03/24 00:30 37.4 C 76 26 H 100 05/03/24 00:05 101/63 05/03/24 00:03 37.5 C 82 25 H 100 05/03/24 00:00 37.5 C 80 25 H 100 05/03/24 00:00 05/02/24 23:39 37.6 C H 82 29 H 100 05/02/24 23:15 83 05/02/24 23:00 97/70 L 05/02/24 23:00 37.7 C H 83 27 H 100 05/02/24 22:42 82 26 H 100 05/02/24 22:39 37.7 C H 84 34 H 05/02/24 22:00 101/84 05/02/24 22:00 37.8 C H 87 34 H 91 05/02/24 21:39 37.8 C H 86 21 99 O2 Del Method O2 Flow Rate FiO2 05/03/24 07:23 High Flow Nasal Cannula 40 60 05/03/24 06:06 High Flow Nasal Cannula 40 70 05/03/24 06:06 05/03/24 06:01 05/03/24 05:54 High Flow Nasal Cannula 40 70 05/03/24 05:30 High Flow Nasal Cannula 40 70 05/03/24 05:09 High Flow Nasal Cannula 40 70 05/03/24 05:01 05/03/24 04:27 05/03/24 04:06 High Flow Nasal Cannula 40 80 05/03/24 03:30 05/03/24 03:15 High Flow Nasal Cannula 40 70 05/03/24 03:00 05/03/24 02:36 High Flow Nasal Cannula 40 80 05/03/24 02:18 05/03/24 01:36 05/03/24 01:12 05/03/24 01:01 05/03/24 00:45 05/03/24 00:30 High Flow Nasal Cannula 40 80 05/03/24 00:05 05/03/24 00:03 05/03/24 00:00 05/03/24 00:00 High Flow Nasal Cannula 40 80 05/02/24 23:39 High Flow Nasal Cannula 05/02/24 23:15 05/02/24 23:00 05/02/24 23:00 High Flow Nasal Cannula 80 05/02/24 22:42 High Flow Nasal Cannula 40 80 05/02/24 22:39 05/02/24 22:00 05/02/24 22:00 High Flow Nasal Cannula 100 05/02/24 21:39 Lab & Micro Results (Past 24 Hours) RBC 3.12 M/uL (4.70-6.10) L 05/03/24 WBC 18.45 K/ul (4.8-10.8) H 05/03/24 Hgb 9.5 g/dl (14.0-18.0) L 05/03/24 Hct 29.1 % (42.0-52.0) L 05/03/24 MCV 93.3 fL (80.0-100.0) 05/03/24 MCH 30.4 pg (25.0-34.0) 05/03/24 MCHC 32.6 g/dL (32.0-36.0) 05/03/24 RDW Standard Deviation 51.3 fL (36.4-46.3) H 05/03/24 RDW Coefficient of Variation 15.4 % (11.5-14.5) H 05/03/24 Plt Count 42 K/uL (130-400) L 05/03/24 MPV 12.2 fL (9.4-12.4) 05/03/24 Nucleated Red Blood Cells % (auto) 0.3 % 05/03 Nucleated RBC Absolute Count (auto) 0.06 K/uL (0.00-0.12) 0 05/03/24 Na 148 mmol/L (136-145) H 05/03/24 K 3.1 mmol/L (3.5-5.1) L 05/03/24 Cl 115 mmol/L (98-107) H 05/03/24 CO2 24 mmol/L (21-32) 05/03/24 Anion Gap 9 (3-11) 05/03/24 BUN 62 mg/dl (6-23) H 05/03/24 Creatinine 1.14 mg/dl (0.6-1.4) 05/03/24 Estimated GFR ( Amer) 69.0 ml/min 05/03/24 Estimated GFR (Non-Af Amer) 59.6 ml/min 05/03/24 BUN/Creatinine Ratio 54.4 (10-20) H 05/03/24 Glu 129 mg/dl (70-99(Fasting)) H 05/03/24 Ca 7.9 mg/dl (8.6-10.3) L 05/03/24 Phosphorus Level 3.8 mg/dl (2.5-4.9) 05/03/24 Total Bilirubin 0.9 mg/dl (0.2-1.0) 05/03/24 Direct Bilirubin 0.3 mg/dl (0-0.2) H 05/03/24 AST 41 U/L (13-39) H 05/03/24 ALT 71 U/L (7-52) H 05/03/24 Alkaline Phosphatase 83 U/L (34-104) 05/03/24 TP 5.1 gm/dl (6.0-8.3) L 05/03/24 Albumin 2.5 gm/dl (3.4-5.0) L 05/03/24 Mg 2.6 mg/dl (1.7-2.4) H 05/03/24 04:58 Calcium Level 7.9 mg/dl (8.6-10.3) L 05/03/24 04:58 Prothromb Time International Ratio 5.2 (0.9-1.1) H 05/02/24 11 :55 Microbiology 05/02/24 05:35 Urine Culture - Preliminary Urine,Indwelling Cath No growth - Less than 1,000 colonies/mL, Final report to follow. 05/02/24 05:05 Aerobic Blood Culture - Preliminary Blood No growth in Aerobic bottle after 24 hours. 05/02/24 04:17 Aerobic Blood Culture - Preliminary Blood No growth in Aerobic bottle after 24 hours. Anaerobic Blood Culture - Preliminary No growth in Anaerobic bottle after 24 hours. Diagnostic Findings (Past 24 Hours) Chest X-Ray 05/03/24 07:00 XR chest 1V portable HISTORY: 84 years-old Male Resp failure acute shortness of breath with res piratory failure COMPARISON: 05/02/2024 TECHNIQUE: AP view of the chest FINDINGS: Right-sided PICC has been placed, distal tip in expected location of the mid SVC. No postprocedural pneumothorax. Cardiac silhouette is enlarged. Extensive mixed interstitial and alveolar opacities are redemonstrated, right greater than left. Trace right and small left pleural effusions. No significant change. Bones appear grossly intact. IMPRESSION: 1. Status post placement of a right-sided PICC. No postprocedural pneumothorax. 2. Stable appearance of the extensive mixed interstitial and alveolar opacities. 3. Trace right and small left pleural effusions. ACT 112: Negative or not required by law. The above report was generated using voice recognition software. It may contain grammatical, syntax or spelling errors. Electronically signed by: Deuce Zuniga M.D. 05/03/2024 7:13 AM I & O Totals 24 Hours 05/02/24 05/03/24 05/04/24 06:59 06:59 06:59 Intake Total 5.405 / 5.405 1887.965 / 1887.965 33.711 / 33.711 Output Total 1450 / 1450 Balance 5.405 / 5.405 437.965 / 437.965 33.711 / 33.711 Cumulative 05/02/24 03:34 thru 05/03/24 09:08 Intake Total 1927.081 Output Total 1450 Balance 477.081 RT Ventilator Mngmt (Last Documented) Ventilator Ordered Settings Respiratory Rate 28 05/03/24 07:23 Fraction of Inspired Oxygen 60 05/03/24 07:23 Ventilator - PT Measurements Respiratory Rate 28 Coding Level of Care Code 33868 CRITICAL CARE 1ST 30-74M Diagnoses Septic shock A41.9; R65.21 Acute hypoxic respiratory failure J96.01 Severe aortic stenosis I35.0 Nonrheumatic mitral valve regurgitation I34.0 Cardiac valve disease etiology: nonrheumatic GERD without esophagitis K21.9 Acute kidney injury N17.9 Acute systolic heart failure I50.21 CAD (coronary artery disease) I25.10 Hyperlipidemia E78.5 Dissection of carotid artery I77.71 (4) Mitral regurgitation Cardiac valve disease etiology: nonrheumatic Qualified Code(s): I34.0 - Nonrheumatic mitral (valve) insufficiency
[2024-05-03] MEDS: VANCOMYCIN HCL 1,000 MG in SODIUM CHLORIDE 0.9% 250 ML IV SCH (10:30)
[2024-05-03] MEDS: METOPROLOL TARTRATE 1 MG/ML VIAL IV ONE ×2 (12:17→12:50)
[2024-05-03] MEDS: AMIODARONE / D5W 360 MG/200 ML BAG IV ONE (12:58)
[2024-05-03] MEDS: AMIODARONE / D5W 150 MG/100 ML BAG IV ONE (13:00)
[2024-05-03] MEDS: PLASMA-LYTE A 1,000 ML IV SCH (13:02)
[2024-05-03] MEDS: POTASSIUM ACETATE/NSS 20 MEQ/110 ML BAG IV SCH (13:03)
[2024-05-03] MEDS: INSULIN ASPART PER UNIT CHARGE SC SCH (14:39)
[2024-05-03] MEDS: AMIODARONE 150MG / 100ML D5W IV ONE (14:40)
[2024-05-03] MEDS: MoRPHine SULFATE 2 MG/ML CARP IV STA (16:33)
--- NOTE | 2024-05-03 16:53 | Medical Student Progress Note ---
Date of Service May 03, 2024 Assessment & Plan (1) Septic shock: Plan: Patient with leukocytosis, Possible pneumonia on chest x-ray. CT chest showed possible pna and pneumobilia - Elevated lactate, Pro-Barrington elevated (0.69) - Blood cultures and urine culture pending - BioFire, nasal MRSA neg, likely hospital acquired - Etiology:iatrogenic pneumonia v pneumobilia, given history and chest CT pna more likely - Given low Platelet 52, elevated D-dimer>[id number], low fibrinogen<50, elevated PT 51.7 and elevated aPTT 45, concern for DIC, however peripheral smear was reassuring - 05/03 DC vancomycin at ICU team's recommendation, continue Zosyn, doxycycline - 05/03 INR 5.2 hold warfarin per ICU team recommendation (2) Acute hypoxic respiratory failure: Plan: Acute hypoxic respiratory failurelikely mixed etiology in the setting of acute CHF following A-fib RVR, and possible underlying pneumonia. - CT chest showed bilateral airspace opacities and interstitial thickening possibly pna and superimposed pulmonary edema as well as a possible lesion - ABG with hypoxia respiratory alkalosis - PE unlikely given systemic anticoagulation - Careful with diuresis giving shock - Currently on high flow nasal cannula, low threshold for intubation. - Continuous O2 monitoring (3) Encephalopathy: Plan: Likely secondary to underlying sepsis. Mild elevation of BUN may be contributing. CT head unremarkable. 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 (4) Acute kidney injury: Plan: Likely prerenal in the setting of septic shock. - Maintain MAP greater than 65. - Trend BMPs. - Avoid nephrotoxins and renally adjust medications. Monitor - Careful with fluid resuscitation given sepsis 05/03 mild hyperchloremia, hypernatremia, hypokalemia at 3.1, replete with 60mEq potassium acetate (5) Acute systolic heart failure: Plan: -Random cortisol elevated (>60) -TTE 04/20: Moderate to severely reduced EF, with mild concentric hypertrophy, se jarek valvular aortic stenosis with moderate mitral regurg and elevated RV systolic pressure 40-50. - Currently maintaining MAP greater than 65 with low-dose Levophed drip. Consider central line if increased vasopressor requirement. Picc line placed this morning -Careful with fluid and resuscitation given underlying CHF/hypoxic respiratory failure (6) Atrial fibrillation with rapid ventricular response: Plan: Cardioverted 05/02 for A-fib RVR. Continuous monitoring on telemetry. Having episodes of paroxysmal atrial fibrillation ICU team started amiodarone for rate and rhythm control and metoprolol (7) CAD (coronary artery disease): Plan: as above (8) Severe aortic stenosis: Plan: Cardiology recommendation for TAVR consult once stable enough to proceed on last admission. 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 ICU managing care at this time severe sepsis/septic shock and type 2 NH with possible DICpneumonia is most likely source. Pneumobilia concerning, but he does not otherwise clinically appear consistent with cholangitiscontinue broad antibiotic coverage, serial exams, supportive care, follow cultures. prognosis guarded. Greatly appreciate ICU management Subjective Interrupted sleep overnight and disoriented when awake, patient resting this morning, still not oriented to place or time Appreciate ICU team's careful management. Review of Systems Review of Systems: as per HPI Physical Exam 2 Constitutional: frail appearing, resting in bed, no acute distress Respiratory: Normal respiratory effort with high flow nasal canula Cardiovascular: Regular rate and rhythm Neurologic: oriented to self but not time or place Results & Data Vital Signs (Past 12 Hours) Vital Signs Temp Pulse Pulse Pulse Resp BP Pulse Ox 05/03/24 06:06 37.2 C 81 30 H 99 05/03/24 06:06 93/62 L 05/03/24 06:01 84/51 L 05/03/24 05:54 37.3 C 82 27 H 91 05/03/24 05:30 37.3 C 80 29 H 102/65 96 05/03/24 05:09 37.3 C 84 22 98 05/03/24 05:01 91/67 L 05/03/24 04:27 37.2 C 79 23 100 05/03/24 04:06 37.2 C 77 27 H 100/56 L 96 05/03/24 03:30 37.1 C 82 32 H 05/03/24 03:15 86 24 97 05/03/24 03:00 37.2 C 83 22 101/66 05/03/24 02:36 37.2 C 80 25 H 95 05/03/24 02:18 37.2 C 80 29 H 99/71 L 05/03/24 01:36 37.3 C 83 16 05/03/24 01:12 37.3 C 82 33 H 92 05/03/24 01:01 97/60 L 05/03/24 00:45 37.4 C 86 25 H 97 05/03/24 00:30 37.4 C 76 26 H 100 05/03/24 00:05 101/63 05/03/24 00:03 37.5 C 82 25 H 100 05/03/24 00:00 37.5 C 80 25 H 100 05/03/24 00:00 05/02/24 23:39 37.6 C H 82 29 H 100 05/02/24 23:15 83 05/02/24 23:00 97/70 L 05/02/24 23:00 37.7 C H 83 27 H 100 05/02/24 22:42 82 26 H 100 05/02/24 22:39 37.7 C H 84 34 H 05/02/24 22:00 101/84 05/02/24 22:00 37.8 C H 87 34 H 91 05/02/24 21:39 37.8 C H 86 21 99 05/02/24 21:06 37.8 C H 80 25 H 05/02/24 20:42 37.8 C H 85 7 L 100 O2 Del Method O2 Flow Rate FiO2 05/03/24 06:06 High Flow Nasal Cannula 40 70 05/03/24 06:06 05/03/24 06:01 05/03/24 05:54 High Flow Nasal Cannula 40 70 05/03/24 05:30 High Flow Nasal Cannula 40 70 05/03/24 05:09 High Flow Nasal Cannula 40 70 05/03/24 05:01 05/03/24 04:27 05/03/24 04:06 High Flow Nasal Cannula 40 80 05/03/24 03:30 05/03/24 03:15 High Flow Nasal Cannula 40 70 05/03/24 03:00 05/03/24 02:36 High Flow Nasal Cannula 40 80 05/03/24 02:18 05/03/24 01:36 05/03/24 01:12 05/03/24 01:01 05/03/24 00:45 05/03/24 00:30 High Flow Nasal Cannula 40 80 05/03/24 00:05 05/03/24 00:03 05/03/24 00:00 05/03/24 00:00 High Flow Nasal Cannula 40 80 05/02/24 23:39 High Flow Nasal Cannula 05/02/24 23:15 05/02/24 23:00 05/02/24 23:00 High Flow Nasal Cannula 80 05/02/24 22:42 High Flow Nasal Cannula 40 80 05/02/24 22:39 05/02/24 22:00 05/02/24 22:00 High Flow Nasal Cannula 100 05/02/24 21:39 05/02/24 21:06 05/02/24 20:42 High Flow Nasal Cannula 100
--- NOTE | 2024-05-03 16:56 | Billing Data ---
Date of Service May 03, 2024 Coding Level of Care Code 97117 SUB INP/OBS CARE
[2024-05-03] MEDS: AMIODARONE / D5W 360 MG/200 ML BAG IV SCH (17:52)
[2024-05-03] MEDS: METOPROLOL TARTRATE 1 MG/ML VIAL IV SCH (18:17)
[2024-05-03] MEDS: ACETAMINOPHEN 1,000 MG/100 ML VIAL IV PRN (23:08)
[2024-05-04] MEDS: MoRPHine SULFATE 2 MG/ML CARP IV STA ×3 (02:02→23:32)
[2024-05-04 04:11] LABS: BUN Creatinine Ratio 51.7 (10-20); Creatinine Clr Calc Pharmacy 47.5 ml/min; Est GFR (African American) 64.9 ml/min; Magnesium 2.7 mg/dl (1.7-2.4); Phosphorus 3.7 mg/dl (2.5-4.9); Potassium 3.7 mmol/L (3.5-5.1)
[2024-05-04 05:12] LABS: Basophils # (auto) 0.02 K/uL (0.00-0.20); Basophils % (auto) 0.1 %; Hematocrit (blood only) 30.9 % (42.0-52.0); Hemoglobin 9.8 g/dl (14.0-18.0); Immature Granulocytes # (auto) 0.08 K/uL (0.01-0.20); Immature Granulocytes % (auto) 0.4 %; Lymphocytes # (auto) 0.64 K/uL (1.20-3.40); Lymphocytes % (auto) 3.5 %; Mean Corpuscular Hemoglobin 29.7 pg (25.0-34.0); Mean Corpuscular Hgb Conc 31.7 g/dL (32.0-36.0); Mean Corpuscular Volume 93.6 fL (80.0-100.0); Monocytes # (auto) 0.39 K/uL (0.11-0.59); Monocytes % (auto) 2.1 %; Neutrophils # (auto) 17.06 K/uL (1.40-6.50); Neutrophils % (auto) 93.9 %; Nucleated RBC # (auto) 0.11 K/uL (0.00-0.12); Nucleated RBC % (auto) 0.6 %; Platelet Count 32 K/uL (130-400); RDW Coefficient of Variation 15.2 % (11.5-14.5); RDW Standard Deviation 51.9 fL (36.4-46.3); White Blood Count 18.19 K/ul (4.8-10.8)
[2024-05-04] MEDS: POTASSIUM CHLORIDE / WTR 10 MEQ/100 ML PLCT IV SCH (06:17)
--- NOTE | 2024-05-04 08:14 | Critical Care Progress Note ---
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 Presents to the emergency department with A-fib RVR, hypotensive, and hypoxic requiring high flow nasal cannula and vasopressor support and underwent cardioversion. Neuro - Encephalopathylikely multifactorial: Sepsis, acute kidney injury, recent CVA. Cardiac - Shocklikely mixed etiology with underlying systolic heart failure, severe and A-fib RVR on admission requiring cardioversion. Patient likely septic from pulmonary source as well. -Emergently cardioverted on 05/02. -Suspect paroxysmal A-fib is worsened by relative hypoxia and underlying pneumonia -Continue amiodarone for rate control and hopefully rhythm control today - 2.5 mg metoprolol every 6 hours (holding Coreg), very poor cardiac function at baseline with systolic CHF and severe aortic stenosis and severe mitral regurg would benefit from slower heart rates -Mild increase in vasoactive requirement -Does not appear to tolerate atrial fibrillation very well, at risk for emergent cardioversion: Understand risk for increase stroke however he has been supratherapeutic and his INR and feel the risks of severe ongoing cardiac dysfunction and hypotension outweigh the risks of possible embolism in the setting of cardioversion. -Cardioversion in the emergency department was completed with 1 mg of Versed and 100 J Respiratory - Acute hypoxic respiratory failurelikely mixed etiology in the setting of acute CHF following A-fib RVR, and possible underlying pneumonia. -Heated high flow 40 L 60% saturating 99, oxygen saturations dropped to 91 with and he converted to atrial fibrillation -Patient wants aggressive measures undertaken if he continues to be hypoxic we may proceed with intubation if we cannot resolve the hemodynamic disruptions -Tolerating high flow nasal cannula GI - N.p.o. for now Mild transaminitis: Improving -Suspect hypotension secondary to sepsis versus congestive hepatopathy RENAL/LYTES - AKInadired -Suspect prerenal etiology of hypotension most likely secondary to inability to tolerate atrial fibrillation - Maintain MAP greater than 65. -Mild hyperchloremia and hypernatremia -Relative hypokalemia being replaced -Magnesium adequate at 2.7 -Trial of gentle diuresis today, Lasix 40 mg x 1 -Patient globally 2.5 L positive, I believe by enlarge part we are likely euvolemic or hypervolemic. - Foleystrict I's and O's -Hematuria: Will follow and provide supportive care for coagulation profile disturbances ENDO - Is currently euglycemic. ICU hyperglycemic protocol HEME - Anemia: Suspect anemia of chronic disease however continue to monitor as it is downtrending -Reviewed peripheral smear, no evidence of DIC Supratherapeutic INR Hypofibrinogenemia: Suspect this is secondary to sepsis and underlying organ dysfunction -1 unit cryoprecipitate 05/03 ID - Sepsispatient with leukocytosis, - Blood cultures: No growth in 48 hours and urine culture: Unremarkable - BioFire, nasal MRSA negative - Doxycycline for atypical coverage, Zosyn for pneumonia/hospital- acquired/questionable aspiration and pneumobilia, Planned 7 days of Doxy Zosyn coverage pulmonary source LINES/IV ACCESS - Peripheral IVs DVT PROPHYLAXIS - SCDs, systemic anticoagulation Prognosis: I believe the patient is slowly decompensating. Discussed with family yesterday risks and benefits of intubation versus continuing high flow nasal cannula. Opting to continue high flow nasal cannula as I believe intubation mechanical ventilation will ultimately lead to more rapid decompensation. Patient has not improved to a point that he can safely eat while on nasal cannula. Would consider placement of soft bore NG tube to supplement feedings. Ultimately I would like to see the patient improving more rapidly to feel confident of an upward trajectory. At this time I feel he is starting to show signs of a more downward trajectory and overall negative progno sis. 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 This is a life/limb threatening event. This includes time spent evaluating patient, direct bedside care, chart review, placing orders, interpretation of diagnostic studies, discussion with consultants, patient, and family members, as well as other required patient management activities. This time is exclusive of all separately billable procedures, and teaching time and separate from and in addition to any other critical care service time. Subjective No overnight events. Physical Exam Physical Exam: General: Sleeping in room initially, experiencing bouts of intermittent confusion Skin: Warm, dry, mild acrocyanosis Head: Atraumatic Ears, nose, mouth and throat: airway patent Cardiovascular: Normal peripheral perfusion, normal sinus rhythm on bedside monitor during my evaluation Respiratory: Moderate tachypnea however able to speak in full sentences Gastrointestinal: Non distended Musculoskeletal: No deformity Results & Data Results & Data Vital Signs (Past 12 Hours) Vital Signs Temp Pulse Pulse Resp BP Pulse Ox O2 Del Method 05/04/24 08:07 89 30 H 99 High Flow Nasal Cannula 05/04/24 05:01 99/71 L High Flow Nasal Cannula 05/04/24 05:00 38.2 C H 80 27 H 100 05/04/24 04:33 38.1 C H 81 28 H 100 05/04/24 04:21 38.1 C H 82 17 100 High Flow Nasal Cannula 05/04/24 04:15 78 111/67 05/04/24 04:06 38.1 C H 84 41 H 100 05/04/24 04:00 84 114/77 05/04/24 03:42 38.1 C H 83 23 93 05/04/24 03:30 100/72 05/04/24 03:24 38.1 C H 84 32 H 100 05/04/24 03:21 38.1 C H 84 18 100 High Flow Nasal Cannula 05/04/24 03:00 38.2 C H 85 29 H 100 High Flow Nasal Cannula 05/04/24 02:42 38.2 C H 86 31 H 100 05/04/24 02:36 38.2 C H 86 35 H 100 05/04/24 02:00 38.1 C H 88 33 H 95 05/04/24 01:42 38.1 C H 80 37 H 100 05/04/24 01:30 110/65 05/04/24 01:24 38.1 C H 85 49 H 100 05/04/24 01:21 38.1 C H 84 34 H 100 05/04/24 01:17 109/70 05/04/24 01:15 38.1 C H 86 36 H 100 05/04/24 01:00 38.1 C H 84 44 H 100 05/04/24 00:30 38.1 C H 87 40 H 98 High Flow Nasal Cannula 05/04/24 00:29 100/74 05/04/24 00:21 38.1 C H 84 42 H 100 05/04/24 00:00 38.0 C H 85 40 H 100 05/04/24 00:00 82 05/03/24 23:30 38.1 C H 84 46 H 97 05/03/24 23:23 80 30 H 100 High Flow Nasal Cannula 05/03/24 23:18 38.1 C H 80 37 H 111/81 96 High Flow Nasal Cannula 05/03/24 22:30 38.1 C H 80 35 H 100 05/03/24 22:18 38.1 C H 82 31 H 100 05/03/24 21:36 38.1 C H 82 31 H 100 05/03/24 21:33 81 104/70 05/03/24 21:33 78 104/70 05/03/24 21:12 38.1 C H 80 27 H 98/64 L 99 High Flow Nasal Cannula 05/03/24 21:00 37.6 C H 83 32 H 101/82 91 High Flow Nasal Cannula 05/03/24 20:51 38.1 C H 84 39 H 97 05/03/24 20:30 High Flow Nasal Cannula 05/03/24 20:28 30 H 99 Free Flow/Blow-by 05/03/24 20:09 38.0 C H 88 37 H 99 O2 Flow Rate FiO2 05/04/24 08:07 40 50 05/04/24 05:01 40 60 05/04/24 05:00 05/04/24 04:33 05/04/24 04:21 40 60 05/04/24 04:15 05/04/24 04:06 05/04/24 04:00 05/04/24 03:42 05/04/24 03:30 05/04/24 03:24 05/04/24 03:21 40 60 05/04/24 03:00 40 60 05/04/24 02:42 05/04/24 02:36 05/04/24 02:00 05/04/24 01:42 05/04/24 01:30 05/04/24 01:24 05/04/24 01:21 05/04/24 01:17 05/04/24 01:15 05/04/24 01:00 05/04/24 00:30 40 60 05/04/24 00:29 05/04/24 00:21 05/04/24 00:00 05/04/24 00:00 05/03/24 23:30 05/03/24 23:23 40 60 05/03/24 23:18 40 60 05/03/24 22:30 05/03/24 22:18 05/03/24 21:36 05/03/24 21:33 05/03/24 21:33 05/03/24 21:12 40 60 05/03/24 21:00 40 60 05/03/24 20:51 05/03/24 20:30 40 60 05/03/24 20:28 40 50 05/03/24 20:09 Critical Care Results & Data Vital Signs (Past 12 Hours) Vital Signs Temp Pulse Pulse Resp BP Pulse Ox O2 Del Method 05/04/24 08:07 89 30 H 99 High Flow Nasal Cannula 05/04/24 05:01 99/71 L High Flow Nasal Cannula 05/04/24 05:00 38.2 C H 80 27 H 100 05/04/24 04:33 38.1 C H 81 28 H 100 05/04/24 04:21 38.1 C H 82 17 100 High Flow Nasal Cannula 05/04/24 04:15 78 111/67 05/04/24 04:06 38.1 C H 84 41 H 100 05/04/24 04:00 84 114/77 05/04/24 03:42 38.1 C H 83 23 93 05/04/24 03:30 100/72 05/04/24 03:24 38.1 C H 84 32 H 100 05/04/24 03:21 38.1 C H 84 18 100 High Flow Nasal Cannula 05/04/24 03:00 38.2 C H 85 29 H 100 High Flow Nasal Cannula 05/04/24 02:42 38.2 C H 86 31 H 100 05/04/24 02:36 38.2 C H 86 35 H 100 05/04/24 02:00 38.1 C H 88 33 H 95 05/04/24 01:42 38.1 C H 80 37 H 100 05/04/24 01:30 110/65 05/04/24 01:24 38.1 C H 85 49 H 100 05/04/24 01:21 38.1 C H 84 34 H 100 05/04/24 01:17 109/70 05/04/24 01:15 38.1 C H 86 36 H 100 05/04/24 01:00 38.1 C H 84 44 H 100 05/04/24 00:30 38.1 C H 87 40 H 98 High Flow Nasal Cannula 05/04/24 00:29 100/74 05/04/24 00:21 38.1 C H 84 42 H 100 05/04/24 00:00 38.0 C H 85 40 H 100 05/04/24 00:00 82 05/03/24 23:30 38.1 C H 84 46 H 97 05/03/24 23:23 80 30 H 100 High Flow Nasal Cannula 05/03/24 23:18 38.1 C H 80 37 H 111/81 96 High Flow Nasal Cannula 05/03/24 22:30 38.1 C H 80 35 H 100 05/03/24 22:18 38.1 C H 82 31 H 100 05/03/24 21:36 38.1 C H 82 31 H 100 05/03/24 21:33 81 104/70 05/03/24 21:33 78 104/70 05/03/24 21:12 38.1 C H 80 27 H 98/64 L 99 High Flow Nasal Cannula 05/03/24 21:00 37.6 C H 83 32 H 101/82 91 High Flow Nasal Cannula 05/03/24 20:51 38.1 C H 84 39 H 97 05/03/24 20:30 High Flow Nasal Cannula 05/03/24 20:28 30 H 99 Free Flow/Blow-by O2 Flow Rate FiO2 05/04/24 08:07 40 50 05/04/24 05:01 40 60 05/04/24 05:00 05/04/24 04:33 05/04/24 04:21 40 60 05/04/24 04:15 05/04/24 04:06 05/04/24 04:00 05/04/24 03:42 05/04/24 03:30 05/04/24 03:24 05/04/24 03:21 40 60 05/04/24 03:00 40 60 05/04/24 02:42 06/07/24 02:36 05/04/24 02:00 05/04/24 01:42 05/04/24 01:30 05/04/24 01:24 05/04/24 01:21 05/04/24 01:17 05/04/24 01:15 05/04/24 01:00 05/04/24 00:30 40 60 05/04/24 00:29 05/04/24 00:21 05/04/24 00:00 05/04/24 00:00 05/03/24 23:30 05/03/24 23:23 40 60 05/03/24 23:18 40 60 05/03/24 22:30 05/03/24 22:18 05/03/24 21:36 05/03/24 21:33 05/03/24 21:33 05/03/24 21:12 40 60 05/03/24 21:00 40 60 05/03/24 20:51 05/03/24 20:30 40 60 05/03/24 20:28 40 50 Lab & Micro Results (Past 24 Hours) RBC 3.29 M/uL (4.70-6.10) L 05/05/24 WBC 18.85 K/ul (4.8-10.8) H 05/05/24 Hgb 9.8 g/dl (14.0-18.0) L 05/05/24 Hct 30.9 % (42.0-52.0) L 05/05/24 MCV 93.9 fL (80.0-100.0) 05/05/24 MCH 29.8 pg (25.0-34.0) 05/05/24 MCHC 31.7 g/dL (32.0-36.0) L 05/05/24 RDW Standard Deviation 53.6 fL (36.4-46.3) H 05/05/24 RDW Coefficient of Variation 15.5 % (11.5-14.5) H 05/05/24 Plt Count 45 K/uL (130-400) L 05/05/24 Nucleated Red Blood Cells % (auto) 0.4 % 05/05 Nucleated RBC Absolute Count (auto) 0.08 K/uL (0.00-0.12) 0 05/05/24 Neutrophils (%) (Auto) 94.0 % 05/05/24 Lymphocytes (%) (Auto) 3.7 % 05/05/24 Monocytes # (Auto) 0.28 K/uL (0.11-0.59) 05/05/24 Eosinophils # (Auto) 0.00 K/uL (0.00-0.50) 05/05/24 Immature Granulocyte % (Auto) 0.7 % 05/05/24 Neutrophils # (Auto) 17.73 K/uL (1.40-6.50) H 05/05/24 Lymphocytes # (Auto) 0.69 K/uL (1.20-3.40) L 05/05/24 Monocytes # (Auto) 0.28 K/uL (0.11-0.59) 05/05/24 Eosinophils # (Auto) 0.00 K/uL (0.00-0.50) 05/05/24 Basophils # (Auto) 0.02 K/uL (0.00-0.20) 05/05/24 Immature Granulocyte # (Auto) 0.13 K/uL (0.01-0.20) 4 Polychromasia 2+ 05/05/24 Anisocytosis Present 05/05/24 Na 147 mmol/L (136-145) H 05/05/24 K 3.3 mmol/L (3.5-5.1) L 05/05/24 Cl 112 mmol/L (98-107) H 05/05/24 CO2 27 mmol/L (21-32) 05/05/24 Anion Gap 8 (3-11) 05/05/24 BUN 50 mg/dl (6-23) H 05/05/24 Creatinine 1.01 mg/dl (0.6-1.4) 05/05/24 Estimated GFR ( Amer) 79.9 ml/min 05/05/24 Estimated GFR (Non-Af Amer) 68.9 ml/min 05/05/24 BUN/Creatinine Ratio 49.5 (10-20) H 05/05/24 Glu 137 mg/dl (70-99(Fasting)) H 05/05/24 Ca 7.9 mg/dl (8.6-10.3) L 05/05/24 Phosphorus Level 3.1 mg/dl (2.5-4.9) 05/05/24 Total Bilirubin 0.8 mg/dl (0.2-1.0) 05/05/24 Direct Bilirubin 0.2 mg/dl (0-0.2) 05/05/24 AST 32 U/L (13-39) 05/05/24 ALT 69 U/L (7-52) H 05/05/24 Alkaline Phosphatase 83 U/L (34-104) 05/05/24 TP 5.3 gm/dl (6.0-8.3) L 05/05/24 Albumin 2.5 gm/dl (3.4-5.0) L 05/05/24 Mg 2.7 mg/dl (1.7-2.4) H 05/05/24 03:52 Calcium Level 7.9 mg/dl (8.6-10.3) L 05/05/24 03:52 Prothromb Time International Ratio 4.4 (0.9-1.1) H 05/05/24 03 :52 Venous Blood pH 7.45 (7.36-7.41) H 05/04/24 18:40 Venous Blood Partial Pressure CO2 38 mmHg (38-50) 05/04/24 18:4 0 Venous Blood Partial Pressure O2 27 mmHg 05/04/24 18:40 Venous Blood HCO3 26 mmol/L 05/04/24 18:40 Venous Blood Base Excess 2.4 mEq/L 05/04/24 18:40 Venous Blood Oxygen Saturation < 60.0 % 05/04/24 18:40 Microbiology 05/02/24 05:05 Aerobic Blood Culture - Preliminary Blood No growth in Aerobic bottle after 48 hours. Anaerobic Blood Culture - Final 05/02/24 04:17 Aerobic Blood Culture - Preliminary Blood No growth in Aerobic bottle after 48 hours. Anaerobic Blood Culture - Preliminary No growth in Anaerobic bottle after 48 hours. 05/02/24 05:35 Urine Culture - Preliminary Urine,Indwelling Cath No growth - Less than 1,000 colonies/mL, Final report to follow. I & O Totals 24 Hours 05/03/24 05/04/24 05/05/24 06:59 06:59 06:59 Intake Total 1887.965 / 2262.965 4067.462 / 4067.462 166.842 / 166.842 Output Total 1450 / 1875 2024 Balance 437.965 / 839.997 7368.462 / 2042.462 166.842 / 166.842 Cumulative 05/02/24 03:34 thru 05/04/24 07:01 Intake Total 6127.674 Output Total 3475 Balance 2652.674 RT Ventilator Mngmt (Last Documented) Ventilator Ordered Settings Respiratory Rate 30 05/04/24 08:07 Fraction of Inspired Oxygen 50 05/04/24 08:07 Ventilator - PT Measurements Respiratory Rate 30 Coding Level of Care Code 74094 CRITICAL CARE 1ST 30-74M Diagnoses Septic shock A41.9; R65.21 Acute hypoxic respiratory failure J96.01 Severe aortic stenosis I35.0 Nonrheumatic mitral valve regurgitation I34.0 Cardiac valve disease etiology: nonrheumatic GERD without esophagitis K21.9 Acute kidney injury N17.9 Acute systolic heart failure I50.21 CAD (coronary artery disease) I25.10 Hyperlipidemia E78.5 Dissection of carotid artery I77.71 (4) Mitral regurgitation Cardiac valve disease etiology: nonrheumatic Qualified Code(s): I34.0 - Nonrheumatic mitral (valve) insufficiency
[2024-05-04 08:47] LABS: Base Excess VBG 2.1 mEq/L; HCO3 VBG 26 mmol/L; Oxygen Saturation VBG < 60.0 %; PCO2 VBG 35 mmHg (38-50); PO2 VBG 28 mmHg; pH VBG 7.47 (7.36-7.41)
--- NOTE | 2024-05-04 09:47 | XRay Report ---
XR chest 1V portable HISTORY: 84 years-old Male hypoxia acute hypoxia COMPARISON: 05/03/2024 TECHNIQUE: AP view of the chest FINDINGS: Right-sided PICC is in unchanged positioning with distal tip in expected location of the mid SVC. No pneumothorax. Cardiac silhouette is enlarged. Extensive mixed interstitial and alveolar opacities are redemonstrated, right greater than left. Trace right and small left pleural effusions. No significan t change. Bones appear grossly intact. IMPRESSION: 1. Unchanged positioning of the right-sided PICC. 2. Stable appearance of the extensive mixed interstitial and alveolar opacities. 3. Trace right and small left pleural effusions. ACT 112: Negative or not required by law. The above report was generated using voice recognition software. It may contain grammatical, syntax o r spelling errors. Electronically signed by: Deuce Zuniga M.D. 05/04/2024 9:45 AM
[2024-05-04 10:14] LABS: INR 4.6 (0.9-1.1)
[2024-05-04 10:29] LABS: Fibrinogen 64 mg/dl (184-400)
--- NOTE | 2024-05-04 12:51 | Medical Student Progress Note ---
Date of Service May 04, 2024 Assessment & Plan (1) Septic shock: Plan: Patient with leukocytosis, Possible pneumonia on chest x-ray. CT chest showed possible pna and pneumobilia - Elevated lactate, Pro-Barrington elevated (0.69) - Blood cultures and urine culture pending - BioFire, nasal MRSA neg, likely hospital acquired - Etiology:iatrogenic pneumonia v pneumobilia, given history and chest CT pna more likely - Given low Platelet 52, elevated D-dimer>[id number], low fibrinogen<50, elevated PT 51.7 and elevated aPTT 45, concern for DIC, however peripheral smear was reassuring - 05/03 DC vancomycin at ICU team's recommendation, continue Zosyn, doxycycline - 05/03 INR 5.2 hold warfarin per ICU team recommendation (2) Acute hypoxic respiratory failure: Plan: Acute hypoxic respiratory failurelikely mixed etiology in the setting of acute CHF following A-fib RVR, and possible underlying pneumonia. - CT chest showed bilateral airspace opacities and interstitial thickening possibly pna and superimposed pulmonary edema as well as a possible lesion - ABG with hypoxia respiratory alkalosis - PE unlikely given systemic anticoagulation - Careful with diuresis giving shock - Currently on high flow nasal cannula, low threshold for intubation. - Continuous O2 monitoring (3) Encephalopathy: Plan: Likely secondary to underlying sepsis. Mild elevation of BUN may be contributing. CT head unremarkable. 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 (4) Acute kidney injury: Plan: Likely prerenal in the setting of septic shock. - Maintain MAP greater than 65. - Trend BMPs. - Avoid nephrotoxins and renally adjust medications. Monitor - Careful with fluid resuscitation given sepsis 05/03 mild hyperchloremia, hypernatremia, hypokalemia at 3.1, replete with 60mEq potassium acetate (5) Acute systolic heart failure: Plan: -Random cortisol elevated (>60) -TTE 04/20: Moderate to severely reduced EF, with mild concentric hypertrophy, se jarek valvular aortic stenosis with moderate mitral regurg and elevated RV systolic pressure 40-50. - Currently maintaining MAP greater than 65 with low-dose Levophed drip. Consider central line if increased vasopressor requirement. Picc line placed this morning -Careful with fluid and resuscitation given underlying CHF/hypoxic respiratory failure (6) Atrial fibrillation with rapid ventricular response: Plan: Cardioverted 05/02 for A-fib RVR. Continuous monitoring on telemetry. Having episodes of paroxysmal atrial fibrillation ICU team started amiodarone for rate and rhythm control and metoprolol Cardioverted 2x 05/04 returned NSR (7) CAD (coronary artery disease): Plan: as above (8) Severe aortic stenosis: Plan: Cardiology recommendation for TAVR consult once stable enough to proceed on last admission. 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 ICU managing care at this time severe sepsis/septic shock and type 2 AR with possible DICpneumonia is most likely source. Pneumobilia concerning, but he does not otherwise clinically appear consistent with cholangitiscontinue broad antibiotic coverage, serial exams, supportive care, follow cultures. prognosis worrisome. Greatly appreciate ICU management Subjective Resting in bed, slept well overnight, family preset overnight, per nursing Afib RVR 2x yesterday now NSR. Improved orientation Review of Systems Review of Systems: as per HPI Physical Exam Constitutional: frail appearing, in no acute distress Respiratory: On high flow nasal canula, crackles on auscultation, increased work of breathing, no accessory muscle use Cardiovascular: Regular rate and rhythm, poor perfusion in upper and lower extremities, no edema Gastrointestinal (Abdomen): decreased bowel sounds Psychiatric: Oriented to person, place, and time, expressions of despair Results & Data Vital Signs (Past 12 Hours) Vital Signs Temp Pulse Pulse Resp BP Pulse Ox O2 Del Method 05/04/24 08:07 89 30 H 99 High Flow Nasal Cannula 05/04/24 05:01 99/71 L High Flow Nasal Cannula 05/04/24 05:00 38.2 C H 80 27 H 100 05/04/24 04:33 38.1 C H 81 28 H 100 05/04/24 04:21 38.1 C H 82 17 100 High Flow Nasal Cannula 05/04/24 04:15 78 111/67 05/04/24 04:06 38.1 C H 84 41 H 100 05/04/24 04:00 84 114/77 05/04/24 03:42 38.1 C H 83 23 93 05/04/24 03:30 100/72 05/04/24 03:24 38.1 C H 84 32 H 100 05/04/24 03:21 38.1 C H 84 18 100 High Flow Nasal Cannula 05/04/24 03:00 38.2 C H 85 29 H 100 High Flow Nasal Cannula 05/04/24 02:42 38.2 C H 86 31 H 100 05/04/24 02:36 38.2 C H 86 35 H 100 05/04/24 02:00 38.1 C H 88 33 H 95 05/04/24 01:42 38.1 C H 80 37 H 100 05/04/24 01:30 110/65 05/04/24 01:24 38.1 C H 85 49 H 100 05/04/24 01:21 38.1 C H 84 34 H 100 05/04/24 01:17 109/70 05/04/24 01:15 38.1 C H 86 36 H 100 05/04/24 01:00 38.1 C H 84 44 H 100 05/04/24 00:30 38.1 C H 87 40 H 98 High Flow Nasal Cannula 05/04/24 00:29 100/74 05/04/24 00:21 38.1 C H 84 42 H 100 05/04/24 00:00 38.0 C H 85 40 H 100 05/04/24 00:00 82 05/03/24 23:30 38.1 C H 84 46 H 97 05/03/24 23:23 80 30 H 100 High Flow Nasal Cannula 05/03/24 23:18 38.1 C H 80 37 H 111/81 96 High Flow Nasal Cannula 05/03/24 22:30 38.1 C H 80 35 H 100 05/03/24 22:18 38.1 C H 82 31 H 100 O2 Flow Rate FiO2 05/04/24 08:07 40 50 05/04/24 05:01 40 60 06/07/24 05:00 05/04/24 04:33 05/04/24 04:21 40 60 05/04/24 04:15 05/04/24 04:06 05/04/24 04:00 05/04/24 03:42 05/04/24 03:30 05/04/24 03:24 05/04/24 03:21 40 60 05/04/24 03:00 40 60 05/04/24 02:42 05/04/24 02:36 05/04/24 02:00 05/04/24 01:42 05/04/24 01:30 05/04/24 01:24 05/04/24 01:21 05/04/24 01:17 05/04/24 01:15 05/04/24 01:00 05/04/24 00:30 40 60 05/04/24 00:29 05/04/24 00:21 05/04/24 00:00 05/04/24 00:00 05/03/24 23:30 05/03/24 23:23 40 60 05/03/24 23:18 40 60 05/03/24 22:30 05/03/24 22:18
[2024-05-04] MEDS: MoRPHine SULFATE 2 MG/ML CARP IV PRN (14:31)
[2024-05-04 18:57] LABS: Base Excess VBG 2.4 mEq/L; HCO3 VBG 26 mmol/L; Oxygen Saturation VBG < 60.0 %; PCO2 VBG 38 mmHg (38-50); PO2 VBG 27 mmHg; pH VBG 7.45 (7.36-7.41)
[2024-05-05 04:22] LABS: BUN Creatinine Ratio 49.5 (10-20); Calcium 7.9 mg/dl (8.6-10.3); Creatinine Clr Calc Pharmacy 56.4 ml/min; Est GFR (African American) 79.9 ml/min; Est GFR (Non-African American) 68.9 ml/min; Magnesium 2.7 mg/dl (1.7-2.4); Phosphorus 3.1 mg/dl (2.5-4.9); Potassium 3.3 mmol/L (3.5-5.1)
[2024-05-05 04:43] LABS: Anisocytosis Present; Basophils # (auto) 0.02 K/uL (0.00-0.20); Basophils % (auto) 0.1 %; Hematocrit (blood only) 30.9 % (42.0-52.0); Hemoglobin 9.8 g/dl (14.0-18.0); Immature Granulocytes # (auto) 0.13 K/uL (0.01-0.20); Immature Granulocytes % (auto) 0.7 %; Lymphocytes # (auto) 0.69 K/uL (1.20-3.40); Lymphocytes % (auto) 3.7 %; Mean Corpuscular Hemoglobin 29.8 pg (25.0-34.0); Mean Corpuscular Hgb Conc 31.7 g/dL (32.0-36.0); Mean Corpuscular Volume 93.9 fL (80.0-100.0); Monocytes # (auto) 0.28 K/uL (0.11-0.59); Monocytes % (auto) 1.5 %; Neutrophils # (auto) 17.73 K/uL (1.40-6.50); Nucleated RBC # (auto) 0.08 K/uL (0.00-0.12); Nucleated RBC % (auto) 0.4 %; Platelet Count 45 K/uL (130-400); Polychromasia 2+; RDW Coefficient of Variation 15.5 % (11.5-14.5); RDW Standard Deviation 53.6 fL (36.4-46.3); Red Blood Count 3.29 M/uL (4.70-6.10); White Blood Count 18.85 K/ul (4.8-10.8)
[2024-05-05 05:02] LABS: INR 4.4 (0.9-1.1); Prothrombin Time 41.7 Seconds (9.0-12.0)
[2024-05-05 05:12] LABS: Fibrinogen 82 mg/dl (184-400)
--- NOTE | 2024-05-05 06:19 | Electrocardiogram Report ---
Test Reason : Blood Pressure : / mmHG Vent. Rate : 131 BPM Atrial Rate : 000 BPM P-R Int : 000 ms QRS Dur : 148 ms QT Int : 374 ms P-R-T Axes : 000 114 043 degrees QTc Int : 552 ms Atrial fibrillation with rapid ventricular response Right bundle branch block Left posterior fascicular block Bifascicular block Abnormal ECG When compared with ECG of 03-APR-2024 20:11, Atrial fibrillation has replaced Sinus rhythm Confirmed by Gallito Soler ([id number]) on 05/05/2024 6:19:27 AM Referred By: Confirmed By:Gallito Soler
--- NOTE | 2024-05-05 06:20 | Electrocardiogram Report ---
Test Reason : Blood Pressure : / mmHG Vent. Rate : 085 BPM Atrial Rate : 085 BPM P-R Int : 144 ms QRS Dur : 146 ms QT Int : 452 ms P-R-T Axes : 010 -80 041 degrees QTc Int : 537 ms Sinus rhythm with occasional Premature ventricular complexes and Premature atrial complexes Right bundle branch block Left anterior fascicular block Bifascicular block Abnormal ECG When compared with ECG of 02-MAY-2024 03:45, Sinus rhythm has replaced Atrial fibrillation Vent. rate has decreased BY 46 BPM Confirmed by Gallito Soler ([id number]) on 05/05/2024 6:20:15 AM Referred By: REFERRED SELF Confirmed By:Gallito Soler
--- NOTE | 2024-05-05 06:21 | Electrocardiogram Report ---
Test Reason : Blood Pressure : / mmHG Vent. Rate : 087 BPM Atrial Rate : 087 BPM P-R Int : 168 ms QRS Dur : 148 ms QT Int : 446 ms P-R-T Axes : 044 147 031 degrees QTc Int : 536 ms Sinus rhythm with frequent Premature ventricular complexes Right bundle branch block Abnormal ECG When compared with ECG of 02-MAY-2024 04:34, Premature atrial complexes are no longer Present Confirmed by Gallito Soler ([id number]) on 05/05/2024 6:20:38 AM Referred By: REFERRED SELF Confirmed By:Gallito Soler
--- NOTE | 2024-05-05 07:09 | Hospitalist Progress Note ---
Date of Service May 05, 2024 Assessment & Plan (1) Septic shock: Plan: Patient with leukocytosis, Possible pneumonia on chest x-ray. CT chest showed possible pna and pneumobilia - Elevated lactate, Pro-Barrington elevated (0.69) - Blood cultures and urine culture pending - BioFire, nasal MRSA neg, likely hospital acquired - Etiology:iatrogenic pneumonia v pneumobilia, given history and chest CT pna more likely - Given low Platelet 52, elevated D-dimer>91417, low fibrinogen<50, elevated PT 51.7 and elevated aPTT 45, concern for DIC, however peripheral smear was reassuring - 05/03 DC vancomycin at ICU team's recommendation, continue Zosyn, doxycycline - 05/03 INR 5.2 hold warfarin per ICU team recommendation (2) Acute hypoxic respiratory failure: Plan: Acute hypoxic respiratory failurelikely mixed etiology in the setting of acute CHF following A-fib RVR, and possible underlying pneumonia. - CT chest showed bilateral airspace opacities and interstitial thickening possibly pna and superimposed pulmonary edema as well as a possible lesion - ABG with hypoxia respiratory alkalosis - PE unlikely given systemic anticoagulation - Careful with diuresis giving shock - Currently on high flow nasal cannula, low threshold for intubation. - Continuous O2 monitoring (3) Encephalopathy: Plan: Likely secondary to underlying sepsis. Mild elevation of BUN may be contributing. CT head unremarkable. 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 (4) Acute kidney injury: Plan: Likely prerenal in the setting of septic shock. - Maintain MAP greater than 65. - Trend BMPs. - Avoid nephrotoxins and renally adjust medications. Monitor - Careful with fluid resuscitation given sepsis 05/03 mild hyperchloremia, hypernatremia, hypokalemia at 3.1, replete with 60mEq potassium acetate (5) Acute systolic heart failure: Plan: -Random cortisol elevated (>60) -TTE 04/20: Moderate to severely reduced EF, with mild concentric hypertrophy, se jarek valvular aortic stenosis with moderate mitral regurg and elevated RV systolic pressure 40-50. - Currently maintaining MAP greater than 65 with low-dose Levophed drip. Consider central line if increased vasopressor requirement. Picc line placed this morning -Careful with fluid and resuscitation given underlying CHF/hypoxic respiratory failure (6) Atrial fibrillation with rapid ventricular response: Plan: Cardioverted 05/02 for A-fib RVR. Continuous monitoring on telemetry. Having episodes of paroxysmal atrial fibrillation ICU team started amiodarone for rate and rhythm control and metoprolol Cardioverted 2x 05/04 returned NSR (7) CAD (coronary artery disease): Plan: as above (8) Severe aortic stenosis: Plan: Cardiology recommendation for TAVR consult once stable enough to proceed on last admission. 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 as previously d/w ICU attending, for now largely monitoring situation to assume care later as pt's progress allows, but to prevent any accidental "confusing in messaging" as his care/goals of care/prognosis are being discussed with pt and family, i am standing down to [employer] [facility] social work professor to take full primary role, including with communication. severe sepsis/septic shock and type 2 VA with possible DICpneumonia is most likely source. Pneumobilia concerning, but he does not otherwise clinically appear consistent with cholangitiscontinue broad antibiotic coverage, serial exams, supportive care, follow cultures. prognosis guarded. Greatly appreciate ICU management Subjective Patient's fever, which persisted all day yesterday, broke at approximately 3:30 AM. This morning, patient is awake in bed, respirating via HFNC at 40 L/min. Patient is awake and alert. He wants to know if it is a certainty that he will improve enough to leave the hospital. He denies any new complaints. Per his son, patient was conversing in [place], a language he has not spoken since his teenage years, overnight. Otherwise, no acute events overnight. Review of Systems 2 Review of Systems: All systems reviewed & are unremarkable except as noted in HPI & below Physical Exam Physical Exam: General: no acute distress, slightly dysarthric but speaking in full sentences Resp: Respirating via HFNC HEENT: conjunctivae appear clear, no audible congestion, no swelling noted face or lips Skin: skin appears dry, normal coloration, no rash visible on exposed skin areas Neuro: alert and oriented x3, no focal deficits appreciated Psych: euthymic affect, pleasant and interactive, logical thought process Results & Data Results & Data Vital Signs (Past 12 Hours) Vital Signs Temp Pulse Pulse Resp BP Pulse Ox O2 Del Method 05/05/24 06:30 37.6 C H 78 27 H 97/74 L 100 05/05/24 05:57 37.4 C 76 29 H 96/74 L 100 05/05/24 05:30 37.4 C 79 26 H 95/64 L 100 05/05/24 05:18 37.4 C 76 28 H 104/76 100 05/05/24 04:30 37.0 C 79 29 H 100/68 99 05/05/24 04:12 37.1 C 93 H 27 H 99/58 L 73 L 05/05/24 03:48 83 28 H 100 High Flow Nasal Cannula 05/05/24 03:30 38.0 C H 86 30 H 106/65 100 05/05/24 03:03 38.0 C H 70 28 H 97/68 L 100 05/05/24 02:30 38.0 C H 75 28 H 96/74 L 100 05/05/24 02:15 38.1 C H 74 29 H 101/67 100 05/05/24 01:39 38.1 C H 84 29 H 100 05/05/24 01:38 38.1 C H 70 28 H 102/68 99 High Flow Nasal Cannula 05/05/24 01:30 102/68 05/05/24 01:27 38.2 C H 84 27 H 99 05/05/24 01:15 38.2 C H 86 21 100 05/05/24 01:09 38.2 C H 49 L 32 H 100 05/05/24 01:00 104/67 05/05/24 01:00 38.2 C H 81 26 H 104/67 100 05/05/24 00:30 38.2 C H 76 28 H 98/65 L 100 05/05/24 00:06 38.2 C H 81 30 H 100 05/05/24 00:03 38.3 C H 76 29 H 99 05/05/24 00:00 95/71 L 05/05/24 00:00 84 05/04/24 23:57 38.3 C H 82 33 H 100 05/04/24 23:51 38.3 C H 84 28 H 100 05/04/24 23:42 38.3 C H 83 29 H 95/71 L 100 05/04/24 23:39 86 30 H 100 High Flow Nasal Cannula 05/04/24 23:30 101/71 05/04/24 23:27 38.3 C H 83 33 H 96 05/04/24 23:21 38.3 C H 79 31 H 100 05/04/24 23:09 38.3 C H 82 26 H 100 05/04/24 23:08 38.3 C H 83 24 88/67 L 100 High Flow Nasal Cannula 05/04/24 22:39 38.4 C H 85 19 98 05/04/24 22:33 38.4 C H 85 27 H 101/74 99 05/04/24 22:15 38.4 C H 85 28 H 94/74 L 100 05/04/24 22:03 38.4 C H 85 34 H 104/63 99 05/04/24 21:51 38.4 C H 86 22 104/63 100 05/04/24 21:24 88 30 H 96 High Flow Nasal Cannula 05/04/24 21:21 38.4 C H 82 31 H 104/63 97 05/04/24 21:00 38.4 C H 83 37 H 97 05/04/24 20:57 38.4 C H 86 35 H 106/78 100 05/04/24 20:45 38.4 C H 83 32 H 94/66 L 100 05/04/24 20:21 38.3 C H 63 23 93/72 L 99 05/04/24 19:58 High Flow Nasal Cannula 05/04/24 19:42 38.3 C H 52 L 20 112/77 100 O2 Flow Rate FiO2 05/05/24 06:30 05/05/24 05:57 05/05/24 05:30 05/05/24 05:18 05/05/24 04:30 05/05/24 04:12 05/05/24 03:48 40 30 05/05/24 03:30 05/05/24 03:03 05/05/24 02:30 05/05/24 02:15 05/05/24 01:39 05/05/24 01:38 05/05/24 01:30 05/05/24 01:27 05/05/24 01:15 05/05/24 01:09 05/05/24 01:00 05/05/24 01:00 05/05/24 00:30 05/05/24 00:06 05/05/24 00:03 05/05/24 00:00 05/05/24 00:00 05/04/24 23:57 05/04/24 23:51 05/04/24 23:42 05/04/24 23:39 40 30 05/04/24 23:30 05/04/24 23:27 05/04/24 23:21 05/04/24 23:09 05/04/24 23:08 40 05/04/24 22:39 05/04/24 22:33 05/04/24 22:15 05/04/24 22:03 05/04/24 21:51 05/04/24 21:24 40 30 05/04/24 21:21 05/04/24 21:00 05/04/24 20:57 05/04/24 20:45 05/04/24 20:21 05/04/24 19:58 05/04/24 19:42 Resident Activity Tracking Resident Involvement: Resident Care Provided Care Provided: Adult Hospital Medicine (9) Mitral regurgitation Cardiac valve disease etiology: nonrheumatic Qualified Code(s): I34.0 - Nonrheumatic mitral (valve) insufficiency
[2024-05-05] MEDS: ERTAPENEM SODIUM 1,000 MG in SYRINGE 0 ML IV SCH (08:10)
[2024-05-05] MEDS: LINEZOLID 600 MG/300 ML BAG IV SCH (08:11)
--- NOTE | 2024-05-05 08:48 | XRay Report ---
SINGLE VIEW CHEST CLINICAL HISTORY: Pneumonia. FINDINGS: An AP, portable, upright chest radiograph is compared to study dated 05/04/2024 and correlate d with chest CT dated 05/02/2024. A right PICC line is unchanged in position. The heart is enlarged. Th ere is pulmonary vascular congestion. Multifocal bilateral airspace opacities are again seen througho ut both lungs. This is similar to yesterday. There are small pleural effusions with dependent consoli dation. No pneumothorax is seen. The skeletal structures are osteopenic. The bony thorax is grossly i ntact. Cholecystectomy clips are noted in the right upper quadrant. IMPRESSION: 1. Cardiomegaly with pulmonary vascular congestion. 2. Multifocal bilateral airspace opacities have not significantly changed from yesterday. 3. Small pleural effusions. ACT 112: Negative or not required by law. Electronically signed by: Roque Wong M.D. 05/05/2024 8:46 AM
[2024-05-05 09:15] LABS: Albumin Level 2.5 gm/dl (3.4-5.0); Bilirubin Direct 0.2 mg/dl (0-0.2); Bilirubin,Total 0.8 mg/dl (0.2-1.0); Total Protein 5.3 gm/dl (6.0-8.3)
--- NOTE | 2024-05-05 11:49 | Critical Care Progress Note ---
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 Presents to the emergency department with A-fib RVR, hypotensive, and hypoxic requiring high flow nasal cannula and vasopressor support and underwent cardioversion. Neuro - Encephalopathylikely multifactorial mild improvement: Sepsis, acute kidney injury, recent CVA. Cardiac - Shocklikely mixed etiology with underlying systolic heart failure, severe and A-fib RVR on admission requiring cardioversion. Patient likely septic from pulmonary source as well. -Emergently cardioverted on 05/02. -Suspect paroxysmal A-fib is worsened by relative hypoxia and underlying pneumonia -Continue amiodarone for rate control and hopefully rhythm control, consider conversion to p.o. when taking more adequate nutrition - 2.5 mg metoprolol every 6 hours (holding Coreg), very poor cardiac function at baseline with systolic CHF and severe aortic stenosis and severe mitral regurg would benefit from slower heart rates -Mild increase in vasoactive requirement -Does not appear to tolerate atrial fibrillation very well, at risk for emergent cardioversion: Understand risk for increase stroke however he has been supratherapeutic and his INR and feel the risks of severe ongoing cardiac dysfunction and hypotension outweigh the risks of possible embolism in the setting of cardioversion. -Cardioversion in the emergency department was completed with 1 mg of Versed and 100 J Respiratory - Acute hypoxic respiratory failurelikely mixed etiology in the setting of acute CHF following A-fib RVR, and possible underlying pneumonia. - On nasal cannula down from high flow -Patient wants aggressive measures undertaken if he continues to be hypoxic we may proceed with intubation if we cannot resolve the hemodynamic disruptions GI - Full liquid diet: Encourage high-protein intake -Discussed with patient and family placement of NG tube for supplemental feedings. I believe the patient will eventually warrant aggressive nutritional support if in line with goals Mild transaminitis: Improving -Suspect hypotension secondary to sepsis versus congestive hepatopathy RENAL/LYTES - AKIresolved -Suspect prerenal etiology of hypotension most likely secondary to inability to tolerate atrial fibrillation - Maintain MAP greater than 65. -Mild hyperchloremia and hypernatremia -hypokalemia: Potassium acetate 40 mEq -Diuresis with Diuril 500 mg twice daily today, Diamox 500 mg x 1 -Tolerated diuresis yesterday suspect patient is mildly hypervolemic to euvolemic at this time up to 4 L cumulatively - Foleystrict I's and O's -Hematuria: Will follow and provide supportive care for coagulation profile disturbances ENDO - Is currently euglycemic. ICU hyperglycemic protocol HEME - Anemia: Suspect anemia of chronic disease however continue to monitor as it is downtrending -Reviewed peripheral smear, no evidence of DIC Supratherapeutic INR: Continue to trend Hypofibrinogenemia: Suspect this is secondary to sepsis and underlying organ dysfunction: Improving -1 unit cryoprecipitate 05/03 ID - Sepsispatient with leukocytosis, -Ongoing fever and persistent leukocytosis, reculture with blood cultures, expanding coverage to Zyvox (patient unable to produce sputum specimen) - Blood cultures: No growth in 48 hours and urine culture: Repeat blood cultures today - BioFire, nasal MRSA negative - Doxycycline for atypical coverage for 7 days, completed 4 days Zosyn, now day 1 Zyvox and Invanz for presumptive pulmonary source LINES/IV ACCESS - PICC line DVT PROPHYLAXIS - SCDs, systemic anticoagulation (2) Acute hypoxic respiratory failure: (3) Severe aortic stenosis: (4) Mitral regurgitation: (5) GERD without esophagitis: (6) Acute kidney injury: (7) Acute systolic heart failure: (8) CAD (coronary artery disease): (9) Hyperlipidemia: (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 This is a life/limb threatening event. This includes time spent evaluating patient, direct bedside care, chart review, placing orders, interpretation of diagnostic studies, discussion with consultants, patient, and family members, as well as other required patient management activities. This time is exclusive of all separately billable procedures, and teaching time and separate from and in addition to any other critical care service time. Subjective Son reports patient was sleeping better overnight. Physical Exam Physical Exam: General: Awake alert oriented Skin: Warm, dry, mild acrocyanosis Head: Atraumatic Ears, nose, mouth and throat: airway patent Cardiovascular: Normal peripheral perfusion, normal sinus rhythm on bedside monitor during my evaluation Respiratory: Mild tachypnea improved compared to yesterday Gastrointestinal: Non distended Musculoskeletal: No deformity,, mild generalized anasarca Results & Data Results & Data Vital Signs (Past 12 Hours) Vital Signs Temp Pulse Pulse Resp BP Pulse Ox O2 Del Method 05/05/24 11:17 High Flow Nasal Cannula 05/05/24 11:00 28 H 98 High Flow Nasal Cannula 05/05/24 09:36 37.8 C H 88 33 H 100 05/05/24 09:32 High Flow Nasal Cannula 05/05/24 09:30 94/65 L 05/05/24 09:24 37.8 C H 79 27 H 94 05/05/24 09:00 99/62 L 05/05/24 09:00 37.7 C H 89 31 H 100 05/05/24 08:57 37.7 C H 93 H 20 97 05/05/24 08:51 37.7 C H 87 29 H 93 05/05/24 08:45 37.7 C H 89 33 H 97 05/05/24 08:42 37.7 C H 81 21 97 05/05/24 08:33 37.7 C H 87 24 95 05/05/24 08:15 37.7 C H 75 35 H 98 05/05/24 08:06 37.7 C H 88 26 H 98 05/05/24 08:03 37.7 C H 90 24 86 L 05/05/24 07:50 90 28 H 96 High Flow Nasal Cannula 05/05/24 07:45 37.6 C H 91 H 29 H 100 05/05/24 07:42 37.6 C H 87 30 H 85 L 05/05/24 07:36 37.6 C H 85 46 H 97 05/05/24 07:30 92/68 L 05/05/24 07:09 37.6 C H 56 L 24 100 05/05/24 07:06 37.6 C H 74 31 H 99 05/05/24 07:00 37.6 C H 75 31 H 95 05/05/24 07:00 99/55 L 05/05/24 06:51 37.6 C H 82 32 H 97 05/05/24 06:45 37.6 C H 68 28 H 100 05/05/24 06:30 37.6 C H 78 27 H 97/74 L 100 05/05/24 05:57 37.4 C 76 29 H 96/74 L 100 05/05/24 05:30 37.4 C 79 26 H 95/64 L 100 05/05/24 05:18 37.4 C 76 28 H 104/76 100 05/05/24 04:30 37.0 C 79 29 H 100/68 99 05/05/24 04:12 37.1 C 93 H 27 H 99/58 L 73 L 05/05/24 03:48 83 28 H 100 High Flow Nasal Cannula 05/05/24 03:30 38.0 C H 86 30 H 106/65 100 05/05/24 03:03 38.0 C H 70 28 H 97/68 L 100 05/05/24 02:30 38.0 C H 75 28 H 96/74 L 100 05/05/24 02:15 38.1 C H 74 29 H 101/67 100 05/05/24 01:39 38.1 C H 84 29 H 100 05/05/24 01:38 38.1 C H 70 28 H 102/68 99 High Flow Nasal Cannula 05/05/24 01:30 102/68 05/05/24 01:27 38.2 C H 84 27 H 99 05/05/24 01:15 38.2 C H 86 21 100 05/05/24 01:09 38.2 C H 49 L 32 H 100 05/05/24 01:00 104/67 05/05/24 01:00 38.2 C H 81 26 H 104/67 100 05/05/24 00:30 38.2 C H 76 28 H 98/65 L 100 05/05/24 00:06 38.2 C H 81 30 H 100 05/05/24 00:03 38.3 C H 76 29 H 99 05/05/24 00:00 95/71 L 05/05/24 00:00 84 05/04/24 23:57 38.3 C H 82 33 H 100 05/04/24 23:51 38.3 C H 84 28 H 100 05/04/24 23:42 38.3 C H 83 29 H 95/71 L 100 05/04/24 23:39 86 30 H 100 High Flow Nasal Cannula O2 Flow Rate FiO2 05/05/24 11:17 6 05/05/24 11:00 35 45 05/05/24 09:36 05/05/24 09:32 05/05/24 09:30 05/05/24 09:24 05/05/24 09:00 05/05/24 09:00 05/05/24 08:57 05/05/24 08:51 05/05/24 08:45 05/05/24 08:42 05/05/24 08:33 05/05/24 08:15 05/05/24 08:06 05/05/24 08:03 05/05/24 07:50 40 50 05/05/24 07:45 05/05/24 07:42 05/05/24 07:36 05/05/24 07:30 05/05/24 07:09 05/05/24 07:06 05/05/24 07:00 05/05/24 07:00 05/05/24 06:51 05/05/24 06:45 05/05/24 06:30 05/05/24 05:57 05/05/24 05:30 05/05/24 05:18 05/05/24 04:30 05/05/24 04:12 05/05/24 03:48 40 30 05/05/24 03:30 05/05/24 03:03 05/05/24 02:30 05/05/24 02:15 05/05/24 01:39 05/05/24 01:38 05/05/24 01:30 05/05/24 01:27 05/05/24 01:15 05/05/24 01:09 05/05/24 01:00 05/05/24 01:00 05/05/24 00:30 05/05/24 00:06 05/05/24 00:03 05/05/24 00:00 05/05/24 00:00 05/04/24 23:57 05/04/24 23:51 05/04/24 23:42 05/04/24 23:39 40 30 Critical Care Results & Data Vital Signs (Past 12 Hours) Vital Signs Temp Pulse Pulse Resp BP Pulse Ox O2 Del Method 05/05/24 11:17 High Flow Nasal Cannula 05/05/24 11:00 28 H 98 High Flow Nasal Cannula 05/05/24 09:36 37.8 C H 88 33 H 100 05/05/24 09:32 High Flow Nasal Cannula 05/05/24 09:30 94/65 L 05/05/24 09:24 37.8 C H 79 27 H 94 05/05/24 09:00 99/62 L 05/05/24 09:00 37.7 C H 89 31 H 100 05/05/24 08:57 37.7 C H 93 H 20 97 05/05/24 08:51 37.7 C H 87 29 H 93 05/05/24 08:45 37.7 C H 89 33 H 97 05/05/24 08:42 37.7 C H 81 21 97 05/05/24 08:33 37.7 C H 87 24 95 05/05/24 08:15 37.7 C H 75 35 H 98 05/05/24 08:06 37.7 C H 88 26 H 98 05/05/24 08:03 37.7 C H 90 24 86 L 05/05/24 07:50 90 28 H 96 High Flow Nasal Cannula 05/05/24 07:45 37.6 C H 91 H 29 H 100 05/05/24 07:42 37.6 C H 87 30 H 85 L 05/05/24 07:36 37.6 C H 85 46 H 97 05/05/24 07:30 92/68 L 05/05/24 07:09 37.6 C H 56 L 24 100 05/05/24 07:06 37.6 C H 74 31 H 99 05/05/24 07:00 37.6 C H 75 31 H 95 05/05/24 07:00 99/55 L 05/05/24 06:51 37.6 C H 82 32 H 97 05/05/24 06:45 37.6 C H 68 28 H 100 05/05/24 06:30 37.6 C H 78 27 H 97/74 L 100 05/05/24 05:57 37.4 C 76 29 H 96/74 L 100 05/05/24 05:30 37.4 C 79 26 H 95/64 L 100 05/05/24 05:18 37.4 C 76 28 H 104/76 100 05/05/24 04:30 37.0 C 79 29 H 100/68 99 05/05/24 04:12 37.1 C 93 H 27 H 99/58 L 73 L 05/05/24 03:48 83 28 H 100 High Flow Nasal Cannula 05/05/24 03:30 38.0 C H 86 30 H 106/65 100 05/05/24 03:03 38.0 C H 70 28 H 97/68 L 100 05/05/24 02:30 38.0 C H 75 28 H 96/74 L 100 05/05/24 02:15 38.1 C H 74 29 H 101/67 100 05/05/24 01:39 38.1 C H 84 29 H 100 05/05/24 01:38 38.1 C H 70 28 H 102/68 99 High Flow Nasal Cannula 05/05/24 01:30 102/68 05/05/24 01:27 38.2 C H 84 27 H 99 05/05/24 01:15 38.2 C H 86 21 100 05/05/24 01:09 38.2 C H 49 L 32 H 100 05/05/24 01:00 104/67 05/05/24 01:00 38.2 C H 81 26 H 104/67 100 05/05/24 00:30 38.2 C H 76 28 H 98/65 L 100 05/05/24 00:06 38.2 C H 81 30 H 100 05/05/24 00:03 38.3 C H 76 29 H 99 05/05/24 00:00 95/71 L 05/05/24 00:00 84 05/04/24 23:57 38.3 C H 82 33 H 100 05/04/24 23:51 38.3 C H 84 28 H 100 05/04/24 23:42 38.3 C H 83 29 H 95/71 L 100 05/04/24 23:39 86 30 H 100 High Flow Nasal Cannula O2 Flow Rate FiO2 05/05/24 11:17 6 05/05/24 11:00 35 45 05/05/24 09:36 05/05/24 09:32 05/05/24 09:30 05/05/24 09:24 05/05/24 09:00 05/05/24 09:00 05/05/24 08:57 05/05/24 08:51 05/05/24 08:45 05/05/24 08:42 05/05/24 08:33 05/05/24 08:15 05/05/24 08:06 05/05/24 08:03 05/05/24 07:50 40 50 05/05/24 07:45 05/05/24 07:42 05/05/24 07:36 05/05/24 07:30 05/05/24 07:09 05/05/24 07:06 05/05/24 07:00 05/05/24 07:00 05/05/24 06:51 05/05/24 06:45 05/05/24 06:30 05/05/24 05:57 05/05/24 05:30 05/05/24 05:18 05/05/24 04:30 05/05/24 04:12 05/05/24 03:48 40 30 05/05/24 03:30 05/05/24 03:03 05/05/24 02:30 05/05/24 02:15 05/05/24 01:39 05/05/24 01:38 05/05/24 01:30 05/05/24 01:27 05/05/24 01:15 05/05/24 01:09 05/05/24 01:00 05/05/24 01:00 05/05/24 00:30 05/05/24 00:06 05/05/24 00:03 05/05/24 00:00 05/05/24 00:00 05/04/24 23:57 05/04/24 23:51 05/04/24 23:42 05/04/24 23:39 40 30 Lab & Micro Results (Past 24 Hours) RBC 3.29 M/uL (4.70-6.10) L 05/05/24 WBC 18.85 K/ul (4.8-10.8) H 05/05/24 Hgb 9.8 g/dl (14.0-18.0) L 05/05/24 Hct 30.9 % (42.0-52.0) L 05/05/24 MCV 93.9 fL (80.0-100.0) 05/05/24 MCH 29.8 pg (25.0-34.0) 05/05/24 MCHC 31.7 g/dL (32.0-36.0) L 05/05/24 RDW Standard Deviation 53.6 fL (36.4-46.3) H 05/05/24 RDW Coefficient of Variation 15.5 % (11.5-14.5) H 05/05/24 Plt Count 45 K/uL (130-400) L 05/05/24 Nucleated Red Blood Cells % (auto) 0.4 % 05/05 Nucleated RBC Absolute Count (auto) 0.08 K/uL (0.00-0.12) 0 05/05/24 Neutrophils (%) (Auto) 94.0 % 05/05/24 Lymphocytes (%) (Auto) 3.7 % 05/05/24 Monocytes # (Auto) 0.28 K/uL (0.11-0.59) 05/05/24 Eosinophils # (Auto) 0.00 K/uL (0.00-0.50) 05/05/24 Immature Granulocyte % (Auto) 0.7 % 05/05/24 Neutrophils # (Auto) 17.73 K/uL (1.40-6.50) H 05/05/24 Lymphocytes # (Auto) 0.69 K/uL (1.20-3.40) L 05/05/24 Monocytes # (Auto) 0.28 K/uL (0.11-0.59) 05/05/24 Eosinophils # (Auto) 0.00 K/uL (0.00-0.50) 05/05/24 Basophils # (Auto) 0.02 K/uL (0.00-0.20) 05/05/24 Immature Granulocyte # (Auto) 0.13 K/uL (0.01-0.20) 4 Polychromasia 2+ 05/05/24 Anisocytosis Present 05/05/24 Na 147 mmol/L (136-145) H 05/05/24 K 3.3 mmol/L (3.5-5.1) L 05/05/24 Cl 112 mmol/L (98-107) H 05/05/24 CO2 27 mmol/L (21-32) 05/05/24 Anion Gap 8 (3-11) 05/05/24 BUN 50 mg/dl (6-23) H 05/05/24 Creatinine 1.01 mg/dl (0.6-1.4) 05/05/24 Estimated GFR ( Amer) 79.9 ml/min 05/05/24 Estimated GFR (Non-Af Amer) 68.9 ml/min 05/05/24 BUN/Creatinine Ratio 49.5 (10-20) H 05/05/24 Glu 137 mg/dl (70-99(Fasting)) H 05/05/24 Ca 7.9 mg/dl (8.6-10.3) L 05/05/24 Phosphorus Level 3.1 mg/dl (2.5-4.9) 05/05/24 Total Bilirubin 0.8 mg/dl (0.2-1.0) 05/05/24 Direct Bilirubin 0.2 mg/dl (0-0.2) 05/05/24 AST 32 U/L (13-39) 05/05/24 ALT 69 U/L (7-52) H 05/05/24 Alkaline Phosphatase 83 U/L (34-104) 05/05/24 TP 5.3 gm/dl (6.0-8.3) L 05/05/24 Albumin 2.5 gm/dl (3.4-5.0) L 05/05/24 Mg 2.7 mg/dl (1.7-2.4) H 05/05/24 03:52 Calcium Level 7.9 mg/dl (8.6-10.3) L 05/05/24 03:52 Prothromb Time International Ratio 4.4 (0.9-1.1) H 05/05/24 03 :52 Venous Blood pH 7.45 (7.36-7.41) H 05/04/24 18:40 Venous Blood Partial Pressure CO2 38 mmHg (38-50) 05/04/24 18:4 0 Venous Blood Partial Pressure O2 27 mmHg 05/04/24 18:40 Venous Blood HCO3 26 mmol/L 05/04/24 18:40 Venous Blood Base Excess 2.4 mEq/L 05/04/24 18:40 Venous Blood Oxygen Saturation < 60.0 % 05/04/24 18:40 Microbiology 05/02/24 05:35 Urine Culture - Final Urine,Indwelling Cath No growth - less than 1,000 colonies/mL. Diagnostic Findings (Past 24 Hours) Chest X-Ray 05/05/24 08:32 SINGLE VIEW CHEST CLINICAL HISTORY: Pneumonia. FINDINGS: An AP, portable, upright chest radiograph is compared to study dated 05/04/2024 and correlated with chest CT dated 05/02/2024. A right PICC line is unchanged in position. The heart is enlarged. There is pulmonary vascular congestion. Multifocal bilateral airspace opacities are again seen throughout both lungs. This is similar to yesterday. There are small pleural effusions with dependent consolidation. No pneumothorax is seen. The skeletal structures are osteopenic. The bony thorax is grossly intact. Cholecystectomy clips are noted in the right upper quadrant. IMPRESSION: 1. Cardiomegaly with pulmonary vascular congestion. 2. Multifocal bilateral airspace opacities have not significantly changed from yesterday. 3. Small pleural effusions. ACT 112: Negative or not required by law. Electronically signed by: Roque Wong M.D. 05/05/2024 8:46 AM I & O Totals 24 Hours 05/04/24 05/05/24 05/06/24 06:59 06:59 06:59 Intake Total 4067.462 / 4067.462 2009.649 / 2009.649 655.52 / 655.52 Output Total 2024 / 2024 600 / 600 250 / 250 Balance 2042.462 / 2042.462 1410.649 / 1410.649 405.52 / 405.52 Cumulative 05/02/24 03:34 thru 05/05/24 11:12 Intake Total 8627.001 Output Total 4325 Balance 4302.001 RT Ventilator Mngmt (Last Documented) Ventilator Ordered Settings Respiratory Rate 28 05/05/24 11:00 Fraction of Inspired Oxygen 45 05/05/24 11:00 Ventilator - PT Measurements Respiratory Rate 28 Coding Level of Care Code 21542 CRITICAL CARE 1ST 30-74M Diagnoses Septic shock A41.9; R65.21 Acute hypoxic respiratory failure J96.01 Severe aortic stenosis I35.0 Nonrheumatic mitral valve regurgitation I34.0 Cardiac valve disease etiology: nonrheumatic GERD without esophagitis K21.9 Acute kidney injury N17.9 Acute systolic heart failure I50.21 CAD (coronary artery disease) I25.10 Hyperlipidemia E78.5 Dissection of carotid artery I77.71 (4) Mitral regurgitation Cardiac valve disease etiology: nonrheumatic Qualified Code(s): I34.0 - Nonrheumatic mitral (valve) insufficiency
[2024-05-05] MEDS: CHLOROTHIAZIDE SODIUM 500 MG in DEXTROSE 5% 50 ML IV SCH (12:36)
[2024-05-05] MEDS: acetaZOLAMIDE 500 MG in SYRINGE 0 ML IV STA (12:37)
[2024-05-05] MEDS: POTASSIUM ACETATE/NSS 10 MEQ/105 ML BAG IV SCH (12:37)
[2024-05-05] MEDS: MoRPHine SULFATE 2 MG/ML CARP IV STA (20:26)
[2024-05-05] MEDS: METOPROLOL TARTRATE 1 MG/ML VIAL IV ONE (22:28)
[2024-05-06 04:35] LABS: Hematocrit (blood only) 28.8 % (42.0-52.0); Hemoglobin 8.9 g/dl (14.0-18.0); Mean Corpuscular Hemoglobin 29.2 pg (25.0-34.0); Mean Corpuscular Hgb Conc 30.9 g/dL (32.0-36.0); Mean Corpuscular Volume 94.4 fL (80.0-100.0); Nucleated RBC # (auto) 0.11 K/uL (0.00-0.12); Nucleated RBC % (auto) 0.6 %; Platelet Count 53 K/uL (130-400); RDW Coefficient of Variation 15.3 % (11.5-14.5); RDW Standard Deviation 53.1 fL (36.4-46.3); Red Blood Count 3.05 M/uL (4.70-6.10); White Blood Count 17.17 K/ul (4.8-10.8)
[2024-05-06 04:36] LABS: BUN Creatinine Ratio 43.7 (10-20); Calcium 7.4 mg/dl (8.6-10.3); Creatinine Clr Calc Pharmacy 65.5 ml/min; Est GFR (African American) 93.2 ml/min; Est GFR (Non-African American) 80.4 ml/min; Potassium 2.9 mmol/L (3.5-5.1)
[2024-05-06 04:40] LABS: Basophils # (auto) 0.02 K/uL (0.00-0.20); Basophils % (auto) 0.1 %; Hypochromasia Present; Immature Granulocytes # (auto) 0.08 K/uL (0.01-0.20); Immature Granulocytes % (auto) 0.5 %; Lymphocytes # (auto) 0.68 K/uL (1.20-3.40); Monocytes # (auto) 0.39 K/uL (0.11-0.59); Monocytes % (auto) 2.3 %; Neutrophils % (auto) 93.1 %; Polychromasia 1+
[2024-05-06 04:45] LABS: INR 3.8 (0.9-1.1); Prothrombin Time 36.9 Seconds (9.0-12.0)
[2024-05-06] MEDS: POTASSIUM CHLORIDE / WTR 10 MEQ/100 ML PLCT IV SCH (05:11)
[2024-05-06] MEDS: POTASSIUM CHLORIDE CRTAB 20 MEQ TABCR PO STA (05:11)
[2024-05-06 05:24] LABS: Magnesium 2.4 mg/dl (1.7-2.4); Phosphorus 2.7 mg/dl (2.5-4.9)
[2024-05-06 06:10] LABS: Fibrinogen 92 mg/dl (184-400)
--- NOTE | 2024-05-06 06:55 | Hospitalist Progress Note ---
Date of Service May 06, 2024 Assessment & Plan (1) Septic shock: Plan: Patient with leukocytosis, Possible pneumonia on chest x-ray. CT chest showed possible pna and pneumobilia - Elevated lactate, Pro-Barrington elevated (0.69) - Blood cultures and urine culture pending - BioFire, nasal MRSA neg, likely hospital acquired - Etiology:iatrogenic pneumonia v pneumobilia, given history and chest CT pna more likely - Given low Platelet 52, elevated D-dimer>20439, low fibrinogen<50, elevated PT 51.7 and elevated aPTT 45, concern for DIC, however peripheral smear was reassuring - 05/03 DC vancomycin at ICU team's recommendation, continue Zosyn, doxycycline - 05/03 INR 5.2 hold warfarin per ICU team recommendation (2) Acute hypoxic respiratory failure: Plan: Acute hypoxic respiratory failurelikely mixed etiology in the setting of acute CHF following A-fib RVR, and possible underlying pneumonia. - CT chest showed bilateral airspace opacities and interstitial thickening possibly pna and superimposed pulmonary edema as well as a possible lesion - ABG with hypoxia respiratory alkalosis - PE unlikely given systemic anticoagulation - Careful with diuresis giving shock - Currently on high flow nasal cannula, low threshold for intubation. - Continuous O2 monitoring (3) Encephalopathy: Plan: Likely secondary to underlying sepsis. Mild elevation of BUN may be contributing. CT head unremarkable. 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 (4) Acute kidney injury: Plan: Likely prerenal in the setting of septic shock. - Maintain MAP greater than 65. - Trend BMPs. - Avoid nephrotoxins and renally adjust medications. Monitor - Careful with fluid resuscitation given sepsis 05/03 mild hyperchloremia, hypernatremia, hypokalemia at 3.1, replete with 60mEq potassium acetate (5) Acute systolic heart failure: Plan: -Random cortisol elevated (>60) -TTE 04/20: Moderate to severely reduced EF, with mild concentric hypertrophy, se jarek valvular aortic stenosis with moderate mitral regurg and elevated RV systolic pressure 40-50. - Currently maintaining MAP greater than 65 with low-dose Levophed drip. Consider central line if increased vasopressor requirement. Picc line placed this morning -Careful with fluid and resuscitation given underlying CHF/hypoxic respiratory failure (6) Atrial fibrillation with rapid ventricular response: Plan: Cardioverted 05/02 for A-fib RVR. Continuous monitoring on telemetry. Having episodes of paroxysmal atrial fibrillation ICU team started amiodarone for rate and rhythm control and metoprolol Cardioverted 2x 05/04 returned NSR (7) CAD (coronary artery disease): Plan: as above (8) Severe aortic stenosis: Plan: Cardiology recommendation for TAVR consult once stable enough to proceed on last admission. 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 as previously d/w ICU attending, for now largely monitoring situation to assume care later as pt's progress allows, but to prevent any accidental "confusing in messaging" as his care/goals of care/prognosis are being discussed with pt and family, i am standing down to [facility] kitchen steward/stewardess to take full primary role, including with communication. severe sepsis/septic shock and type 2 CA with possible DICpneumonia is most likely source. Pneumobilia concerning, but he does not otherwise clinically appear consistent with cholangitiscontinue broad antibiotic coverage, serial exams, supportive care, follow cultures. family discussing goals of care Subjective Patient awake and alert on arrival to bedside. Dressing was being changed by nursing, so did not say much. Per nursing, PICC line was removed due to swell ing and bruising of his right upper extremity. Review of Systems Review of Systems: All systems reviewed & are unremarkable except as noted in HPI & below Physical Exam Physical Exam: General: no acute distress Resp: High flow nasal cannula HEENT: conjunctivae appear clear, no audible congestion, no swelling noted face or lips Skin: skin appears dry, diffuse reddish-purple bruising on right forearm and palmar aspect of right hand, hands appear swollen bilaterally. Neuro: No focal deficits appreciated Results & Data Results & Data Vital Signs (Past 12 Hours) Vital Signs Temp Pulse Resp BP BP BP Pulse Ox 05/06/24 06:33 37.7 C H 82 41 H 100 05/06/24 06:18 37.7 C H 81 39 H 99 06/09/24 05:30 37.6 C H 85 30 H 94 05/06/24 05:30 106/62 05/06/24 05:09 37.6 C H 88 37 H 98 05/06/24 04:33 37.6 C H 77 30 H 96/58 L 97 05/06/24 04:03 37.6 C H 74 30 H 95 05/06/24 04:02 80/64 L 05/06/24 03:48 37.6 C H 96 H 32 H 97 05/06/24 03:36 37.6 C H 101 H 20 100 05/06/24 03:06 37.5 C 91 H 33 H 81 L 05/06/24 03:00 101/64 05/06/24 02:50 97/63 L 05/06/24 02:48 37.6 C H 69 28 H 100 05/06/24 02:33 37.5 C 92 H 22 91 05/06/24 02:30 97/63 L 05/06/24 02:27 37.6 C H 73 23 100 05/06/24 02:24 94/60 L 05/06/24 02:21 37.6 C H 109 H 21 99 05/06/24 01:36 37.5 C 88 29 H 100 05/06/24 01:33 106/53 L 05/06/24 01:21 37.5 C 85 29 H 100 05/06/24 01:03 37.6 C H 95 H 28 H 100 05/06/24 01:03 94/57 L 05/06/24 00:45 37.5 C 78 28 H 100 05/06/24 00:30 37.5 C 71 30 H 100 05/06/24 00:18 37.5 C 77 31 H 100 05/06/24 00:09 37.5 C 73 30 H 100 05/06/24 00:03 92/66 L 05/06/24 00:00 81 05/05/24 23:51 37.6 C H 72 25 H 100 05/05/24 23:36 37.6 C H 77 39 H 100 05/05/24 23:00 37.6 C H 76 33 H 91/62 L 100 05/05/24 22:51 37.6 C H 81 38 H 98 05/05/24 22:50 94/57 L 05/05/24 22:43 78 94/57 L 05/05/24 22:33 37.7 C H 96 H 20 99 05/05/24 22:30 94/57 L 05/05/24 22:28 91 H 101/62 05/05/24 22:21 37.7 C H 89 36 H 86 L 05/05/24 22:18 37.8 C H 88 29 H 96 05/05/24 22:09 37.8 C H 92 H 32 H 100 05/05/24 22:00 101/62 05/05/24 21:56 104/66 05/05/24 21:54 37.8 C H 92 H 20 100 05/05/24 21:31 28 H 89/69 L 05/05/24 21:15 37.9 C H 80 31 H 100 05/05/24 21:01 85/59 L 05/05/24 21:00 37.9 C H 83 40 H 97 05/05/24 20:33 38.0 C H 89 31 H 100 05/05/24 20:30 110/70 05/05/24 20:18 38.0 C H 92 H 34 H 96 05/05/24 20:01 89/65 L 05/05/24 20:01 89/65 L 05/05/24 19:51 38.1 C H 85 25 H 96 05/05/24 19:45 05/05/24 19:31 99/64 L 05/05/24 19:30 38.1 C H 89 33 H 100 05/05/24 19:04 37.1 C 103/61 05/05/24 19:03 38.1 C H 84 28 H 94 O2 Del Method O2 Flow Rate 05/06/24 06:33 05/06/24 06:18 05/06/24 05:30 05/06/24 05:30 05/06/24 05:09 05/06/24 04:33 05/06/24 04:03 05/06/24 04:02 05/06/24 03:48 05/06/24 03:36 05/06/24 03:06 05/06/24 03:00 05/06/24 02:50 05/06/24 02:48 05/06/24 02:33 05/06/24 02:30 05/06/24 02:27 05/06/24 02:24 05/06/24 02:21 05/06/24 01:36 05/06/24 01:33 05/06/24 01:21 05/06/24 01:03 05/06/24 01:03 05/06/24 00:45 05/06/24 00:30 05/06/24 00:18 05/06/24 00:09 05/06/24 00:03 05/06/24 00:00 05/05/24 23:51 05/05/24 23:36 05/05/24 23:00 05/05/24 22:51 05/05/24 22:50 05/05/24 22:43 05/05/24 22:33 05/05/24 22:30 05/05/24 22:28 05/05/24 22:21 05/05/24 22:18 05/05/24 22:09 05/05/24 22:00 05/05/24 21:56 05/05/24 21:54 05/05/24 21:31 05/05/24 21:15 05/05/24 21:01 05/05/24 21:00 05/05/24 20:33 05/05/24 20:30 05/05/24 20:18 05/05/24 20:01 05/05/24 20:01 05/05/24 19:51 05/05/24 19:45 High Flow Nasal Cannula 6 05/05/24 19:31 05/05/24 19:30 05/05/24 19:04 05/05/24 19:03 Resident Activity Tracking Resident Involvement: Resident Care Provided Care Provided: Adult [facility] Medicine (9) Mitral regurgitation Cardiac valve disease etiology: nonrheumatic Qualified Code(s): I34.0 - Nonrheumatic mitral (valve) insufficiency
--- NOTE | 2024-05-06 08:18 | XRay Report ---
SINGLE VIEW CHEST CLINICAL HISTORY: Pneumonia. FINDINGS: 2 AP, portable, upright chest radiographs are compared to study dated 05/05/2024 and correlat ed with chest CT dated 05/02/2024. A right PICC line is unchanged in position. The heart is enlarged. T here is pulmonary vascular congestion. Multifocal bilateral airspace opacities are again seen through out both lungs. This is similar to yesterday. There are small pleural effusions with dependent consol idation. No pneumothorax is seen. The skeletal structures are osteopenic. The bony thorax is grossly intact. Cholecystectomy clips are noted in the right upper quadrant. IMPRESSION: 1. Cardiomegaly with pulmonary vascular congestion. 2. Multifocal bilateral airspace opacities have not significantly changed from yesterday. 3. Small pleural effusions. ACT 112: Negative or not required by law. Electronically signed by: Roque Wong M.D. 05/06/2024 8:17 AM
--- NOTE | 2024-05-06 09:03 | Critical Care Progress Note ---
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 Neuro - Encephalopathy multifactorial mild improvement: Sepsis, acute kidney injury, recent CVA. Cardiac - Shockongoing: Mixed etiology with underlying systolic heart failure, severe and A-fib RVR on admission requiring cardioversion. Patient likely septic from pulmonary source as well. -Emergently cardioverted on 05/02. -Does not tolerate atrial fibrillation well -Continue amiodarone for rate control and hopefully rhythm control, consider conversion to p.o. when taking more adequate nutrition -Continue metoprolol 2.5 mg every 6 hours IV: Coreg has antihypertensive properties and patient still requiring vasoactive's -Does not appear to tolerate atrial fibrillation very well, at risk for emergent cardioversion: Understand risk for increase stroke however he has been supratherapeutic and his INR and feel the risks of severe ongoing cardiac dysfunction and hypotension outweigh the risks of possible embolism in the setting of cardioversion. -Cardioversion in the emergency department was completed with 1 mg of Versed and 100 J Coronary artery disease Severe aortic stenosis Respiratory - Acute hypoxic respiratory failure: Mild improvement: Resolved acute CHF following A-fib RVR; however, strongly suggest underlying pneumonia. - On nasal cannula down from high flow -Patient wants aggressive measures undertaken if he continues to be hypoxic we may proceed with intubation if we cannot resolve the hemodynamic disruptions GI - Full liquid diet: Encourage high-protein intake -Discussed with patient and family placement of NG tube for supplemental feedings: Continue to hold. I believe the patient will eventually warrant aggressive nutritional support if in line with goals Mild transaminitis: Improving -Suspect hypotension secondary to sepsis versus congestive hepatopathy RENAL/LYTES - AKIresolved -Suspect prerenal etiology of hypotension most likely secondary to inability to tolerate atrial fibrillation Hyperchloremia and hypernatremia: Resolved with diuril Hypokalemia: Replacing with oral and IV potassium -Patient's global balance continues to increase -Will attempt to concentrate medications - Foleystrict I's and O's -Hematuria: Will follow and provide supportive care for coagulation profile disturbances ENDO - Is currently euglycemic. ICU hyperglycemic protocol HEME - Anemia: Suspect anemia of chronic disease however continue to monitor as it is downtrending - Reviewed peripheral smear, no evidence of DIC on 05/02 Supratherapeutic INR: Continue to trend Hypofibrinogenemia: Improving -1 unit cryoprecipitate 05/03 Venous thromboembolism: Believe the patient has now progressed along the spe ctrum into DIC as he has been supratherapeutic and his INR but now has upper extremity DVTs Disseminated intravascular coagulation: No evidence of bleeding at this time, supportive management ID - Sepsispatient with leukocytosis, - Ongoing fever and persistent leukocytosis, reculture with blood cultures, expanding coverage to Zyvox (patient unable to produce sputum specimen) - Blood cultures: No growth in 48 hours and urine culture: Repeat blood cultures today - BioFire, nasal MRSA negative - Doxycycline for atypical coverage for 7 days, completed 4 days Zosyn, now day 2 Zyvox and Invanz for presumptive pulmonary source -Unable to sample pulmonary source: Opting to continue to allow patient interaction versus intubation -Blood cultures remain negative LINES/IV ACCESS - PICC line: Awaiting right upper extremity venous and arterial duplex -PICC team noted deep left noncompressible basilic vein DVT when scanning for additional vascular access points -Consider transition to central venous catheter DVT PROPHYLAXIS - SCDs, systemic anticoagulation Disposition: ICU Prognosis: I believe the patient continues to slowly decompensate. Patient is not taking much in terms of volitional nutrition. Appear to have nadired in terms of improvement of cardiovascular status, midodrine probably not successful as patient has severe aortic stenosis prohibiting much effect on afterload. Given new venous thromboembolism and need for advanced vascular access I would be in agreement if patient and family opt towards moving to comfort directed care versus care for care. While there are small improvements in some organ systems others decompensate, therefore without significant improvements I am concerned the patient is headed towards a poor prognosis. More aggressive interventions could be entertained; however, patient and family have opted against these at the present time and I am in agreement as this will likely not allow the patient to interact and I am doubtful they would ultimately be effective to change patient's trajectory. Had discussion with son and regarding findings. Now has extensive venous thrombi and arterial thrombi. Discussed advanced access and difficulties. Do not want to proceed with CVC, continue infusions with US guided IV. Waiting for additional family to arrive at bedside; however, family expressed that it may be time to transition to comfort directed care. At this time given higher risks, not proceeding with invasive procedures. Will possibly re-address code status in near future. Family understood inability to obtain NIBP pressures and arterial line contraindicated given DIC and arterial thrombi. Continue current treatment without invasive monitoring per family wishes. 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 This is a life/limb threatening event. This includes time spent evaluating patient, direct bedside care, chart review, placing orders, interpretation of diagnostic studies, discussion with consultants, patient, and/or family members regarding treatment decisions, as well as other required patient management activities. This time is exclusive of all separately billable procedures, and teaching time and separate from and in addition to any other critical care service time. Subjective No significant overnight events Physical Exam Physical Exam: General: Awake alert oriented Skin: Cool, dry, Head: Atraumatic Ears, nose, mouth and throat: airway patent Cardiovascular: Normal peripheral perfusion, normal sinus rhythm on bedside monitor during my evaluation Respiratory: Mild tachypnea still continuing to speak in full sentences without difficulty Gastrointestinal: Non distended Musculoskeletal: Right upper extremity dusky fingers with poor capillary refill, left upper extremity 1+ pitting edema Results & Data Results & Data Vital Signs (Past 12 Hours) Vital Signs Temp Pulse Resp BP BP BP Pulse Ox 05/06/24 06:33 37.7 C H 82 41 H 100 05/06/24 06:18 37.7 C H 81 39 H 99 05/06/24 05:30 37.6 C H 85 30 H 94 05/06/24 05:30 106/62 05/06/24 05:09 37.6 C H 88 37 H 98 05/06/24 04:33 37.6 C H 77 30 H 96/58 L 97 05/06/24 04:03 37.6 C H 74 30 H 95 05/06/24 04:02 80/64 L 05/06/24 03:48 37.6 C H 96 H 32 H 97 05/06/24 03:36 37.6 C H 101 H 20 100 05/06/24 03:06 37.5 C 91 H 33 H 81 L 05/06/24 03:00 101/64 05/06/24 02:50 97/63 L 05/06/24 02:48 37.6 C H 69 28 H 100 05/06/24 02:33 37.5 C 92 H 22 91 05/06/24 02:30 97/63 L 05/06/24 02:27 37.6 C H 73 23 100 05/06/24 02:24 94/60 L 05/06/24 02:21 37.6 C H 109 H 21 99 05/06/24 01:36 37.5 C 88 29 H 100 05/06/24 01:33 106/53 L 05/06/24 01:21 37.5 C 85 29 H 100 05/06/24 01:03 37.6 C H 95 H 28 H 100 05/06/24 01:03 94/57 L 05/06/24 00:45 37.5 C 78 28 H 100 05/06/24 00:30 37.5 C 71 30 H 100 05/06/24 00:18 37.5 C 77 31 H 100 05/06/24 00:09 37.5 C 73 30 H 100 05/06/24 00:03 92/66 L 05/06/24 00:00 81 05/05/24 23:51 37.6 C H 72 25 H 100 05/05/24 23:36 37.6 C H 77 39 H 100 05/05/24 23:00 37.6 C H 76 33 H 91/62 L 100 05/05/24 22:51 37.6 C H 81 38 H 98 05/05/24 22:50 94/57 L 05/05/24 22:43 78 94/57 L 05/05/24 22:33 37.7 C H 96 H 20 99 05/05/24 22:30 94/57 L 05/05/24 22:28 91 H 101/62 05/05/24 22:21 37.7 C H 89 36 H 86 L 05/05/24 22:18 37.8 C H 88 29 H 96 05/05/24 22:09 37.8 C H 92 H 32 H 100 05/05/24 22:00 101/62 05/05/24 21:56 104/66 05/05/24 21:54 37.8 C H 92 H 20 100 05/05/24 21:31 28 H 89/69 L 05/05/24 21:15 37.9 C H 80 31 H 100 05/05/24 21:01 85/59 L 05/05/24 21:00 37.9 C H 83 40 H 97 Critical Care Results & Data Vital Signs (Past 12 Hours) Vital Signs Temp Pulse Resp BP BP BP Pulse Ox 05/06/24 06:33 37.7 C H 82 41 H 100 05/06/24 06:18 37.7 C H 81 39 H 99 05/06/24 05:30 37.6 C H 85 30 H 94 05/06/24 05:30 106/62 05/06/24 05:09 37.6 C H 88 37 H 98 05/06/24 04:33 37.6 C H 77 30 H 96/58 L 97 05/06/24 04:03 37.6 C H 74 30 H 95 05/06/24 04:02 80/64 L 05/06/24 03:48 37.6 C H 96 H 32 H 97 05/06/24 03:36 37.6 C H 101 H 20 100 05/06/24 03:06 37.5 C 91 H 33 H 81 L 05/06/24 03:00 101/64 05/06/24 02:50 97/63 L 05/06/24 02:48 37.6 C H 69 28 H 100 05/06/24 02:33 37.5 C 92 H 22 91 05/06/24 02:30 97/63 L 05/06/24 02:27 37.6 C H 73 23 100 05/06/24 02:24 94/60 L 05/06/24 02:21 37.6 C H 109 H 21 99 05/06/24 01:36 37.5 C 88 29 H 100 05/06/24 01:33 106/53 L 05/06/24 01:21 37.5 C 85 29 H 100 05/06/24 01:03 37.6 C H 95 H 28 H 100 05/06/24 01:03 94/57 L 05/06/24 00:45 37.5 C 78 28 H 100 05/06/24 00:30 37.5 C 71 30 H 100 05/06/24 00:18 37.5 C 77 31 H 100 05/06/24 00:09 37.5 C 73 30 H 100 05/06/24 00:03 92/66 L 05/06/24 00:00 81 05/05/24 23:51 37.6 C H 72 25 H 100 05/05/24 23:36 37.6 C H 77 39 H 100 05/05/24 23:00 37.6 C H 76 33 H 91/62 L 100 05/05/24 22:51 37.6 C H 81 38 H 98 05/05/24 22:50 94/57 L 05/05/24 22:43 78 94/57 L 05/05/24 22:33 37.7 C H 96 H 20 99 05/05/24 22:30 94/57 L 05/05/24 22:28 91 H 101/62 05/05/24 22:21 37.7 C H 89 36 H 86 L 05/05/24 22:18 37.8 C H 88 29 H 96 05/05/24 22:09 37.8 C H 92 H 32 H 100 05/05/24 22:00 101/62 05/05/24 21:56 104/66 05/05/24 21:54 37.8 C H 92 H 20 100 05/05/24 21:31 28 H 89/69 L 05/05/24 21:15 37.9 C H 80 31 H 100 05/05/24 21:01 85/59 L 05/05/24 21:00 37.9 C H 83 40 H 97 Lab & Micro Results (Past 24 Hours) RBC 3.05 M/uL (4.70-6.10) L 05/06/24 WBC 17.17 K/ul (4.8-10.8) H 05/06/24 Hgb 8.9 g/dl (14.0-18.0) L 05/06/24 Hct 28.8 % (42.0-52.0) L 05/06/24 MCV 94.4 fL (80.0-100.0) 05/06/24 MCH 29.2 pg (25.0-34.0) 05/06/24 MCHC 30.9 g/dL (32.0-36.0) L 05/06/24 RDW Standard Deviation 53.1 fL (36.4-46.3) H 05/06/24 RDW Coefficient of Variation 15.3 % (11.5-14.5) H 05/06/24 Plt Count 53 K/uL (130-400) L 05/06/24 Nucleated Red Blood Cells % (auto) 0.6 % 05/06 Nucleated RBC Absolute Count (auto) 0.11 K/uL (0.00-0.12) 0 05/06/24 Neutrophils (%) (Auto) 93.1 % 05/06/24 Lymphocytes (%) (Auto) 4.0 % 05/06/24 Monocytes # (Auto) 0.39 K/uL (0.11-0.59) 05/06/24 Eosinophils # (Auto) 0.00 K/uL (0.00-0.50) 05/06/24 Immature Granulocyte % (Auto) 0.5 % 05/06/24 Neutrophils # (Auto) 16.00 K/uL (1.40-6.50) H 05/06/24 Lymphocytes # (Auto) 0.68 K/uL (1.20-3.40) L 05/06/24 Monocytes # (Auto) 0.39 K/uL (0.11-0.59) 05/06/24 Eosinophils # (Auto) 0.00 K/uL (0.00-0.50) 05/06/24 Basophils # (Auto) 0.02 K/uL (0.00-0.20) 05/06/24 Immature Granulocyte # (Auto) 0.08 K/uL (0.01-0.20) 4 Polychromasia 1+ 05/06/24 Hypochromasia Present 05/06/24 Na 141 mmol/L (136-145) 05/06/24 K 2.9 mmol/L (3.5-5.1) L 05/06/24 Cl 107 mmol/L (98-107) 05/06/24 CO2 26 mmol/L (21-32) 05/06/24 Anion Gap 8 (3-11) 05/06/24 BUN 38 mg/dl (6-23) H 05/06/24 Creatinine 0.87 mg/dl (0.6-1.4) 05/06/24 Estimated GFR ( Amer) 93.2 ml/min 05/06/24 Estimated GFR (Non-Af Amer) 80.4 ml/min 05/06/24 BUN/Creatinine Ratio 43.7 (10-20) H 05/06/24 Glu 119 mg/dl (70-99(Fasting)) H 05/06/24 Ca 7.4 mg/dl (8.6-10.3) L 05/06/24 Phosphorus Level 2.7 mg/dl (2.5-4.9) 05/06/24 Mg 2.4 mg/dl (1.7-2.4) 05/06/24 03:43 Calcium Level 7.4 mg/dl (8.6-10.3) L 05/06/24 03:43 Ionized Calcium 1.11 mmol/L (1.12-1.32) L 05/06/24 09:56 Prothromb Time International Ratio 3.8 (0.9-1.1) H 05/06/24 03 :43 Venous Blood pH 7.36 (7.36-7.41) 05/06/24 09:56 Venous Blood Partial Pressure CO2 41 mmHg (38-50) 05/06/24 09:5 6 Venous Blood Partial Pressure O2 25 mmHg 05/06/24 09:56 Venous Blood HCO3 23 mmol/L 05/06/24 09:56 Venous Blood Base Excess -2.2 mEq/L 05/06/24 09:56 Venous Blood Oxygen Saturation < 60.0 % 05/06/24 09:56 Microbiology 05/05/24 07:41 Aerobic Blood Culture - Preliminary Blood No growth in Aerobic bottle after 24 hours. 05/05/24 07:35 Aerobic Blood Culture - Preliminary Blood No growth in Aerobic bottle after 24 hours. Anaerobic Blood Culture - Preliminary No growth in Anaerobic bottle after 24 hours. Diagnostic Findings (Past 24 Hours) Chest X-Ray 05/05/24 08:32 SINGLE VIEW CHEST CLINICAL HISTORY: Pneumonia. FINDINGS: An AP, portable, upright chest radiograph is compared to study dated 05/04/2024 and correlated with chest CT dated 05/02/2024. A right PICC line is unchanged in position. The heart is enlarged. There is pulmonary vascular congestion. Multifocal bilateral airspace opacities are again seen throughout both lungs. This is similar to yesterday. There are small pleural effusions with dependent consolidation. No pneumothorax is seen. The skeletal structures are osteopenic. The bony thorax is grossly intact. Cholecystectomy clips are noted in the right upper quadrant. IMPRESSION: 1. Cardiomegaly with pulmonary vascular congestion. 2. Multifocal bilateral airspace opacities have not significantly changed from yesterday. 3. Small pleural effusions. ACT 112: Negative or not required by law. Electronically signed by: Roque Wong M.D. 05/05/2024 8:46 AM Chest X-Ray 05/06/24 06:00 SINGLE VIEW CHEST CLINICAL HISTORY: Pneumonia. FINDINGS: 2 AP, portable, upright chest radiographs are compared to study dated 05/05/2024 and correlated with chest CT dated 05/02/2024. A right PICC line is unchanged in position. The heart is enlarged. There is pulmonary vascular congestion. Multifocal bilateral airspace opacities are again seen throughout both lungs. This is similar to yesterday. There are small pleural effusions with dependent consolidation. No pneumothorax is seen. The skeletal structures are osteopenic. The bony thorax is grossly intact. Cholecystectomy clips are noted in the right upper quadrant. IMPRESSION: 1. Cardiomegaly with pulmonary vascular congestion. 2. Multifocal bilateral airspace opacities have not significantly changed from yesterday. 3. Small pleural effusions. ACT 112: Negative or not required by law. Electronically signed by: Roque Wong M.D. 05/06/2024 8:17 AM I & O Totals 24 Hours 05/05/24 05/06/24 05/07/24 06:59 06:59 06:59 Intake Total 2010.649 / 2009.649 3263.280 / 3263.280 200 / 200 Output Total 600 / 600 1702 / 1702 Balance 1410.649 / 1623.430 8647.280 / 1561.280 200 / 200 Cumulative 05/02/24 03:34 thru 05/06/24 08:36 Intake Total 13683.761 Output Total 5777 Balance 5657.761 RT Ventilator Mngmt (Last Documented) Ventilator Ordered Settings Respiratory Rate 41 05/06/24 06:33 Fraction of Inspired Oxygen 45 05/05/24 11:00 Ventilator - PT Measurements Respiratory Rate 41 Coding Level of Care Code 29674 CRITICAL CARE 1ST 30-74M Diagnoses Septic shock A41.9; R65.21 Acute hypoxic respiratory failure J96.01 Severe aortic stenosis I35.0 Nonrheumatic mitral valve regurgitation I34.0 Cardiac valve disease etiology: nonrheumatic GERD without esophagitis K21.9 Acute kidney injury N17.9 Acute systolic heart failure I50.21 CAD (coronary artery disease) I25.10 Hyperlipidemia E78.5 Dissection of carotid artery I77.71 (4) Mitral regurgitation Cardiac valve disease etiology: nonrheumatic Qualified Code(s): I34.0 - Nonrheumatic mitral (valve) insufficiency
[2024-05-06 10:05] LABS: Base Excess VBG -2.2 mEq/L; HCO3 VBG 23 mmol/L; Oxygen Saturation VBG < 60.0 %; PCO2 VBG 41 mmHg (38-50); PO2 VBG 25 mmHg; pH VBG 7.36 (7.36-7.41)
--- NOTE | 2024-05-06 10:44 | Ultrasound Report ---
ULTRASOUND RIGHT UPPER EXTREMITY ARTERIAL CLINICAL HISTORY: Diminished upper extremity pulses. COMPARISON STUDY: No priors FINDINGS: Portable real-time grayscale and color Doppler sonography of the right upper extremity zion rust is performed. The right common carotid artery is patent with velocities measuring up to 83 cm/s. The subclavian artery is patent with velocities measuring up to 56 cm/s. The axillary and brachial a rteries are patent with velocities measuring up to 75 cm/s. There is thrombosis of the radial artery with no flow identified. The ulnar artery was not visualized. IMPRESSION: 1. There is thrombosis of the radial artery. 2. The ulnar artery was not visualized. 3. The more proximal arteries of the right upper extremity are patent. Electronically signed by: Roque Wong M.D. 05/06/2024 10:42 AM
--- NOTE | 2024-05-06 10:48 | Ultrasound Report ---
ULTRASOUND RIGHT UPPER EXTREMITY VENOUS CLINICAL HISTORY: Right arm pain and swelling. PICC line. COMPARISON STUDY: No prior. TECHNIQUE: Portable real-time, grayscale, and color Doppler sonography of the deep veins of the right upper extremity is performed. Compression and augmentation were utilized. FINDINGS: There is nearly occlusive to occlusive deep venous thrombosis identified in the right subclavian vein and the right axillary vein. There is extensive occlusive superficial venous thrombus identified in the basilic vein. The cephalic vein was not visualized. The right internal jugular vein and the right brachial veins are patent and normally compressible. The radial vein is patent. The ulnar vein was n ot visualized. Limited assessment of the left internal jugular vein, the left subclavian vein, as well as the right and left common femoral veins is performed for possible line placement. These vessels are patent. IMPRESSION: 1. There is nearly occlusive to occlusive deep venous thrombosis in the right subclavian and axillary veins. 2. There is extensive occlusive superficial venous thrombosis in the right basilic vein. 3. Nonvisualization of the right ulnar vein. 4. Additional findings as above. ACT 112: Negative or not required by law. Electronically signed by: Roque Wong M.D. 05/06/2024 10:46 AM
[2024-05-06 13:35] VITALS: BP 84/50
[2024-05-06] MEDS: ACETAMINOPHEN 1,000 MG/100 ML VIAL IV PRN (13:39)
--- NOTE | 2024-05-06 17:56 | Billing Data ---
Date of Service May 06, 2024 Coding Level of Care Code 50181 SUB INP/OBS CARE
[2024-05-07] MEDS: MoRPHine SULFATE 2 MG/ML CARP IV PRN (01:49)
[2024-05-07 06:11] LABS: Alanine Aminotransferase 99 U/L (7-52); Albumin Level 2.4 gm/dl (3.4-5.0); Alkaline Phosphatase 80 U/L (34-104); Anion Gap 9 (3-11); BUN Creatinine Ratio 38.9 (10-20); Bilirubin,Total 0.9 mg/dl (0.2-1.0); Blood Urea Nitrogen 44 mg/dl (6-23); Calcium 7.6 mg/dl (8.6-10.3); Carbon Dioxide 22 mmol/L (21-32); Chloride 108 mmol/L (98-107); Creatinine Clr Calc Pharmacy 50.4 ml/min; Est GFR (African American) 69.8 ml/min; Est GFR (Non-African American) 60.2 ml/min; Glucose 125 mg/dl (70-99(Fasting)); Magnesium 2.6 mg/dl (1.7-2.4); Phosphorus 3.3 mg/dl (2.5-4.9); Sodium 139 mmol/L (136-145); Total Protein 5.2 gm/dl (6.0-8.3)
[2024-05-07 06:16] LABS: Prothrombin Time 34.8 Seconds (9.0-12.0)
[2024-05-07 06:17] LABS: INR 3.4 (0.9-1.1)
[2024-05-07 06:19] LABS: Fibrinogen < 50 mg/dl (184-400)
[2024-05-07 06:37] LABS: Base Excess VBG -2.7 mEq/L; HCO3 VBG 23 mmol/L; Oxygen Saturation VBG < 60.0 %; PCO2 VBG 40 mmHg (38-50); PO2 VBG 38 mmHg; pH VBG 7.36 (7.36-7.41)
[2024-05-07 07:05] LABS: Hematocrit (blood only) 27.8 % (42.0-52.0); Hemoglobin 8.9 g/dl (14.0-18.0); Mean Corpuscular Volume 93.6 fL (80.0-100.0); Mean Platelet Volume 13.7 fL (9.4-12.4); Nucleated RBC # (auto) 0.14 K/uL (0.00-0.12); Nucleated RBC % (auto) 0.8 %; Platelet Count 90 K/uL (130-400); RDW Coefficient of Variation 15.2 % (11.5-14.5); RDW Standard Deviation 51.7 fL (36.4-46.3); Red Blood Count 2.97 M/uL (4.70-6.10); White Blood Count 18.18 K/ul (4.8-10.8)
[2024-05-07 07:06] LABS: Basophils # (auto) 0.02 K/uL (0.00-0.20); Basophils % (auto) 0.1 %; Immature Granulocytes # (auto) 0.14 K/uL (0.01-0.20); Immature Granulocytes % (auto) 0.8 %; Lymphocytes # (auto) 0.68 K/uL (1.20-3.40); Lymphocytes % (auto) 3.7 %; Monocytes # (auto) 0.46 K/uL (0.11-0.59); Monocytes % (auto) 2.5 %; Neutrophils # (auto) 16.88 K/uL (1.40-6.50); Neutrophils % (auto) 92.9 %; Polychromasia 2+
--- NOTE | 2024-05-07 07:52 | Critical Care Progress Note ---
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 Neuro - Encephalopathy multifactorial mild improvement: Sepsis, acute kidney injury, recent CVA. Waxing and waning Cardiac - Shockongoing: Multifactorial Systolic heart failure, severe and A-fib RVR on admission requiring cardioversion. Patient likely septic from pulmonary source as well. -Emergently cardioverted on 05/02. -Does not tolerate atrial fibrillation well -Continue amiodarone for rate control and hopefully rhythm control, consider conversion to p.o. when taking more adequate nutrition -Cardioversion in the emergency department was completed with 1 mg of Versed and 100 J Coronary artery disease Severe aortic stenosis --Prolonged QTc Avoid QT prolonging medication Keep magnesium greater than 2, phosphorus greater than 3, potassium greater than 4 Respiratory - Acute hypoxic respiratory failure: Multifactorial Multilobar pneumonia Acute CHF following A-fib RVR - On nasal cannula down from high flow GI - Mild transaminitis: Improving -Suspect hypotension secondary to sepsis versus congestive hepatopathy RENAL/LYTES - JONY -Suspect prerenal etiology of hypotension most likely secondary to inability to tolerate atrial fibrillation Monitor BUNs/creatinine - Foleystrict I's and O's -Hematuria: Will follow and provide supportive care for coagulation profile disturbances ENDO - ICU hyperglycemic protocol HEME - Anemia: Suspect anemia of chronic disease however continue to monitor as it is downtrending - Reviewed peripheral smear, no evidence of DIC on 05/02 Supratherapeutic INR: Continue to trend Hypofibrinogenemia: Improving -1 unit cryoprecipitate 05/03, under 10 units given 05/07/2024 Venous and arterial thromboembolism Likely from DIC ID - Sepsis --Multilobar pneumonia Linezolid will be discontinued today, he got total 7 days of MRSA coverage Ertapenem will be changed to Zosyn 05/07/2024 and will complete total 14 days of antibiotic - Ongoing fever and persistent leukocytosis, reculture with blood cultures, expanding coverage to Zyvox (patient unable to produce sputum specimen) - Blood culturesNegative to date - BioFire, nasal MRSA negative -- Persistent leukocytosis with low-grade fever could be from acute DVT --Prophylaxis VTE: Subcu heparin GI: Protonix Lines: Peripheral Diet: N.p.o. Plan: In/out: +1.7 L, urine output 550, +7.2 L since coming to the hospital DC ertapenem and transition to Zosyn for total of 14 days DC linezolid after evening dose. Given that the patient has significant clot as well as cyanosis of the toes, we will start the patient on subcu heparin. Will need to keep in mind that in patients with DIC they are also at risk for bleeding. There is no acute bleeding right now so I think it is reasonable to start subcu heparin rather than IV heparin. Given that the fibrinogen is less than 50, I will give 10 units of cryo. Vitamin K will be given for INR of 3.4. Overall prognosis of the patient is guarded. I personally do not think patient has the capacity to make decision This was relayed to the patient's son who will be the decision maker. Escalation of care would not be appropriate and cause more harm and suffering to the patient. I have personally spent 48 minutes of critical care time in the direct management of this patient. This is a life/limb threatening event. This includes time spent evaluating patient, direct bedside care, chart review, placing orders, interpretation of diagnostic studies, discussion with consultants, patient, and family members, as well as other required patient management activities. This time is exclusive of all separately billable procedures, and teaching time and separate from and in addition to any other critical care service time. Please note the above document was generated using voice recognition software. It may contain grammatical, syntax or spelling errors. Admission and Anticipated Discharge Date Admission Date: May 02, 2024 Subjective Patient seen and examined at bedside. No acute distress, no adverse events overnight Patient's son as well as [id number] in the room. Patient was saturating 96-97% on nasal cannula He was not in any respiratory distress He is still spiking low-grade fever Was on Levophed 0.1 at the time of examination. Unfortunately blood pressure is not able to be monitored on a regular basis He was oriented to self. Review of Systems 2 Review of Systems: Unobtainable due to mental health condition Physical Exam 2 Physical Exam: Constitutional: No acute distress HEENT: EOMI, PERRLA Respiratory system: Decreased air entry bilaterally, no wheeze, rhonchi, positive crackles bilaterally CVS: S1-S2 positive, no murmurs or gallops Abdomen: Soft, nontender, nondistended, positive bowel sounds x4 Extremities: +1 pulses bilaterally dorsalis pedis, radialis, cyanosis appreciated bilateral toes, cyanosis appreciated in the right fingers as well as left ring finger. Neuro: Awake alert, oriented to self Psych: Flat mood and affect G/U: Positive [place] Skin: no rashes, warm and dry Lymphatic: no cervical or axillary lymphadenopathy Results & Data Results & Data Vital Signs (Past 12 Hours) Vital Signs Temp Pulse Resp Pulse Ox O2 Del Method O2 Flow Rate 05/07/24 04:52 77 05/07/24 04:38 38.3 C H 87 34 H 100 High Flow Nasal Cannula 05/07/24 04:03 38.3 C H 86 35 H 100 05/07/24 03:36 38.3 C H 83 37 H 100 High Flow Nasal Cannula 05/07/24 03:00 38.3 C H 83 37 H 100 High Flow Nasal Cannula 05/07/24 02:30 38.3 C H 85 41 H 100 05/07/24 02:24 89 05/07/24 02:03 38.3 C H 89 38 H 100 05/07/24 01:30 38.3 C H 84 30 H 98 High Flow Nasal Cannula 05/07/24 01:00 38.3 C H 81 27 H 92 High Flow Nasal Cannula 05/07/24 00:33 38.3 C H 82 36 H 99 05/07/24 00:06 38.4 C H 95 H 40 H 100 05/06/24 23:45 38.4 C H 86 22 100 05/06/24 23:40 77 05/06/24 23:09 38.3 C H 78 40 H 98 High Flow Nasal Cannula 05/06/24 22:40 92 H 05/06/24 22:30 38.2 C H 95 H 35 H 99 05/06/24 22:21 38.2 C H 101 H 24 100 05/06/24 21:33 38.2 C H 93 H 42 H 98 High Flow Nasal Cannula 6 05/06/24 20:33 38.2 C H 92 H 31 H 90 05/06/24 20:03 38.2 C H 82 22 100 05/06/24 20:00 High Flow Nasal Cannula 6 Laboratory Results 05/07/24 06:27 Coding Level of Care Code 21061 CRITICAL CARE 1ST 30-74M Diagnoses DVT (deep venous thrombosis) I82.409 Pneumonia J18.9 Encephalopathy G93.40 Sepsis A41.9 Atrial fibrillation with rapid ventricular response I48.91 Acute hypoxic respiratory failure J96.01 Septic shock A41.9; R65.21 Cardiomyopathy I42.9
--- NOTE | 2024-05-07 07:58 | XRay Report ---
XR chest 1V portable CLINICAL HISTORY: PNA TECHNIQUE: Single frontal radiograph of the chest was obtained. Comparison: Comparison is made to chest radiograph 05/06/2024 FINDINGS: No lines and tubes are seen. Cardiomegaly is noted. The aortic arch is calcified. Multifocal airspace opacities are seen. Small right pleural effusion is seen. IMPRESSION: 1. Multifocal airspace opacities are unchanged from prior exam. 2. Small right pleural effusion. ACT 112: Negative or not required by law. Electronically signed by: Yonny Lira M.D. 05/07/2024 7:55 AM
--- NOTE | 2024-05-07 09:12 | Hospitalist Progress Note ---
Date of Service May 07, 2024 Assessment & Plan (1) Septic shock: Plan: Patient with leukocytosis, pneumonia on chest x-ray. CT chest showed possible PNA and pneumobilia - Elevated lactate and procal; biofire and nasal MRSA neg - Blood cultures and urine culture neg at 48 hrs - Etiology: iatrogenic pneumonia v pneumobilia, given history and chest CT PNA more likely - given low platelets, elevated D-dimer, low fibrinogen, and elevated PT/aPTT- concern for DIC, however peripheral smear was reassuring; as pt's coag studies remain abnormal, concern for DIC remains (hem/onc consulted) - pt remains on ABX as below - fluid status tenuous d/t heart function as below (2) Acute hypoxic respiratory failure: Plan: Acute hypoxic respiratory failurelikely mixed etiology in the setting of acute CHF, A-fib RVR, and possible underlying pneumonia. - CT chest showed bilateral airspace opacities and interstitial thickening possibly PNA and superimposed pulmonary edema as well as a possible lesion - ABG with hypoxia respiratory alkalosis - PE unlikely given systemic anticoagulation; although, pt does have other clots throughout UE - pt on ABX (doxy, linezolid, and zosyn) - remains on high flow nasal cannula, low threshold for intubation - management per ICU (3) Encephalopathy: Plan: Likely secondary to underlying sepsis. CT head 05/02 unremarkable. 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 Improving. (4) Acute kidney injury: Plan: Likely prerenal in the setting of septic shock. Resolved. (5) Acute systolic heart failure: Plan: -TTE 04/20: Moderate to severely reduced EF, with mild concentric hypertrophy, severe valvular aortic stenosis with moderate mitral regurg and elevated RV systolic pressure 40-50. - currently on levophed drip - fluid status tenuous given underlying CHF/hypoxic respiratory failure and hypotension (6) Atrial fibrillation with rapid ventricular response: Plan: - Cardioverted 05/02, 05/04. Continuous monitoring on telemetry. - continue amiodarone for rhythm control (7) CAD (coronary artery disease): Plan: as above (8) Severe aortic stenosis: Plan: Last admission, cardiology recommendation for TAVR consult if pt becomes stable enough to proceed. 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 Pt found to have right sided UE DVT and some thrombosis of right UE radial artery. Pt on heparin. Concern remains for DIC process. Plan DVT ppx: SCDs, systemic anticoagulation Admission and Anticipated Discharge Date Admission Date: May 02, 2024 Supervising Physician Co-Signing Physician Notes I also saw the patient with the resident and confirmed hicks portions of the clinical history and exam. At the time of our joint visit this afternoon, several family members at bedside, including and [id number]. Patient awake, oriented - conversing with family, so more alert than earlier today. Primary evaluation and treatment per custom protection officer/ICU team; family medicine continues to follow in case of transfer to the floor, be it for improvement in clinical condition or a transition to comfort care. I agree with the impression and plan as noted in the resident note above. Subjective Pt unchanged this morning. [id number] and son as bed side. No new concerns or questions. Review of Systems Review of Systems: As per HPI Physical Exam Physical Exam: Constitutional: ill appearing, mild distress HEENT: normocephalic, no conjunctival injection CV: tachycardic, regular rhythm, no murmur, bilateral LE edema Respiratory: CTA bilaterally. No rhonchi, wheezes, or crackles. Minimal increase work of breathing GI: soft, distended, nontender, + bowel sounds MSK: no gross deformities noted Skin: cool in extremities; blue/purple coloration of feet/fingers Neuro: alert, responsive to voice/conversation Psych: mood and affect congruent Results & Data Results & Data Vital Signs (Past 12 Hours) Vital Signs Temp Pulse Resp Pulse Ox O2 Del Method O2 Flow Rate 05/07/24 08:33 38.1 C H 93 H 27 H 100 05/07/24 08:06 38.2 C H 88 36 H 92 05/07/24 07:33 38.2 C H 80 36 H 99 05/07/24 07:03 38.3 C H 79 37 H 96 05/07/24 04:52 77 05/07/24 04:38 38.3 C H 87 34 H 100 High Flow Nasal Cannula 6 05/07/24 04:03 38.3 C H 86 35 H 100 05/07/24 03:36 38.3 C H 83 37 H 100 High Flow Nasal Cannula 6 05/07/24 03:00 38.3 C H 83 37 H 100 High Flow Nasal Cannula 6 05/07/24 02:30 38.3 C H 85 41 H 100 05/07/24 02:24 89 05/07/24 02:03 38.3 C H 89 38 H 100 05/07/24 01:30 38.3 C H 84 30 H 98 High Flow Nasal Cannula 6 05/07/24 01:00 38.3 C H 81 27 H 92 High Flow Nasal Cannula 6 05/07/24 00:33 38.3 C H 82 36 H 99 05/07/24 00:06 38.4 C H 95 H 40 H 100 05/06/24 23:45 38.4 C H 86 22 100 05/06/24 23:40 77 05/06/24 23:09 38.3 C H 78 40 H 98 High Flow Nasal Cannula 6 05/06/24 22:40 92 H 05/06/24 22:30 38.2 C H 95 H 35 H 99 05/06/24 22:21 38.2 C H 101 H 24 100 05/06/24 21:33 38.2 C H 93 H 42 H 98 High Flow Nasal Cannula 6 Resident Activity Tracking Resident Involvement: Resident Care Provided Care Provided: [facility] Medicine (9) Mitral regurgitation Cardiac valve disease etiology: nonrheumatic Qualified Code(s): I34.0 - Nonrheumatic mitral (valve) insufficiency
[2024-05-07 09:17] LABS: Bilirubin Direct 0.3 mg/dl (0-0.2); Potassium 3.6 mmol/L (3.5-5.1)
[2024-05-07] MEDS ORDERED: Heparin IV Adult Wt-Based Low-Dose *NO* INITIAL Bolus Protocol IV STA (09:55)
[2024-05-07] MEDS ORDERED: HEPARIN SODIUM/DEXTROSE 25,000 UNITS/500 ML BAG IV SCH (10:15)
[2024-05-07] MEDS: PHYTONADIONE 2.5 MG in DEXTROSE 5% 50 ML IV ONE (10:45)
[2024-05-07 13:24] LABS: Appearance Urine Turbid (Clear); Bacteria Urine Automated None Seen (None Seen); Bilirubin Urine Negative (Negative); Blood Urine 3+ (Negative); Cast Urine Automated 0-2 /lpf (0-2); Color Urine Amber; Epithelial Cell Urine Auto 0-2 /hpf (0-2); Glucose Urine UA Negative (Negative); Ketones Urine Negative (Negative); Leukocyte Esterase Urine 1+ (Negative); Nitrite Urine Negative (Negative); Protein Urine 2+ (Negative); RBC Urine Automated >20 /hpf (0-2); Specific Gravity Urine 1.024 (1.000-1.030); Urobilinogen Urine Negative (Negative)
--- NOTE | 2024-05-07 15:28 | Oncology Consultation ---
Date of Consultation May 07, 2024 Assessment & Plan (1) DIC (disseminated intravascular coagulation): I agree with the assessment that the patient has disseminated intravascular coagulation with critical underlying medical illness. At this time my recommendation is supportive management and transfusion of blood products as needed. Since the fibrinogen level is less than 50 I recommend cryoprecipitate infusions to maintain a fibrinogen level at least greater than 100. transfuse platelets to maintain a platelet count close to 50,000/mcL or if the patient is actively bleeding since there is no active stigmata of bleeding but there is cyanosis and concerns for microvascular thrombi I will recommend anticoagulation with heparin. I recommend low-dose heparin protocol to be titrated to lower threshold of anti x-a factor level. low-dose heparin protocol should be utilized in this patient given the recent history of DVT, acrocyanosis related to DIC (2) Sepsis: broad-spectrum antibiotics currently on Zosyn and linezolid (3) Acute hypoxic respiratory failure: management per our ICU colleagues and hospital internal medicine Plan thank you for this interesting hematological consult. 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 Subsequently he was started on Coumadin. He was recently noticed to have atrial fibrillation and respiratory distress, came to the hospital with hypoxic respiratory failure. He underwent cardioversion, remained hypotensive and hypoxic. He was critically ill and started on broad-spectrum antibiotics. During this admission the patient has been noted to be thrombocytopenic with a platelet count between 50,000/mcL to 90,000/mcL He has leukocytosis with a WBC count of 18,000/mcL. he has become progressively anemic and his hemoglobin has dropped from a baseline of 13 g/dL to 9 g/dL. No obvious evidence of bleeding. He is on pressor support in the ICU, he is tachypneic and is febrile. DIC panel was sent and he was noted to have hypofibrinogenemia, elevated PT and INR. Hematology has been consulted to assist in management of this critically ill patient with disseminated intravascular coagulation. Allergies Allergy/AdvReac Type Severity Reaction Status Date / Time No Known Allergies Allergy Verified 04/03/24 20:34 Home Medications Medication Instructions Recorded Confirmed Type multivitamin (Daily Multi-Vitamin 1 tab PO DAILY #30 tabs 06/06/19 04/03/24 Rx tablet) calcium carbonate 500 mg-vitamin 1 tab PO DAILY 12/07/19 04/03/24 History D3 10 mcg (400 unit) chewable tablet (Calcium 500 + D) cyanocobalamin (vitamin B-12) 1,000 mcg PO DAILY 12/07/19 04/03/24 History 1,000 mcg tablet (Vitamin B-12) dextroamphetamine-amphetamine 5 mg 5 mg PO BID 05/18/22 04/03/24 History tablet (Adderall) tamsulosin 0.4 mg capsule 0.8 mg (2 x 0.4 mg) PO DAILY #180 10/31/23 04/03/24 Rx caps hydroxyzine HCl 10 mg tablet 5 - 10 mg (0.5 - 1 x 10 mg) PO HS 03/22/24 04/03/24 Rx PRN itching #20 tabs alprazolam 0.25 mg tablet 0.25 mg PO HS PRN Sleep 03/28/24 04/03/24 History aspirin 325 mg tablet 325 mg PO DAILY 03/28/24 04/03/24 History atorvastatin 20 mg tablet 20 mg PO QAM #30 tabs 03/31/24 04/03/24 Rx carvedilol 3.125 mg tablet 3.125 mg PO BIDM #60 tabs 03/31/24 04/03/24 Rx furosemide 20 mg tablet 20 mg PO QAM #30 tabs 03/31/24 04/03/24 Rx potassium chloride 10 mEq 10 meq PO DAILY take with lasix 03/31/24 04/03/24 Rx tablet,extended release (furosemide) #30 tabs vitamin B complex 1 tab PO DAILY 04/03/24 04/03/24 History Patient History Medical History Sleep disturbance Epigastric abdominal pain Subconjunctival hemorrhage of left eye Abnormal LFTs Surgical History History of parathyroid surgery History of laparoscopic cholecystectomy H/O parathyroidectomy History of cholecystectomy Family History Sister Myocardial infarction Mother Ovarian cancer Schizophrenia Denies family history of Colon cancer Prostate cancer Breast cancer Social History Smoking Status: Former smoker Tobacco Type: Cigarettes, Pipe and Cigars Second Hand Exposure: No; Do You Dip or Chew Tobacco: No; Hx Alcohol Use: No Hx Substance Use: No Preferred Language: Gambian Communication Ability: Effective Visual Impairment: No Limitations Hearing Ability: Normal 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 Beliefs That Will Affect Care: None marital status: Current Living Situation: Rehab Current Living Situation Comment: [facility] 04/03 current occupational status: retired Feels Safe at Home: Yes Childhood Exposure to Second-Hand Smoke: Yes Dental Care, Regularly: Yes Physical Activity Frequency: Does not Exercise Seatbelt Use: always Sunscreen Use: No Assistive Devices: Glasses and Walker Review of Systems Review of Systems: Unobtainable due to cognitive status Constitutional: as per Subjective / HPI Eyes: as per Subjective / HPI Ear, Nose, Mouth, Throat: as per Subjective / HPI Respiratory: as per Subjective / HPI Cardiovascular: as per Subjective / HPI Gastrointestinal: as per Subjective / HPI Genitourinary: + as per Subjective / HPI Musculoskeletal: as per Subjective / HPI Integumentary: as per Subjective / HPI Neurologic: as per Subjective / HPI Psychiatric: as per Subjective / HPI Endocrine: as per Subjective / HPI Hematologic / Lymphatic: as per Subjective / HPI Allergy / Immunological: as per Subjective / HPI Physical Exam Constitutional: WD/WN, vitals as above Eyes: PERRL, conjunctivae normal, anicteric sclerae ENMT: external ear and nose normal, oropharynx normal Neck: trachea midline, no thyromegaly Respiratory: normal respiratory effort, lungs clear to auscultation Cardiovascular: RRR, no murmur, no edema Gastrointestinal (Abdomen): normal bowel sounds, soft, nontender, no hepatosplenomegaly Musculoskeletal: no cyanosis or clubbing, extremities motor strength 5/5 Skin: no rashes, warm and dry Neurologic: patellar DTR's 2+ bilat, sensation intact Results & Data Vital Signs (Past 12 Hours) Vital Signs Temp Pulse Resp Pulse Ox O2 Del Method O2 Flow Rate 05/07/24 14:16 37.7 C H 87 31 H 100 6 05/07/24 14:00 37.7 C H 87 30 H 100 6 05/07/24 13:46 37.7 C H 95 H 31 H 100 6 05/07/24 13:14 37.8 C H 99 H 31 H 100 6 05/07/24 12:59 37.8 C H 89 32 H 100 6 05/07/24 12:45 37.8 C H 90 20 100 05/07/24 08:33 38.1 C H 93 H 27 H 100 05/07/24 08:06 38.2 C H 88 36 H 92 05/07/24 07:33 38.2 C H 80 36 H 99 05/07/24 07:03 38.3 C H 79 37 H 96 05/07/24 04:52 77 05/07/24 04:38 38.3 C H 87 34 H 100 High Flow Nasal Cannula 6 05/07/24 04:03 38.3 C H 86 35 H 100 05/07/24 03:36 38.3 C H 83 37 H 100 High Flow Nasal Cannula 6
[2024-05-07] MEDS: HEPARIN SOD 5,000 UNIT/0.5 ML VIAL SQ SCH (17:27)
--- NOTE | 2024-05-07 17:34 | Electrocardiogram Report ---
Test Reason : Blood Pressure : / mmHG Vent. Rate : 090 BPM Atrial Rate : 065 BPM P-R Int : 000 ms QRS Dur : 162 ms QT Int : 442 ms P-R-T Axes : 000 229 027 degrees QTc Int : 540 ms Sinus rhythm with frequent and consecutive atrial ectopy Right bundle branch block Abnormal ECG Confirmed by Bnoy Rodriguez ([id number]) on 05/07/2024 5:34:12 PM Referred By: REFERRED SELF Confirmed By:Luis Alberto Rodriguez
--- NOTE | 2024-05-07 20:45 | Communication Note ---
Date of Service: May 07, 2024 I had a long conversation with the patient's son, regarding the patient's prognosis along with CODE STATUS and goals of care. The Patient's son is currently the POA due to patient's encephalopathy, and the patient's is living, but suffered a stroke about a year ago with residual cognitive deficit. Mr. Burnette has continued to decompensate throughout this hospitalization and in the past few weeks, during which he has continued to suffer from ongoing sepsis, systolic heart failure, aortic stenosis, CVA, and other comorbidities, recently complicated by DIC and hypercoagulopathy with arterial thrombus and ischemia to the right upper extremity and DVTs . Patient continues to require high flow nasal cannula with significant hypoxia and vasopressor support due to underlying shock. Given his age and underlying comorbidities, he likely exhibits a poor prognosis, and has yet to show improvement on this hospitalization. Full recovery to the patient's previous baseline regarding ADLs and quality of life would be unlikely at this point, and he is not stable to undergo TAVR to address underlying valvular heart disease with severe aortic stenosis. In conclusion to the conversation regarding goals of care and CODE STATUS, given the patient's current condition and poor prognosis, the patient's son would like to at this point changed the CODE STATUS to DNR in the event of cardiac arrest. Ultimately, plan to transition patient to comfort measures once family is able to be at the bedside in the morning. Family has also elected to not escalate care at this time, and will likely transition to comfort measures if patient were to decompensate overnight. Plan was communicated to the patient's bedside nurse as well. Coding Level of Care Code None
[2024-05-08 05:10] LABS: BUN Creatinine Ratio 41.5 (10-20); Calcium 7.5 mg/dl (8.6-10.3); Creatinine Clr Calc Pharmacy 60.6 ml/min; Est GFR (African American) 87.2 ml/min; Est GFR (Non-African American) 75.2 ml/min; Magnesium 2.4 mg/dl (1.7-2.4)
[2024-05-08 05:11] LABS: INR 1.3 (0.9-1.1); Potassium 3.5 mmol/L (3.5-5.1); Prothrombin Time 13.4 Seconds (9.0-12.0)
[2024-05-08 05:22] LABS: Basophils # (auto) 0.02 K/uL (0.00-0.20); Basophils % (auto) 0.1 %; Eosinophils # (auto) 0.01 K/uL (0.00-0.50); Eosinophils % (auto) 0.1 %; Hematocrit (blood only) 26.6 % (42.0-52.0); Hemoglobin 8.1 g/dl (14.0-18.0); Immature Granulocytes # (auto) 0.11 K/uL (0.01-0.20); Immature Granulocytes % (auto) 0.7 %; Lymphocytes # (auto) 0.68 K/uL (1.20-3.40); Mean Corpuscular Hemoglobin 28.9 pg (25.0-34.0); Mean Corpuscular Hgb Conc 30.5 g/dL (32.0-36.0); Mean Platelet Volume 13.6 fL (9.4-12.4); Monocytes # (auto) 0.64 K/uL (0.11-0.59); Monocytes % (auto) 3.8 %; Neutrophils # (auto) 15.36 K/uL (1.40-6.50); Neutrophils % (auto) 91.3 %; Nucleated RBC # (auto) 0.08 K/uL (0.00-0.12); Nucleated RBC % (auto) 0.5 %; Platelet Count 126 K/uL (130-400); Platelet Estimate Normal (Normal); Polychromasia 1+; RDW Coefficient of Variation 15.4 % (11.5-14.5); RDW Standard Deviation 53.4 fL (36.4-46.3); White Blood Count 16.82 K/ul (4.8-10.8)
[2024-05-08 05:28] LABS: Fibrinogen 241 mg/dl (184-400)
--- NOTE | 2024-05-08 07:00 | Hospitalist Progress Note ---
Date of Service May 08, 2024 Assessment & Plan (1) End of life care: Plan: After lengthy discussions by various providers over the past few days concerning pt's medical status and poor prognosis, pt's son (ZEE) has decided to move pt to DNR/DNI in the event of a cardiac arrest, allowing a natural . 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 A assistant womens volleyball coach has been requested. (2) Septic shock: Plan: Patient with leukocytosis, pneumonia on chest x-ray. CT chest showed possible PNA and pneumobilia - Elevated lactate and procal; biofire and nasal MRSA neg - Blood cultures and urine culture neg at 48 hrs - Etiology: iatrogenic pneumonia v pneumobilia, given history and chest CT PNA more likely - given low platelets, elevated D-dimer, low fibrinogen, and elevated PT/aPTT- concern for DIC, however peripheral smear was reassuring; as pt's coag studies remain abnormal, concern for DIC remains (hem/onc consulted who recommended supportive management) - pt's ABX discontinued (3) Acute hypoxic respiratory failure: Plan: Acute hypoxic respiratory failurelikely mixed etiology in the setting of acute CHF, A-fib RVR, and possible underlying pneumonia. - CT chest showed bilateral airspace opacities and interstitial thickening possibly PNA and superimposed pulmonary edema as well as a possible lesion - ABG with hypoxia respiratory alkalosis - PE unlikely given systemic anticoagulation; although, pt does have other clots throughout UE - will discontinue ABX - continue oxygen for comfort PRN (4) Encephalopathy: Plan: Likely secondary to underlying sepsis. CT head 05/02 unremarkable. 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 Improving, but pt remains delirious d/t multiple factors. (5) Acute kidney injury: Plan: Likely prerenal in the setting of septic shock. Resolved. (6) Acute systolic heart failure: Plan: - TTE 04/20: Moderate to severely reduced EF, with mild concentric hypertrophy, severe valvular aortic stenosis with moderate mitral regurg and elevated RV systolic pressure 40-50. - discontinue levophed ip (7) Atrial fibrillation with rapid ventricular response: Plan: - Cardioverted 05/02, 05/04. Discontinue monitoring on telemetry - discontinue amiodarone (8) CAD (coronary artery disease): Plan: as above (9) Severe aortic stenosis: Plan: Last admission, cardiology recommended TAVR consult if pt becomes stable enough to proceed. At this point in pt's disease process, do not expect pt to stabilize enough for this evaluation/procedure. 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 found to have right sided UE DVT and some thrombosis of right UE radial artery. DIC process remains a concern. Admission and Anticipated Discharge Date Admission Date: May 02, 2024 Supervising Physician Co-Signing Physician Notes I also saw the patient with the resident and confirmed hicks portions of the clinical history and exam. Family visiting and at bedside. Plan is to transition to comfort care later today. A assistant womens volleyball coach has been requested. Will work with ICU team and the transition from curative to palliative care once final decision is made Subjective Pt aler this AM and asking for a drink of water. Otherwise no questions or concerns. Son and niece at bedside. Review of Systems Review of Systems: As per HPI Physical Exam Physical Exam: Constitutional: ill appearing, no acute distress HEENT: normocephalic, no conjunctival injection CV: decreased perfusion noted of hands/feet Respiratory: no increased work of breathing Neuro: alert to my voice, conversant Results & Data Results & Data Vital Signs (Past 12 Hours) Vital Signs Temp Pulse Resp Pulse Ox O2 Del Method O2 Flow Rate 05/08/24 06:39 37.5 C 81 32 H 100 Nasal Cannula 6 05/08/24 06:03 37.5 C 82 37 H 99 05/08/24 05:33 37.6 C H 89 32 H 100 Nasal Cannula 6 05/08/24 05:00 37.6 C H 77 33 H 98 05/08/24 04:39 37.6 C H 83 39 H 96 05/08/24 04:00 37.6 C H 81 21 Nasal Cannula 6 05/08/24 03:42 37.7 C H 82 33 H 100 05/08/24 03:12 37.7 C H 82 34 H 100 05/08/24 02:39 37.6 C H 91 H 32 H 98 05/08/24 01:36 37.5 C 84 30 H 98 Nasal Cannula 6 05/08/24 01:00 37.6 C H 81 34 H 100 05/08/24 00:04 84 05/08/24 00:00 37.7 C H 94 H 31 H 100 05/07/24 23:09 37.2 C 85 22 05/07/24 22:00 37.3 C 93 H 37 H 100 05/07/24 21:06 37.4 C 93 H 25 H 97 05/07/24 20:00 37.5 C 97 H 42 H 05/07/24 20:00 Nasal Cannula 6 05/07/24 19:12 37.6 C H 98 H 26 H 91 Resident Activity Tracking Resident Involvement: Resident Care Provided Care Provided: Adult [facility] Medicine (10) Mitral regurgitation Cardiac valve disease etiology: nonrheumatic Qualified Code(s): I34.0 - Nonrheumatic mitral (valve) insufficiency
--- NOTE | 2024-05-08 07:37 | Critical Care Progress Note ---
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 Neuro - Encephalopathy multifactorial mild improvement: Sepsis, acute kidney injury, recent CVA. Waxing and waning Cardiac - Shockongoing: Multifactorial Systolic heart failure, severe and A-fib RVR on admission requiring cardioversion. Patient likely septic from pulmonary source as well. -Emergently cardioverted on 05/02. -Does not tolerate atrial fibrillation well -Continue amiodarone for rate control and hopefully rhythm control, consider conversion to p.o. when taking more adequate nutrition -Cardioversion in the emergency department was completed with 1 mg of Versed and 100 J Coronary artery disease Severe aortic stenosis --Prolonged QTc Avoid QT prolonging medication Keep magnesium greater than 2, phosphorus greater than 3, potassium greater than 4 Respiratory - Acute hypoxic respiratory failure: Multifactorial Multilobar pneumonia Acute CHF following A-fib RVR - On nasal cannula down from high flow GI - Mild transaminitis: Improving -Suspect hypotension secondary to sepsis versus congestive hepatopathy RENAL/LYTES - JONY -Suspect prerenal etiology of hypotension most likely secondary to inability to tolerate atrial fibrillation Monitor BUNs/creatinine - Foleystrict I's and O's -Hematuria: Will follow and provide supportive care for coagulation profile disturbances ENDO - ICU hyperglycemic protocol HEME - Anemia: Suspect anemia of chronic disease however continue to monitor as it is downtrending - Reviewed peripheral smear, no evidence of DIC on 05/02 Supratherapeutic INR: Continue to trend Hypofibrinogenemia: Improving -1 unit cryoprecipitate 05/03, under 10 units given 05/07/2024 Venous and arterial thromboembolism Likely from DIC Keep fibrinogen greater than 100 ID - Sepsis --Multilobar pneumonia Linezolid discontinued 05/07/2024, he got total 7 days of MRSA coverage Ertapenem will be changed to Zosyn 05/07/2024 and will complete total 14 days of antibiotic - Ongoing fever and persistent leukocytosis, reculture with blood cultures, expanding coverage to Zyvox (patient unable to produce sputum specimen) - Blood cultures Negative to date - BioFire, nasal MRSA negative -- Persistent leukocytosis with low-grade fever could be from acute DVT -- DNR/DNI --Prophylaxis VTE: Subcu heparin GI: Protonix Lines: Peripheral Diet: N.p.o. Plan: In/out: +810, urine output 1351, +7.2 L since coming to the hospital Continue with Zosyn for total of 14 days Had a talk with patient's son at bedside as well as outside the room. Family has decided to pursue comfort measures going forward. They would like the family members to visit him and they will let us know when they are ready for it I have personally spent 45 minutes of critical care time in the direct management of this patient. This is a life/limb threatening event. This includes time spent evaluating patient, direct bedside care, chart review, placing orders, interpretation of diagnostic studies, discussion with consultants, patient, and family members, as well as other required patient management activities. This time is exclusive of all separately billable procedures, and teaching time and separate from and in addition to any other critical care service time. Please note the above document was generated using voice recognition software. It may contain grammatical, syntax or spelling errors. Admission and Anticipated Discharge Date Admission Date: May 02, 2024 Subjective Patient seen and examined at bedside. No acute distress, no adverse events overnight Still on Levophed 0.12 at the time of examination He was alert oriented to self Denied any chest pain, no shortness of breath Still on amiodarone Review of Systems 2 Review of Systems: All systems reviewed & are unremarkable except as noted in Subjective Physical Exam 2 Physical Exam: Constitutional: No acute distress HEENT: EOMI, PERRLA Respiratory system: Decreased air entry bilaterally, no wheeze, rhonchi, positive crackles bilaterally CVS: S1-S2 positive, no murmurs or gallops Abdomen: Soft, nontender, nondistended, positive bowel sounds x4 Extremities: +1 pulses bilaterally dorsalis pedis, radialis, cyanosis appreciated bilateral toes, cyanosis appreciated in the right fingers as well as left ring finger, seem to be getting worse. Blisters on the right thumb Neuro: Awake alert, oriented to self Psych: Flat mood and affect G/U: Positive [place] Skin: no rashes, warm and dry Lymphatic: no cervical or axillary lymphadenopathy Results & Data Results & Data Vital Signs (Past 12 Hours) Vital Signs Temp Pulse Resp Pulse Ox O2 Del Method O2 Flow Rate 05/08/24 06:39 37.5 C 81 32 H 100 Nasal Cannula 6 05/08/24 06:03 37.5 C 82 37 H 99 05/08/24 05:33 37.6 C H 89 32 H 100 Nasal Cannula 6 05/08/24 05:00 37.6 C H 77 33 H 98 05/08/24 04:39 37.6 C H 83 39 H 96 05/08/24 04:00 37.6 C H 81 21 Nasal Cannula 6 05/08/24 03:42 37.7 C H 82 33 H 100 05/08/24 03:12 37.7 C H 82 34 H 100 05/08/24 02:39 37.6 C H 91 H 32 H 98 05/08/24 01:36 37.5 C 84 30 H 98 Nasal Cannula 6 05/08/24 01:00 37.6 C H 81 34 H 100 05/08/24 00:04 84 05/08/24 00:00 37.7 C H 94 H 31 H 100 05/07/24 23:09 37.2 C 85 22 05/07/24 22:00 37.3 C 93 H 37 H 100 05/07/24 21:06 37.4 C 93 H 25 H 97 05/07/24 20:00 37.5 C 97 H 42 H 05/07/24 20:00 Nasal Cannula 6 Laboratory Results 05/08/24 04:26 05/08/24 04:26 Coding Level of Care Code 45881 CRITICAL CARE 1ST 30-74M Diagnoses DVT (deep venous thrombosis) I82.409 Pneumonia J18.9 Encephalopathy G93.40 Sepsis A41.9 Atrial fibrillation with rapid ventricular response I48.91 Acute hypoxic respiratory failure J96.01 Septic shock A41.9; R65.21 Cardiomyopathy I42.9
--- NOTE | 2024-05-08 07:50 | XRay Report ---
XR chest 1V portable HISTORY: 84 years-old Male PNA acute shortness of breath COMPARISON: 05/07/2024 TECHNIQUE: AP view of the chest FINDINGS: Cardiac silhouette is enlarged. Pulmonary vascular congestion. Extensive mixed interstitial and alveo lar opacities redemonstrated with consolidation most pronounced in the right lung base. Layering righ t greater than left pleural effusions. No pneumothorax. IMPRESSION: 1. No significant change of the extensive mixed interstitial and alveolar opacities with right greate r than left layering pleural effusions. 2. Cardiomegaly with pulmonary vascular congestion. ACT 112: Negative or not required by law. The above report was generated using voice recognition software. It may contain grammatical, syntax o r spelling errors. Electronically signed by: Deuce Zuniga M.D. 05/08/2024 7:49 AM
[2024-05-08] MEDS: PIPER/TAZO 4.5g in D5W MINI-B 100 ML IV SCH (09:36)
[2024-05-08] MEDS: INSULIN ASPART PER UNIT CHARGE SC SCH (12:32)
[2024-05-08 18:08] VITALS: PULSE 99; RESP 35; TEMP 100.6; O2SAT 91
[2024-05-08] MEDS ORDERED: GLYCOPYRROLATE 0.2 MG/ML VIAL IV PRN (18:25)
[2024-05-08] MEDS ORDERED: LORazepam 0.5 MG TAB PO PRN (18:25)
[2024-05-08] MEDS ORDERED: ONDANSETRON 4 MG OD TAB SL PRN (18:25)
[2024-05-08] MEDS: HYDROmorphone INJ 0.5 MG/0.5 ML SYR IV PRN (18:39)
--- NOTE | 2024-05-09 12:37 | Hospitalist Progress Note ---
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 Pt's symptoms adequately controlled with current medication management. Expect pt to pass while hospitalized; if change in pt's status, may consider discharge with home hospice. Hospital course prior to [employer] ME[employer] MACH[employer] detailed below. (2) Septic shock: Plan: Patient with leukocytosis, pneumonia on chest x-ray. CT chest showed possible PNA and pneumobilia - Elevated lactate and procal; biofire and nasal MRSA neg - Blood cultures and urine culture neg at 48 hrs - Etiology: iatrogenic pneumonia v pneumobilia, given history and chest CT PNA more likely - given low platelets, elevated D-dimer, low fibrinogen, and elevated PT/aPTT- concern for DIC, however peripheral smear was reassuring; as pt's coag studies remain abnormal, concern for DIC remains (hem/onc consulted who recommended supportive management) - pt's ABX discontinued (3) Acute hypoxic respiratory failure: Plan: Acute hypoxic respiratory failurelikely mixed etiology in the setting of acute CHF, A-fib RVR, and possible underlying pneumonia. - CT chest showed bilateral airspace opacities and interstitial thickening possibly PNA and superimposed pulmonary edema as well as a possible lesion - ABG with hypoxia respiratory alkalosis - PE unlikely given systemic anticoagulation; although, pt does have other clots throughout UE - will discontinue ABX - continue oxygen for comfort PRN (4) Encephalopathy: Plan: Likely secondary to underlying sepsis. CT head 05/02 unremarkable. 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 Improving, but pt remains delirious d/t multiple factors. (5) Acute kidney injury: Plan: Likely prerenal in the setting of septic shock. Resolved. (6) Acute systolic heart failure: Plan: - TTE 04/20: Moderate to severely reduced EF, with mild concentric hypertrophy, severe valvular aortic stenosis with moderate mitral regurg and elevated RV systolic pressure 40-50. - discontinue levophed drip (7) Atrial fibrillation with rapid ventricular response: Plan: - Cardioverted 05/02, 05/04. Discontinue monitoring on telemetry - discontinue amiodarone (8) CAD (coronary artery disease): Plan: as above (9) Severe aortic stenosis: Plan: Last admission, cardiology recommended TAVR consult if pt becomes stable enough to proceed. At this point in pt's disease process, do not expect pt to stabilize enough for this evaluation/procedure. 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 Pt found to have right sided UE DVT and some thrombosis of right UE radial artery. Pt's presentation consistent with DIC Admission and Anticipated Discharge Date Admission Date: May 02, 2024 Supervising Physician Co-Signing Physician Notes I also saw the patient with the resident and confirmed hicks portions of the clinical history and exam. I agree with the impression and plan as noted in the resident documentation. Family visiting and at bedside. Patient is now on comfort care. During our visit, he is sleeping. Son reports that they sent some discomfort and he had been recently medicated. At present, no distress is appreciated. Son had some very appropriate insightful questions with regards to end-of-life which were answered to the best of my ability. Will continue as needed medications, titrating as needed. Son will reach out to staff should he sense that his father is having any pain/discomfort. Subjective Pt resting in bed, comfortable this AM. Family at bedside. No new concerns or questions. Review of Systems Review of Systems: As per HPI Physical Exam Physical Exam: Constitutional: ill appearing, no acute distress HEENT: normocephalic CV: decreased pulses in bilateral LE and UE Respiratory: no increased work of breathing Neuro: sleeping- did not awake Results & Data Results & Data Vital Signs (Past 12 Hours) Vital Signs O2 Del Method O2 Flow Rate 05/09/24 09:51 Nasal Cannula 6 Resident Activity Tracking Resident Involvement: Resident Care Provided Care Provided: Adult Hospital Medicine (10) Mitral regurgitation Cardiac valve disease etiology: nonrheumatic Qualified Code(s): I34.0 - Nonrheumatic mitral (valve) insufficiency
[2024-05-09] MEDS: LORazepam 0.5 MG in SYRINGE 0.25 ML IV PRN (18:17)
[2024-05-09] MEDS: HYDROmorphone INJ 0.5 MG/0.5 ML SYR IV PRN (20:19)
[2024-05-10] MEDS ORDERED: Nursing to Pharmacy Communication SCH (01:15)
[2024-05-10] MEDS ORDERED: HYDROmorphone INJ 1 MG/ML SYRINGE IV PRN (01:29)
--- NOTE | 2024-05-10 02:03 | Death Pronouncement Note ---
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 Came to bedside to confirm. No respirations. No heart sounds. No palpable pulses. Pupils fixed and dilated. No pain response. Family at bedside. certificate completed. Additional Data Confirmation of : no pulse, no respirations, no heart sounds and pupils fixed and dilated (no response to pain) Family: at bedside Attending/PCP notified?: Yes Attending physician: Tuan Vigil, DO Was code activated?: No Autopsy requested?: No credit union examiner notified?: No Resident Activity Tracking Resident Involvement: Resident Care Provided Care Provided: Adult Hospital Medicine
--- NOTE | 2024-05-10 06:46 | Discharge Summary ---
Date of Service May 10, 2024 Admission HPI Per Admitting Provider Vasile Thomas is an 84yo male presenting from [facility] with confusion. Patient is an 84yo male with history of CAD, severe aortic stenosis, MR, GERD and HFrEF who was recently admitted to [facility] after presenting with a left M1 embolic CVA. Patient had a thrombectomy performed by Neurosurgery on 04/03/24. 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 CVA thought to be secondary to undiagnosed atrial fibrillation. Patient was started on Coumadin for anticoagulation. Patient's hospital course was complicated by an episode of flash pulmonary edema requiring diuresis. Also with ongoing hematuria which was treated with continuous bladder irrigation. Patient was discharged to [facility] on 04/29/24. Patient confused tonight and was brought to [facility]. On arrival he was tachycardic - atrial fibrillation with HR of 140 - 160. Blood pressure was unobtainable initially. He was tachypneic. Saturation was unobtainable initially. Patient was emergently cardioverted at bedside with improvement in heart rate. He is answering some questions but is confused. Offers no complaints. ER Course: Midazolam 1mg IV Levophed gtt Cefepime 2gm Admission Exam Per Admitting Provider General: patient ill in appearance, answers some questions and follows commands Skin: warm, dry, intact, no rashes or lesions HEENT: NC/AT, PERRL, EOMI, anicteric sclera, conjunctiva without injection, external ear normal to inspection and nontender, nares patent, moist mucus membranes, dentition intact, no oropharyngeal lesions, neck supple, trachea midline, no LAD, no thyromegaly, no JVD Heart: +S1/S2, irregularly irregular, 3/6 [place] across precordium Lungs: tachypneic, no rales/rhonchi/wheezes anteriorly Abd: +BS, soft, ND, no masses/organomegaly/ascites Ext: cool feet and hands, palpable distal pulses Neuro: patient moving all extremities Principal Diagnosis sepsis secondary to pulmonary source, DIC Discharge Exam Pt passed overnight. No exam performed by myself. Discharge Data Allergies Allergy/AdvReac Type Severity Reaction Status Date / Time No Known Allergies Allergy Verified 04/03/24 20:34 Consultations 05/02/24 05:22 ED Decision to Admit Stat 05/02/24 07:38 Consult [employer] Routine 05/07/24 09:57 Consult Hematology Routine Ordered Studies 05/02/24 06:47 CT Abdomen and Pelvis [CT abd pelvis wo con] Stat CT head/brain wo con Stat IMPRESSION: 1. Significantly suboptimal examination without oral or IV contrast. There is also significant streak and motion artifact. 2. Multifocal airspace consolidation is seen at both lung bases. 3. Cardiomegaly noting small left and trace right pleural effusions. 4. There is a small focus of indeterminate gas within the right hepatic lobe which could represent trace pneumobilia versus portal venous gas. No pneumobilia was seen on several prior CT scans. Clinical correlation will be essential. 5. Retrosigmoid fecal retention and moderate constipation. 6. The bladder wall is significantly thickened, which may related to chronic outlet obstruction. Correlate with urinalysis. 7. Punctate nonobstructing left renal calculus. 8. There is body wall and mesenteric edema suggesting fluid overload. 9. Question gastric wall thickening. This is not well assessed by CT. If clinically warranted this could be further assessed with endoscopy. 10. Additional findings as above. 05/02/24 06:48 CT chest diagnostic wo con Stat IMPRESSION: 1. Interval progression of the multifocal bilateral airspace opacities and interstitial thickening. This may represent a pneumonia with superimposed pulmonary edema. 2. Trace right and small left pleural effusions. 3. Cardiomegaly. 4. The irregular 12 mm density within the right upper lobe on the prior chest CT is likely obscured by the airspace opacities. Therefore, [address] follow-up recommended for further evaluation of this possible pulmonary lesion. 5. Please refer to the same day abdomen and pelvis CT for further evaluation of the abdominal structures including the punctate focus of gas within the right hepatic lobe. 05/06/24 07:38 US arterial duplex UE RT Routine US venous duplex arm [US venous doppler UE RT] Routine IMPRESSION: 1. There is nearly occlusive to occlusive deep venous thrombosis in the right subclavian and axillary veins. 2. There is extensive occlusive superficial venous thrombosis in the right basilic vein. 3. Nonvisualization of the right ulnar vein. 4. Additional findings as above. Hospital Course (1) End of life care: Pt peacefully overnight surrounded by friends. Hospital course prior to [facility] detailed below. (2) Septic shock: Patient with leukocytosis, pneumonia on chest x-ray. CT chest showed possible PNA and pneumobilia - Elevated lactate and procal; biofire and nasal MRSA neg - Blood cultures and urine culture neg at 48 hrs - Etiology: iatrogenic pneumonia v pneumobilia, given history and chest CT PNA more likely - given low platelets, elevated D-dimer, low fibrinogen, and elevated PT/aPTT- concern for DIC, however peripheral smear was reassuring; as pt's coag studies remain abnormal, concern for DIC remains (hem/onc consulted who recommended supportive management) - pt's ABX discontinued (3) Acute hypoxic respiratory failure: Acute hypoxic respiratory failurelikely mixed etiology in the setting of acute CHF, A-fib RVR, and possible underlying pneumonia. - CT chest showed bilateral airspace opacities and interstitial thickening possibly PNA and superimposed pulmonary edema as well as a possible lesion - ABG with hypoxia respiratory alkalosis - PE unlikely given systemic anticoagulation; although, pt does have other clots throughout UE - will discontinue ABX - continue oxygen for comfort PRN (4) Encephalopathy: Likely secondary to underlying sepsis. CT head 05/02 unremarkable. 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 Improving, but pt remains delirious d/t multiple factors. (5) Acute kidney injury: Likely prerenal in the setting of septic shock. Resolved. (6) Acute systolic heart failure: - TTE 04/20: Moderate to severely reduced EF, with mild concentric hypertrophy, severe valvular aortic stenosis with moderate mitral regurg and elevated RV systolic pressure 40-50. - discontinue levophed drip (7) Atrial fibrillation with rapid ventricular response: - Cardioverted 05/02, 05/04. Discontinue monitoring on telemetry - discontinue amiodarone (8) CAD (coronary artery disease): as above (9) Severe aortic stenosis: Last admission, cardiology recommended TAVR consult if pt becomes stable enough to proceed. At this point in pt's disease process, do not expect pt to stabilize enough for this evaluation/procedure. 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 Pt found to have right sided UE DVT and some thrombosis of right UE radial artery. Pt's presentation consistent with DIC Total Time Total Time Spent Total Time Spent (In Minutes): I do not see the patient on the date of his . 5 minutes was spent reviewing notes and completing documentation. Discharge Plan Discharge Items Patient Disposition: Other Date/Time: 05/10/24 01:56 Supervising Physician Co-Signing Physician Notes The patient was on comfort care and passed in the overnight hours with family at bedside. I reviewed the documentation in the discharge summary and note and agree. I did not see the patient on the date of his . Resident Activity Tracking Resident Involvement: Resident Care Provided Care Provided: Adult Hospital Medicine
== END 2024-05-10 04:09 | disposition expired | DRG 871 ==
LOC: SUATTDRO → ED 03:39 → SUATTDRO 06:02 → 1E 06:02 → 3N 05-08 21:09